=== PATIENT | male | born 1955 | race Caucasian/White ===

== ENCOUNTER 2022-12-05 19:26 | Inpatient (IN) | payer MEDICARE ==
--- NOTE | 2022-12-05 20:15 | ED ---
General Adult HPI - General Source: patient Mode of arrival: ambulatory <Chad Alba - Last Filed: 12/05/22 20:13> <Mariusz Alvarado - Last Filed: 12/05/22 23:59> - General Chief complaint: Urogenital Stated complaint: urination issues - History of Present Illness Initial comments: 67-year-old kidney transplant patient presents to the ED with a chief complaint of decreased urination. States over the past 2 or 3 days has had decreased urination despite normal eating and drinking habits. Associated fever. Denies dysuria. Denies hematuria. Denies abdominal pain. Other complaints. (Chad Alba) Dictation was produced using [employer] dictation software. please excuse any grammatical, word or spelling errors. Chief Complaint: 67-year-old male visiting in town from [place] presents to the ER for urinary retention and dysuria History of Present Illness: 67-year-old male has past medical history of kidney transplant. Kidney transplant was performed at [facility] approximately 15 years ago. Patient takes immunosuppressive medications. Over last 1 week patient has been having mild dysuria suprapubic pain. Patient also complaining of urinary retention. States that his urine appears more yellow than usual. Denies any testicular or penile pain. The ROS documented in this emergency department record has been reviewed and confirmed by me. Those systems with pertinent positive or negative responses have been documented in the HPI. All other systems are other negative and/or noncontributory. (Mariusz Alvarado) - Related Data Allergies Allergy/AdvReac Type Severity Reaction Status Date / Time allopurinol AdvReac Unknown Verified 12/05/22 20:06 Review of Systems ROS Other: All systems not noted in ROS Statement are negative. <Chad Alba - Last Filed: 12/05/22 20:13> ROS Other: All systems not noted in ROS Statement are negative. <Mariusz Alvarado - Last Filed: 12/05/22 23:59> ROS Statement: Those systems with pertinent positive or pertinent negative responses have been documented in the HPI. Past Medical History Past Medical History: Diabetes Mellitus Additional Past Medical History / Comment(s): Type 1, post transplant Additional Past Surgical History / Comment(s): Kidney transplant 2004 Past Psychological History: No Psychological Hx Reported Smoking Status: Never smoker Past Alcohol Use History: Occasional Past Drug Use History: None Reported <AnjaliChad - Last Filed: 12/05/22 20:13> General Exam <Mariusz Alvarado - Last Filed: 12/05/22 23:59> - General Exam Comments Initial Comments: PHYSICAL EXAM: General Impression: Alert and oriented x3, not in acute distress HEENT: Normocephalic atraumatic, extra-ocular movements intact, pupils equal and reactive to light bilaterally, mucous membranes moist. Cardiovascular: Heart regular rate and rhythm Chest: Able to complete full sentences, no retractions, no tachypnea Abdomen: abdomen soft, non-tender, non-distended, no organomegaly Musculoskeletal: Pulses present and equal in all extremities, no peripheral edema Motor: no focal deficits noted Neurological: CN II-XII grossly intact, no focal motor or sensory deficits noted Skin: Intact with no visualized rashes Psych: Normal affect and mood (Mariusz Alvarado) Course Vital Signs 12/05/22 19:59 Temperature 99.7 F H Pulse Rate 110 H Respiratory 16 Rate Blood Pressure 113/69 O2 Sat by Pulse 98 Oximetry Medical Decision Making - Lab Data Result diagrams: 12/05/22 22:00 12/05/22 22:00 <Maruisz Alvarado - Last Filed: 12/05/22 23:59> - Medical Decision Making Was pt. sent in by a medical professional or institution (SHANIQUA Marin, COMBAT INFORMATION CENTER OFFICER, urgent care, hospital, or custodial...) When possible be specific @ -No Did you speak to anyone other than the patient for history (EMS, parent, family, police, friend...)? What history was obtained from this source @ -No Did you review nursing and triage notes (agree or disagree)? Why? @ -I reviewed and agree with nursing and triage notes Were old charts reviewed (outside hosp., previous admission, EMS record, old EKG, old radiological studies, urgent care reports/EKG's, custodial records)? Report findings @ -No old charts were reviewed Differential Diagnosis (chest pain, altered mental status, abdominal pain women, abdominal pain men, vaginal bleeding, musculoskeletal, weakness, fever, dyspnea, syncope, headache, dizziness, GI bleed, back pain, seizure, CVA, palpatations, mental health)? @ -Differential Abdominal Pain Men: Appendicitis, cholecystitis, diverticulosis, ischemic bowel, pancreatitis, hepatitis, UTI, gastroenteritis, AAA, incarcerated hernia, bowel obstruction, constipation, inflammatory bowel, hepatitis, peptic ulcer disease, splenic infarction, perforated viscus, testicular torsion, this is not meant to be an all-inclusive list EKG interpreted by me (3pts min.). @ -None done X-rays interpreted by me (1pt min.). @ -None done CT interpreted by me (1pt min.). @ -None done U/S interpreted by me (1pt. min.). @ -None done What testing was considered but not performed or refused? (CT, X-rays, U/S, labs)? Why? @ -None What meds were considered but not given or refused? Why? @ -None Did you discuss the management of the patient with other professionals (professionals i.e. , PA, COMB[employer] INFORMATION CENTER OFFICER, lab, RT, psych nurse, social services counselor, launch commander [place] police, teacher, school services officer, caseworker protective services)? Give summary @ -Imaging and clinical presentation discussed with [facility] for admission Was smoking cessation discussed for >3mins.? @ -No Was critical care preformed (if so, how long)? @ -No Were there social determinants of health that impacted care today? How? (Homelessness, low income, unemployed, alcoholism, drug addiction, transportation, low edu. Level, literacy, decrease access to med. care, [facility], rehab)? @ -No Was there de-escalation of care discussed even if they declined (Discuss DNR or withdrawal of care, Hospice)? DNR status @ -No What co-morbidities impacted this encounter? (DM, HTN, Smoking, COPD, CAD, Cancer, CVA, ARF, Chemo, Hep., AIDS, mental health diagnosis, sleep apnea, morbid obesity)? @ -History of kidney transplant Was patient admitted / discharged? Hospital course, mention meds given and route, prescriptions, significant lab abnormalities, going to OR and other pertinent info. @ -67-year-old male presents emergency department for oliguria. Patient's history of kidney transplant. He also has associated abdominal pain and urinary symptoms. Vital signs upon arrival shows mild tachycardia 110. Patient's old. Bedside. Physical examination is benign. Elevated renal markers with a c reatinine of 2.4 BUN of 57. Patient states that his last creatinine was 1.5. Urinalysis suspicious for a urinary tract infection. Patient given ceftriaxone. Bladder scan was less than 1 50 mL. Patient be admitted with consultation to nephrology for acute kidney injury Undiagnosed new problem with uncertain prognosis? @ -No Drug Therapy requiring intensive monitoring for toxicity (Heparin, Nitro, Insulin, Cardizem)? @ -No Were any procedures done? @ -No Diagnosis/symptom? Acute, or Chronic, or Acute on Chronic? Uncomplicated (without systemic symptoms) or Complicated (systemic symptoms)? @ -1. Acute kidney injury, complicated by history of kidney transplant Side effects of treatment? @ -No Exacerbation, Progression, or Severe Exacerbation? @ -No Poses a threat to life or bodily function? How? (Chest pain, USA, MS, pneumonia, PE, COPD, DKA, ARF, appy, cholecystitis, CVA, Diverticulitis, Homicidal, Suicidal, threat to staff... and all critical care pts) @ -yes (Mariusz Alvarado) - Lab Data Lab Results 12/05/22 12/05/22 12/05/22 Range/Units 22:00 22:00 22:00 WBC 11.6 H (3.8-10.6) k/uL RBC 4.26 L (4.30-5.90) m/uL Hgb 12.6 L (13.0-17.5) gm/dL Hct 37.2 L (39.0-53.0) % MCV 87.4 (80.0-100.0) fL MCH 29.6 (25.0-35.0) pg MCHC 33.9 (31.0-37.0) g/dL RDW 13.1 (11.5-15.5) % Plt Count 256 (150-450) k/uL MPV 7.2 Neutrophils % 78 % Lymphocytes % 11 % Monocytes % 7 % Eosinophils % 2 % Basophils % 0 % Neutrophils # 9.1 H (1.3-7.7) k/uL Lymphocytes # 1.3 (1.0-4.8) k/uL Monocytes # 0.8 (0-1.0) k/uL Eosinophils # 0.2 (0-0.7) k/uL Basophils # 0.0 (0-0.2) k/uL Sodium 132 L (137-145) mmol/L Potassium 4.2 (3.5-5.1) mmol/L Chloride 94 L (98-107) mmol/L Carbon Dioxide 28 (22-30) mmol/L Anion Gap 10 mmol/L BUN 57 H (9-20) mg/dL Creatinine 2.41 H (0.66-1.25) mg/dL Est GFR (CKD-EPI)AfAm 31 (>60 ml/min/1.73 sqM) Est GFR (CKD-EPI)NonAf 27 (>60 ml/min/1.73 sqM) Glucose 99 (74-99) mg/dL Plasma Lactic Acid Fidel 0.8 (0.7-2.0) mmol/L Calcium 9.6 (8.4-10.2) mg/dL Total Bilirubin 1.4 H (0.2-1.3) mg/dL AST 49 (17-59) U/L ALT 28 (4-49) U/L Alkaline Phosphatase 146 H (38-126) U/L Total Protein 6.8 (6.3-8.2) g/dL Albumin 4.0 (3.5-5.0) g/dL Amylase 33 (30-110) U/L Lipase 26 (23-300) U/L Urine Color Urine Appearance (Clear) Urine pH (5.0-8.0) Ur Specific [place] (1.001-1.035) Urine Protein (Negative) Urine Glucose (UA) (Negative) Urine Ketones (Negative) Urine Blood (Negative) Urine Nitrite (Negative) Urine Bilirubin (Negative) Urine Urobilinogen (<2.0) mg/dL Ur Leukocyte Esterase (Negative) Urine RBC (0-5) /hpf Urine WBC (0-5) /hpf Ur Squamous Epith Cells (0-4) /hpf Hyaline Casts (0-2) /lpf 12/05/22 Range/Units 22:01 WBC (3.8-10.6) k/uL RBC (4.30-5.90) m/uL Hgb (13.0-17.5) gm/dL Hct (39.0-53.0) % MCV (80.0-100.0) fL MCH (25.0-35.0) pg MCHC (31.0-37.0) g/dL RDW (11.5-15.5) % Plt Count (150-450) k/uL MPV Neutrophils % % Lymphocytes % % Monocytes % % Eosinophils % % Basophils % % Neutrophils # (1.3-7.7) k/uL Lymphocytes # (1.0-4.8) k/uL Monocytes # (0-1.0) k/uL Eosinophils # (0-0.7) k/uL Basophils # (0-0.2) k/uL Sodium (137-145) mmol/L Potassium (3.5-5.1) mmol/L Chloride (98-107) mmol/L Carbon Dioxide (22-30) mmol/L Anion Gap mmol/L BUN (9-20) mg/dL Creatinine (0.66-1.25) mg/dL Est GFR (CKD-EPI)AfAm (>60 ml/min/1.73 sqM) Est GFR (CKD-EPI)NonAf (>60 ml/min/1.73 sqM) Glucose (74-99) mg/dL Plasma Lactic Acid Fidel (0.7-2.0) mmol/L Calcium (8.4-10.2) mg/dL Total Bilirubin (0.2-1.3) mg/dL AST (17-59) U/L ALT (4-49) U/L Alkaline Phosphatase (38-126) U/L Total Protein (6.3-8.2) g/dL Albumin (3.5-5.0) g/dL Amylase (30-110) U/L Lipase (23-300) U/L Urine Color Yellow Urine Appearance Cloudy (Clear) Urine pH 5.0 (5.0-8.0) Ur Specific [place] 1.027 (1.001-1.035) Urine Protein 1+ H (Negative) Urine Glucose (UA) Negative (Negative) Urine Ketones Trace H (Negative) Urine Blood Moderate H (Negative) Urine Nitrite Negative (Negative) Urine Bilirubin Negative (Negative) Urine Urobilinogen <2.0 (<2.0) mg/dL Ur Leukocyte Esterase Small H (Negative) Urine RBC 58 H (0-5) /hpf Urine WBC 31 H (0-5) /hpf Ur Squamous Epith Cells 1 (0-4) /hpf Hyaline Casts 23 H (0-2) /lpf Disposition <Cabatu,Chad - Last Filed: 12/05/22 20:13> Decision Time: 23:59 <Mariusz Alvarado - Last Filed: 12/05/22 23:59> Clinical Impression: GUY (acute kidney injury) Disposition: ADMITTED IP TO THIS HOSP Condition: Fair Referrals: None,Stated [Primary Care Provider] - 1-2 days
[2022-12-05 22:10] LABS: Basophils % (A) 0 %; Eosinophils # (A) 0.2 k/uL (0-0.7); Eosinophils % (A) 2 %; HCT 37.2 % (39.0-53.0); HGB 12.6 gm/dL (13.0-17.5); Lymphocytes # (A) 1.3 k/uL (1.0-4.8); Lymphocytes % (A) 11 %; MCH 29.6 pg (25.0-35.0); MCHC 33.9 g/dL (31.0-37.0); MCV 87.4 fL (80.0-100.0); Mean Platelet Volume 7.2; Monocytes # (A) 0.8 k/uL (0-1.0); Monocytes % (A) 7 %; Neutrophils # (A) 9.1 k/uL (1.3-7.7); Neutrophils % (A) 78 %; Platelet Count 256 k/uL (150-450); RBC 4.26 m/uL (4.30-5.90); RDW 13.1 % (11.5-15.5); WBC 11.6 k/uL (3.8-10.6)
[2022-12-05 22:22] LABS: ALT 28 U/L (4-49); AST 49 U/L (17-59); African American GFR (CKD) 31 (>60 ml/min/1.73 sqM); Alkaline Phosphatase 146 U/L (38-126); Amylase 33 U/L (30-110); Anion Gap 10 mmol/L; Blood Urea Nitrogen 57 mg/dL (9-20); Calcium 9.6 mg/dL (8.4-10.2); Carbon Dioxide 28 mmol/L (22-30); Chloride 94 mmol/L (98-107); Glucose 99 mg/dL (74-99); Lipase 26 U/L (23-300); Non-African American GFR(CKD) 27 (>60 ml/min/1.73 sqM); Potassium 4.2 mmol/L (3.5-5.1); Sodium 132 mmol/L (137-145); Total Bilirubin 1.4 mg/dL (0.2-1.3); Total Protein 6.8 g/dL (6.3-8.2)
[2022-12-05 22:48] LABS: Appearance,Urine Cloudy (Clear); Bilirubin,Urine Negative (Negative); Blood,Urine Moderate (Negative); Color,Urine Yellow; Glucose,Urine (UA) Negative (Negative); Hyaline Casts,Urine 23 /lpf (0-2); Ketones,Urine Trace (Negative); Leukocyte Esterase,Urine Small (Negative); Nitrite,Urine Negative (Negative); Protein,Urine 1+ (Negative); RBC,Urine 58 /hpf (0-5); Specific Gravity,Urine 1.027 (1.001-1.035); Squamous Epithelial Cell,Urine 1 /hpf (0-4); Urobilinogen,Urine <2.0 mg/dL (<2.0); WBC,Urine 31 /hpf (0-5)
[2022-12-05] MEDS ORDERED: NALOXONE 0.4 MG/ML 1 ML VIAL IV PRN (23:54)
[2022-12-05] MEDS ORDERED: cefTRIAXone IN SWFI 1,000 MG/10 ML SYRINGE IVP STA (23:54)
[2022-12-06] MEDS: SODIUM CHLORIDE 0.9% 1,000 ML IV SCH ×2 (00:29→12:14)
[2022-12-06] MEDS ORDERED: INSULIN ASPART (NovoLOG) 100 UNIT/ML VIAL SQ ONE (01:21)
[2022-12-06] MEDS ORDERED: DEXTROSE 50% SYRINGE 50 ML IVP PRN ×4 (01:58→09:18)
[2022-12-06 07:40] LABS: Glucose,Whole Blood 139 mg/dL (70-110)
[2022-12-06] MEDS: INSULIN ASPART (NovoLOG) 100 UNIT/ML VIAL SQ SCH ×4 (07:51→19:54)
[2022-12-06] MEDS ORDERED: SIMETHICONE 80 MG CHEWABLE PO PRN (09:17)
[2022-12-06 11:05] LABS: Glucose,Whole Blood 260 mg/dL (70-110)
--- NOTE | 2022-12-06 11:27 | US ---
EXAMINATION TYPE: US renal transplant w dop DATE OF EXAM: 12/06/2022 COMPARISON: NONE CLINICAL INDICATION: Male, 67 years old with history of Jacklyn; JACKLYN per order. Hx of transplant kidney i n RLQ in 2004. EXAM PERFORMED: Grayscale on [place] kidneys and Doppler duplex and Grayscale imaging of the transplan [place] kidney. EXAM MEASUREMENTS: [place] Right Kidney: Not visualized [place] Left Kidney: Not visualized Transplant Kidney: 12.4 x 7.0 x 6.3 cm. Location of transplanted kidney: Right lower quadrant ANATOMY: [place] Right Kidney: Not visualized [place] Left Kidney: Not visualized Transplant Kidney: Anechoic appearance medially-renal pelvis appears dilated. Transplant kidney measures upper limits of normal versus minimally enlarged. There is arterial and ve nous spectral waveforms present. Low resistance arterial waveforms noted. Bladder: Appears wnl Bilateral Jets seen: No IMPRESSION: 1. Transplant kidney demonstrates mild dilation of the collecting system. Resistive indices are not calculated by the mri technologist. There is arterial and venous flow noted to the kidney. 2. [place] kidneys not visualized.
[2022-12-06 11:36] LABS: Basophils % (A) 0 %; Eosinophils # (A) 0.1 k/uL (0-0.7); Eosinophils % (A) 2 %; HCT 34.3 % (39.0-53.0); HGB 11.3 gm/dL (13.0-17.5); Lymphocytes # (A) 0.6 k/uL (1.0-4.8); Lymphocytes % (A) 9 %; MCH 29.9 pg (25.0-35.0); MCHC 32.9 g/dL (31.0-37.0); Mean Platelet Volume 7.3; Monocytes # (A) 0.5 k/uL (0-1.0); Monocytes % (A) 7 %; Neutrophils # (A) 5.4 k/uL (1.3-7.7); Neutrophils % (A) 81 %; Platelet Count 197 k/uL (150-450); RBC 3.77 m/uL (4.30-5.90); RDW 13.3 % (11.5-15.5); WBC 6.7 k/uL (3.8-10.6)
[2022-12-06 11:42] LABS: African American GFR (CKD) 43 (>60 ml/min/1.73 sqM); Anion Gap 11 mmol/L; Blood Urea Nitrogen 52 mg/dL (9-20); Calcium 8.8 mg/dL (8.4-10.2); Carbon Dioxide 23 mmol/L (22-30); Chloride 96 mmol/L (98-107); Glucose 236 mg/dL (74-99); Non-African American GFR(CKD) 37 (>60 ml/min/1.73 sqM); Potassium 4.9 mmol/L (3.5-5.1); Sodium 130 mmol/L (137-145)
[2022-12-06] MEDS: TACROLIMUS 1 MG CAP PO SCH ×2 (11:59→19:55)
[2022-12-06] MEDS: SODIUM BICARBONATE TAB 650 MG TAB PO SCH ×2 (11:59→19:54)
[2022-12-06] MEDS: FAMOTIDINE 20 MG TAB PO PRN (12:00)
[2022-12-06] MEDS ORDERED: TAMSULOSIN 0.4 MG CAP.ER.24H PO SCH (12:00)
[2022-12-06] MEDS: LEVOTHYROXINE 88 MCG TAB PO SCH (12:00)
--- NOTE | 2022-12-06 13:13 | P.HPIM ---
History of Present Illness H&P Date: 12/06/22 History of present illness; patient is 67-year-old gentleman with past medical history significant for renal transplant, insulin-dependent diabetes mellitus presented to the ER because of decreased urination. Patient received renal transplant about 15 years ago. For the last couple of days patient has been experiencing decreased urination. Patient also noticing painful urination and pain in the suprapubic area. Patient also noticed that his urine was darker in color, denied any blood in urine. There was no complain of increased frequency of micturition. No complaint of fever or chills. Patient denied any nausea, vomiting or abdominal pain. Patient also has been noticing episodes of chest pain. Chest pain is Central in location, brought on by exertion, no relieving factors associated, pain is nonradiating. Patient complaining of shortness of breath on exertion as well. Denies any swelling of feet. Because of these complaints patient came to the ER of [facility]. Initial lab work done in the ER showed white count 11.6, hemoglobin 12.6, platelet count 256, sodium 132 Potassium 4.2, BUN57, creatinine 2.41 Patient was admitted to the medicine service for further evaluation and treatment REVIEW OF SYSTEMS: CONSTITUTIONAL: No fever, no malaise, no fatigue. HEENT: No recent visual problems or hearing problems. Denied any sore throat. CARDIOVASCULAR: No orthopnea, PND, no palpitations, no syncope. PULMONARY: no cough, no hemoptysis. GASTROINTESTINAL: No diarrhea, no nausea, no vomiting, no abdominal pain. NEUROLOGICAL: No headaches, no weakness, no numbness. HEMATOLOGICAL: Denies any bleeding or petechiae. GENITOURINARY: As mentioned in HPI MUSCULOSKELETAL/RHEUMATOLOGICAL: Denies any joint pain, swelling, or any muscle pain. ENDOCRINE: Denies any polyuria or polydipsia. The rest of the 14-point review of systems is negative. PHYSICAL EXAMINATION: GENERAL: The patient is alert and oriented x3, not in any acute distress. Well developed, well nourished. HEENT: Pupils are round and equally reacting to light. EOMI. No scleral icterus. No conjunctival pallor. Normocephalic, atraumatic. No pharyngeal erythema. No thyromegaly. CARDIOVASCULAR: S1 and S2 present. No murmurs, rubs, or gallops. PULMONARY: Chest is clear to auscultation, no wheezing or crackles. ABDOMEN: Soft, nontender, nondistended, normoactive bowel sounds. No palpable organomegaly. MUSCULOSKELETAL: No joint swelling or deformity. EXTREMITIES: No cyanosis, clubbing, or pedal edema. NEUROLOGICAL: Gross neurological examination did not reveal any focal deficits. SKIN: No rashes. Assessment and plan Acute kidney injury UTI History of renal transplant Insulin-dependent diabetes mellitus Chest pain Exertional dyspnea Plan; monitor vital signs Monitor CBC Monitor CMP Strict I's and O's Daily weights Continue IV fluids Avoid nephrotoxic agents Check tacrolimus levels Ordered ultrasound of kidneys Consult nephrology Consult cardiology Resume home meds DVT prophylaxis: Past Medical History Past Medical History: Diabetes Mellitus Additional Past Medical History / Comment(s): DM Type 1 post transplant, IgA nephropathy History of Any Multi-Drug Resistant Organisms: None Reported Additional Past Surgical History / Comment(s): Kidney transplant 2004, PD cath/removal, eye surgery as child Past Psychological History: No Psychological Hx Reported Smoking Status: Never smoker Past Alcohol Use History: Occasional Past Drug Use History: None Reported Medications and Allergies Home Medications Medication Instructions Recorded Confirmed Type Colchicine 0.6 mg PO DAILY 12/06/22 12/06/22 History Famotidine [Pepcid] 20 mg PO BID PRN 12/06/22 12/06/22 History Fluocinonide 0.05% [Lidex 0.05% 12/06/22 History cream] Insulin Glargine [Lantus Vial] 22 unit SQ HS 12/06/22 12/06/22 History Levothyroxine Sodium 88 mcg PO 0900 12/06/22 12/06/22 History Loperamide [Imodium] 2 mg PO Q6HR PRN 12/06/22 12/06/22 History Magnesium 400 mg PO BID 12/06/22 12/06/22 History Simethicone 180 mg PO 5XD PRN 12/06/22 12/06/22 History Simvastatin 40 mg PO HS 12/06/22 12/06/22 History Sodium Bicarbonate Tab 650 mg PO BID 12/06/22 12/06/22 History Tacrolimus [Prograf] 2 mg PO 2100 12/06/22 12/06/22 History Tacrolimus [Prograf] 3 mg PO 0900 12/06/22 12/06/22 History Tamsulosin HCl [Flomax] 0.4 mg PO DAILY 12/06/22 12/06/22 History hydroCHLOROthiazide 12.5 mg PO DAILY 12/06/22 12/06/22 History mycophenolate mofetiL [Cellcept] 1,000 mg PO BID 12/06/22 12/06/22 History Allergies Allergy/AdvReac Type Severity Reaction Status Date / Time allopurinol AdvReac Unknown Verified 12/05/22 20:06 Physical Exam Vitals: Vital Signs Temp Pulse Pulse Resp BP BP Pulse Ox 12/06/22 07:39 98.5 F 100 16 115/70 96 12/06/22 00:45 98 18 117/72 96 12/05/22 23:51 98.6 F 100 18 131/71 99 12/05/22 19:59 99.7 F H 110 H 16 113/69 98 Intake and Output 12/05/22 12/06/22 12/06/22 22:59 06:59 14:59 Other: # Voids 1 Weight 74.389 kg 74.389 kg Results CBC & Chem 7: 12/06/22 09:55 12/06/22 09:55 Labs: Abnormal Lab Results - Last 24 Hours (Table) 12/05/22 12/05/22 12/05/22 Range/Units 22:00 22:00 22:01 WBC 11.6 H (3.8-10.6) k/uL RBC 4.26 L (4.30-5.90) m/uL Hgb 12.6 L (13.0-17.5) gm/dL Hct 37.2 L (39.0-53.0) % Neutrophils # 9.1 H (1.3-7.7) k/uL Sodium 132 L (137-145) mmol/L Chloride 94 L (98-107) mmol/L BUN 57 H (9-20) mg/dL Creatinine 2.41 H (0.66-1.25) mg/dL POC Glucose (mg/dL) (70-110) mg/dL Total Bilirubin 1.4 H (0.2-1.3) mg/dL Alkaline Phosphatase 146 H (38-126) U/L Urine Protein 1+ H (Negative) Urine Ketones Trace H (Negative) Urine Blood Moderate H (Negative) Ur Leukocyte Esterase Small H (Negative) Urine RBC 58 H (0-5) /hpf Urine WBC 31 H (0-5) /hpf Hyaline Casts 23 H (0-2) /lpf 12/06/22 Range/Units 07:39 WBC (3.8-10.6) k/uL RBC (4.30-5.90) m/uL Hgb (13.0-17.5) gm/dL Hct (39.0-53.0) % Neutrophils # (1.3-7.7) k/uL Sodium (137-145) mmol/L Chloride (98-107) mmol/L BUN (9-20) mg/dL Creatinine (0.66-1.25) mg/dL POC Glucose (mg/dL) 139 H (70-110) mg/dL Total Bilirubin (0.2-1.3) mg/dL Alkaline Phosphatase (38-126) U/L Urine Protein (Negative) Urine Ketones (Negative) Urine Blood (Negative) Ur Leukocyte Esterase (Negative) Urine RBC (0-5) /hpf Urine WBC (0-5) /hpf Hyaline Casts (0-2) /lpf Thrombosis Risk Factor Assmnt - Choose All That Apply Any of the Below Risk Factors Present?: No Other Risk Factors: Yes Each Risk Factor Represents 2 Points: Age 61-74 years Other congenital or acquired thrombophilia - If yes, enter type in comment: No Thrombosis Risk Factor Assessment Total Risk Factor Score: 2 Thrombosis Risk Factor Assessment Level: Low Risk
--- NOTE | 2022-12-06 13:27 | P.NPCON ---
History of Present Illness - Reason for Consult acute renal failure - History of Present Illness Patient is a 67-year-old male with history of donor renal transplant for IgA nephropathy about 15 years ago. Patient desires in [place] and is here on vacation. He is admitted to the hospital with history of decreased urine output, abdominal discomfort. Patient initially denied any fever or chills however today he was noted to have fever of 100.5F oral. No history of cough however patient admits to some shortness of breath on exertion which is chronic No complaints of chest pain No history of nausea vomiting. Patient states his baseline creatinine had been about 1.6 mg/dL It was 2.4 and admission and down to 1.8 today. Patient is maintained on IV fluids UA is suggestive of UTI. Patient has history of BPH and is maintained on Flomax at home. No history of repeated urinary tract infections. Maintained on CellCept and tacrolimus for immunosuppression. Review of Systems As per HPI. Past Medical History Past Medical History: Diabetes Mellitus Additional Past Medical History / Comment(s): DM Type 1 post transplant, IgA nephropathy History of Any Multi-Drug Resistant Organisms: None Reported Additional Past Surgical History / Comment(s): Kidney transplant 2004, PD cath/removal, eye surgery as child Past Psychological History: No Psychological Hx Reported Smoking Status: Never smoker Past Alcohol Use History: Occasional Past Drug Use History: None Reported Medications and Allergies Home Medications Medication Instructions Recorded Confirmed Type Colchicine 0.6 mg PO DAILY 12/06/22 12/06/22 History Famotidine [Pepcid] 20 mg PO BID PRN 12/06/22 12/06/22 History Fluocinonide 0.05% [Lidex 0.05% 12/06/22 History cream] Insulin Glargine [Lantus Vial] 22 unit SQ 12/06/22 12/06/22 History Levothyroxine Sodium 88 mcg PO 0900 12/06/22 12/06/22 History Loperamide [Imodium] 2 mg PO Q6HR PRN 12/06/22 12/06/22 History Magnesium 400 mg PO BID 12/06/22 12/06/22 History Simethicone 180 mg PO 5XD PRN 12/06/22 12/06/22 History Simvastatin 40 mg PO HS 12/06/22 12/06/22 History Sodium Bicarbonate Tab 650 mg PO BID 12/06/22 12/06/22 History Tacrolimus [Prograf] 2 mg PO 2100 12/06/22 12/06/22 History Tacrolimus [Prograf] 3 mg PO 0900 12/06/22 12/06/22 History Tamsulosin HCl [Flomax] 0.4 mg PO DAILY 12/06/22 12/06/22 History hydroCHLOROthiazide 12.5 mg PO DAILY 12/06/22 12/06/22 History mycophenolate mofetiL [Cellcept] 1,000 mg PO BID 12/06/22 12/06/22 History Allergies Allergy/AdvReac Type Severity Reaction Status Date / Time allopurinol AdvReac Unknown Verified 12/06/22 13:15 Physical Exam Vitals: Vital Signs Temp Pulse Pulse Resp BP BP Pulse Ox 12/06/22 13:05 100.5 F H 12/06/22 07:39 98.5 F 100 16 115/70 96 12/06/22 00:45 98 18 117/72 96 12/05/22 23:51 98.6 F 100 18 131/71 99 12/05/22 19:59 99.7 F H 110 H 16 113/69 98 Intake and Output 12/05/22 12/06/22 12/06/22 22:59 06:59 14:59 Other: # Voids 1 Weight 74.389 kg 74.389 kg Awake, comfortable, not in acute distress Alert oriented 3 Examination of the heart S1 and S2 Examination the lungs bilateral breath sounds are heard Abdomen is soft nontender. Renal allograft nontender Examination of lower extremity shows no edema [employer] exam grossly intact Results - Lab Results Most recent lab results Calcium 8.8 mg/dL (8.4-10.2) 12/06/22 09:55 Magnesium 1.9 mg/dL (1.6-2.3) 12/06/22 00:29 12/06/22 09:55 12/06/22 09:55 Assessment and Plan Assessment: 1. Acute kidney injury associated with underlying infection, currently nonoliguric. Rule out urine retention. Blood pressure is also on the lower side. UA shows 1+ protein and moderate blood WBCs 31 and RBCs 58. Ultrasound of the transplant kidney shows mild allocation of the collecting system. Bladder is not distended. 2. 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 3. Status post donor renal transplant about 15 years ago for IgA nep hropathy maintained on tacrolimus and CellCept. 4. Pyuria rule out UTI 5. Dyspnea on exertion with no previously diagnosed coronary artery disease or pulmonary disease Plan: Continue with IV fluids Continue with IV antibiotics Check post void bladder scan Follow-up and urine cultures Check chest x-ray Follow-up on tacrolimus level Continue with current immunosuppression. Repeat labs in a.m. Thank you for the consultation. We will continue to follow the patient with you during his hospitalization
[2022-12-06] MEDS: ACETAMINOPHEN TAB 325 MG TAB PO PRN ×2 (13:36→20:07)
--- NOTE | 2022-12-06 13:53 | XR ---
EXAMINATION TYPE: XR chest 2V DATE OF EXAM: 12/06/2022 1:49 PM COMPARISON: None TECHNIQUE: XR chest 2V Frontal and lateral views of the chest. CLINICAL INDICATION:Male, 67 years old with history of Dyspnea; FINDINGS: Lungs/Pleura: There is no evidence of pleural effusion, focal consolidation, or pneumothorax. Pulmonary vascularity: Unremarkable. Heart/mediastinum: Cardiomediastinal silhouette is unremarkable. Musculoskeletal: No acute osseous pathology. IMPRESSION: No acute cardiopulmonary disease/process.
--- NOTE | 2022-12-06 15:17 | P.CRDCN ---
History of Present Illness Consult date: 12/06/22 Chief complaint: Chest discomfort History of present illness: The patient is a 67-year-old gentleman with diabetes and hypertension and dyslipidemia and history of renal transplant in 2014 presented to the hospital complaining of chest discomfort. He described intermittent episodes of chest discomfort in the middle of the chest as a dull/pressure on the chest was no radiation and no associated symptoms. Beside that lately he has been exper iencing increasing in the shortness of breath with exertion. No dizziness or lightheadedness and no feeling of heart racing or fluttering and no presyncope or syncope. He does have multiple risk factors for CAD including diabetes and hypertension and dyslipidemia. I'm not quite sure if he is physically very active. He was found to be in mild renal failure and he is known to have kidney transplant. Currently the nephrology service is on the case. The chest x-ray did not show any acute abnormalities. No cardiac workup including EKG or cardiac enzymes performed at this point and no echocardiogram was performed as well. The examination is remarkable for regular rhythm with a systolic murmur at the right upper sternal border and clear breathing sounds bilaterally and no lower extremity edema Assessment Chest discomfort Shortness of breath Multiple risk factors including diabetes and hypertension and dyslipidemia History of renal transplant Plan Obtain baseline EKG Serial cardiac enzymes to rule out acute coronary syndrome Obtain an echocardiogram was Doppler Consider obtaining a stress test to rule out severe CAD if the cardiac enzymes are unremarkable Past Medical History Past Medical History: Diabetes Mellitus Additional Past Medical History / Comment(s): DM Type 1 post transplant, IgA nephropathy History of Any Multi-Drug Resistant Organisms: None Reported Additional Past Surgical History / Comment(s): Kidney transplant 2004, PD cath/removal, eye surgery as child Past Psychological History: No Psychological Hx Reported Smoking Status: Never smoker Past Alcohol Use History: Occasional Past Drug Use History: None Reported Medications and Allergies Home Medications Medication Instructions Recorded Confirmed Type Colchicine 0.6 mg PO DAILY 12/06/22 12/06/22 History Famotidine [Pepcid] 20 mg PO BID 12/06/22 12/06/22 History Fluocinonide 0.05% [Lidex 0.05% 1 applic TOPICAL DAILY PRN 12/06/22 12/06/22 History cream] INSULIN LISPRO (HumaLOG) [humaLOG] See Protocol SQ ACHS 12/06/22 12/06/22 History Insulin Glargine [Lantus Vial] 22 unit SQ HS 12/06/22 12/06/22 History L.acidoph,Paracasei, B.lactis 1 cap PO DAILY 12/06/22 12/06/22 History [Probiotic] Levothyroxine Sodium 88 mcg PO DAILY 12/06/22 12/06/22 History Loperamide [Imodium] 2 mg PO Q6HR PRN 12/06/22 12/06/22 History Magnesium Oxide [Mag-Ox] 800 mg PO BID 12/06/22 12/06/22 History Multivitamins, Thera [Multivitamin 1 tab PO DAILY 12/06/22 12/06/22 History (formulary)] Simethicone 180 mg PO 5XD PRN 12/06/22 12/06/22 History Simvastatin 40 mg PO HS 12/06/22 12/06/22 History Sodium Bicarbonate Tab 1,300 mg PO BID 12/06/22 12/06/22 History Tacrolimus [Prograf] 2 mg PO HS 12/06/22 12/06/22 History Tacrolimus [Prograf] 3 mg PO DAILY 12/06/22 12/06/22 History Tamsulosin HCl [Flomax] 0.4 mg PO HS 12/06/22 12/06/22 History Turmeric Root Extract [Turmeric] 500 mg PO DAILY 12/06/22 12/06/22 History Ubidecarenone [Coenzyme Q10] 200 mg PO DAILY 12/06/22 12/06/22 History hydroCHLOROthiazide 12.5 mg PO DAILY 12/06/22 12/06/22 History mycophenolate mofetiL [Cellcept] 1,000 mg PO BID 12/06/22 12/06/22 History Allergies Allergy/AdvReac Type Severity Reaction Status Date / Time allopurinol AdvReac Unknown Verified 12/06/22 13:15 Physical Exam Vitals: Vital Signs Temp Pulse Pulse Resp BP BP Pulse Ox 12/06/22 14:43 101.5 F H 12/06/22 13:05 100.5 F H 12/06/22 07:39 98.5 F 100 16 115/70 96 12/06/22 00:45 98 18 117/72 96 12/05/22 23:51 98.6 F 100 18 131/71 99 12/05/22 19:59 99.7 F H 110 H 16 113/69 98 Intake and Output 12/06/22 12/06/22 12/06/22 06:59 14:59 22:59 Other: Voiding Method Toilet Urinal # Voids 1 Weight 74.389 kg Results 12/06/22 09:55 12/06/22 09:55 Cardiac Enzymes 12/05/22 Range/Units 22:00 AST 49 (17-59) U/L CBC 12/05/22 12/06/22 Range/Units 22:00 09:55 WBC 11.6 H 6.7 (3.8-10.6) k/uL RBC 4.26 L 3.77 L (4.30-5.90) m/uL Hgb 12.6 L 11.3 L (13.0-17.5) gm/dL Hct 37.2 L 34.3 L (39.0-53.0) % Plt Count 256 197 (150-450) k/uL Comprehensive Metabolic Panel 12/05/22 12/06/22 Range/Units 22:00 09:55 Sodium 132 L 130 L (137-145) mmol/L Potassium 4.2 4.9 (3.5-5.1) mmol/L Chloride 94 L 96 L (98-107) mmol/L Carbon Dioxide 28 23 (22-30) mmol/L BUN 57 H 52 H (9-20) mg/dL Creatinine 2.41 H 1.83 H (0.66-1.25) mg/dL Glucose 99 236 H (74-99) mg/dL Calcium 9.6 8.8 (8.4-10.2) mg/dL AST 49 (17-59) U/L ALT 28 (4-49) U/L Alkaline Phosphatase 146 H (38-126) U/L Total Protein 6.8 (6.3-8.2) g/dL Albumin 4.0 (3.5-5.0) g/dL Current Medications Generic Name Dose Route Start Last Admin Trade Name Freq PRN Reason Stop Dose Admin Acetaminophen 650 mg 12/06/22 13:06 12/06/22 13:36 Acetaminophen Tab 325 Mg Tab PO 650 mg Q6HR PRN Administration Fever and/ or Pain Atorvastatin Calcium 20 mg 12/06/22 21:00 Atorvastatin 20 Mg Tab PO HS EMILIANO Dextrose/Water 25 ml 12/06/22 01:58 Dextrose 50% Syringe 50 Ml IVP PER PROTOCOL PRN Hypoglycemia Protocol Dextrose/Water 50 ml 12/06/22 01:58 Dextrose 50% Syringe 50 Ml IVP PER PROTOCOL PRN Hypoglycemia Protocol Dextrose/Water 25 ml 12/06/22 09:18 Dextrose 50% Syringe 50 Ml IVP PER PROTOCOL PRN Hypoglycemia Protocol Dextrose/Water 50 ml 12/06/22 09:18 Dextrose 50% Syringe 50 Ml IVP PER PROTOCOL PRN Hypoglycemia Protocol Famotidine 20 mg 12/06/22 09:17 12/06/22 12:00 Famotidine 20 Mg Tab PO 20 mg BID PRN Administration Dyspepsia Sodium Chloride 1,000 mls @ 75 mls/hr 12/05/22 23:45 12/06/22 12:14 Saline 0.9% IV 75 mls/hr .[id number] EMILIANO Administration Insulin Aspart 0 unit 12/06/22 07:30 12/06/22 12:10 Insulin Aspart (Novolog) 100 Unit/Ml Vial SQ 13 unit ACHS EMILIANO Administration Protocol Insulin Detemir 22 unit 12/06/22 21:00 Insulin Detemir (Levemir) 100 Unit/Ml Syr SQ HS EMILIANO Levothyroxine Sodium 88 mcg 12/06/22 12:00 12/06/22 12:00 Levothyroxine 88 Mcg Tab PO 88 mcg 0900 EMILIANO Administration Mycophenolate Mofetil 1,000 mg 12/06/22 12:00 12/06/22 11:58 Mycophenolate Mofetil 500 Mg Tab PO 1,000 mg BID EMILIANO Administration Naloxone HCl 0.2 mg 12/05/22 23:54 Naloxone 0.4 Mg/Ml 1 Ml Vial IV Q2M PRN Opioid Reversal Simethicone 160 mg 12/06/22 09:17 Simethicone 80 Mg Chewable PO 5XD PRN Bloating Sodium Bicarbonate 650 mg 12/06/22 12:00 12/06/22 11:59 Sodium Bicarbonate Tab 650 Mg Tab PO 650 mg BID EMILIANO Administration Tacrolimus 2 mg 12/06/22 21:00 Tacrolimus 1 Mg Cap PO 2100 EMILIANO Tacrolimus 3 mg 12/06/22 12:00 12/06/22 11:59 Tacrolimus 1 Mg Cap PO 3 mg 0900 EMILIANO Administration Tamsulosin HCl 0.4 mg 12/06/22 21:00 Tamsulosin 0.4 Mg Cap.Er.24h PO HS EMILIANO Intake and Output 12/06/22 12/06/22 12/06/22 06:59 14:59 22:59 Other: Voiding Method Toilet Urinal # Voids 1 Weight 74.389 kg 12/06/22 09:55 12/06/22 09:55
[2022-12-06 16:47] LABS: Glucose,Whole Blood 201 mg/dL (70-110)
[2022-12-06 19:48] LABS: Glucose,Whole Blood 185 mg/dL (70-110)
[2022-12-06] MEDS: TAMSULOSIN 0.4 MG CAP.ER.24H PO SCH (19:55)
[2022-12-06] MEDS: ATORVASTATIN 20 MG TAB PO SCH (19:55)
--- NOTE | 2022-12-06 20:24 | P.CONS ---
History of Present Illness - Reason for Consult Consult date: 12/06/22 - History of Present Illness Patient is a 67-year-old male with a past medical history significant for renal failure secondary to IgA nephropathy in this patient who is status post donor renal transplant 15 years ago patient resides in [place] and is here on vacation presenting to the hospital for not feeling well did have a decreased urine output and burning of urine and not feeling well patient mention no change in his immunosuppressive medication recently patient denies having any headache did have mild URI symptoms no chest pain or shortness of breath occasional cough some nausea but no vomiting no abdominal pain or diarrhea on presentation to the hospital he did have a low-grade fever of 99.7 and he did spike a fever of 101.5 F this afternoon that has prompted this infectious disease consultation patient was mildly tachycardic not hypoxic or need for supplemental oxygen and hemodynamically stable patient did have active lab 0.6 with a left shift BUN and creatinine mildly elevated bilirubin mild elevated the liver enzymes amylase lipase has been negative urine was positive Past Medical History Past Medical History: Diabetes Mellitus Additional Past Medical History / Comment(s): DM Type 1 post transplant, IgA nephropathy History of Any Multi-Drug Resistant Organisms: None Reported Additional Past Surgical History / Comment(s): Kidney transplant 2004, PD cath/removal, eye surgery as child Past Psychological History: No Psychological Hx Reported Smoking Status: Never smoker Past Alcohol Use History: Occasional Past Drug Use History: None Reported Medications and Allergies Home Medications Medication Instructions Recorded Confirmed Type Colchicine 0.6 mg PO DAILY 12/06/22 12/06/22 History Famotidine [Pepcid] 20 mg PO BID 12/06/22 12/06/22 History Fluocinonide 0.05% [Lidex 0.05% 1 applic TOPICAL DAILY PRN 12/06/22 12/06/22 History cream] INSULIN LISPRO (HumaLOG) [humaLOG] See Protocol SQ ACHS 12/06/22 12/06/22 History Insulin Glargine [Lantus Vial] 22 unit SQ HS 12/06/22 12/06/22 History L.acidoph,Paracasei, B.lactis 1 cap PO DAILY 12/06/22 12/06/22 History [Probiotic] Levothyroxine Sodium 88 mcg PO DAILY 12/06/22 12/06/22 History Loperamide [Imodium] 2 mg PO Q6HR PRN 12/06/22 12/06/22 History Magnesium Oxide [Mag-Ox] 800 mg PO BID 12/06/22 12/06/22 History Multivitamins, Thera [Multivitamin 1 tab PO DAILY 12/06/22 12/06/22 History (formulary)] Simethicone 180 mg PO 5XD PRN 12/06/22 12/06/22 History Simvastatin 40 mg PO HS 12/06/22 12/06/22 History Sodium Bicarbonate Tab 1,300 mg PO BID 12/06/22 12/06/22 History Tacrolimus [Prograf] 2 mg PO HS 12/06/22 12/06/22 History Tacrolimus [Prograf] 3 mg PO DAILY 12/06/22 12/06/22 History Tamsulosin HCl [Flomax] 0.4 mg PO HS 12/06/22 12/06/22 History Turmeric Root Extract [Turmeric] 500 mg PO DAILY 12/06/22 12/06/22 History Ubidecarenone [Coenzyme Q10] 200 mg PO DAILY 12/06/22 12/06/22 History hydroCHLOROthiazide 12.5 mg PO DAILY 12/06/22 12/06/22 History mycophenolate mofetiL [Cellcept] 1,000 mg PO BID 12/06/22 12/06/22 History Allergies Allergy/AdvReac Type Severity Reaction Status Date / Time allopurinol AdvReac Unknown Verified 12/06/22 13:15 Physical Exam Vitals: Vital Signs Temp Pulse Pulse Resp BP BP Pulse Ox 12/06/22 14:43 101.5 F H 12/06/22 13:28 93 18 131/78 97 12/06/22 13:05 100.5 F H 12/06/22 07:39 98.5 F 100 16 115/70 96 12/06/22 00:45 98 18 117/72 96 12/05/22 23:51 98.6 F 100 18 131/71 99 12/05/22 19:59 99.7 F H 110 H 16 113/69 98 Intake and Output 12/06/22 12/06/22 12/06/22 06:59 14:59 22:59 Other: Voiding Method Toilet Urinal # Voids 1 Weight 74.389 kg Results CBC & Chem 7: 12/06/22 09:55 12/06/22 09:55 Labs: Abnormal Lab Results - Last 24 Hours (Table) 12/05/22 12/05/22 12/05/22 Range/Units 22:00 22:00 22:01 WBC 11.6 H (3.8-10.6) k/uL RBC 4.26 L (4.30-5.90) m/uL Hgb 12.6 L (13.0-17.5) gm/dL Hct 37.2 L (39.0-53.0) % Neutrophils # 9.1 H (1.3-7.7) k/uL Lymphocytes # (1.0-4.8) k/uL Sodium 132 L (137-145) mmol/L Chloride 94 L (98-107) mmol/L BUN 57 H (9-20) mg/dL Creatinine 2.41 H (0.66-1.25) mg/dL Glucose (74-99) mg/dL POC Glucose (mg/dL) (70-110) mg/dL Total Bilirubin 1.4 H (0.2-1.3) mg/dL Alkaline Phosphatase 146 H (38-126) U/L Urine Protein 1+ H (Negative) Urine Ketones Trace H (Negative) Urine Blood Moderate H (Negative) Ur Leukocyte Esterase Small H (Negative) Urine RBC 58 H (0-5) /hpf Urine WBC 31 H (0-5) /hpf Hyaline Casts 23 H (0-2) /lpf 12/06/22 12/06/22 12/06/22 Range/Units 07:39 09:55 09:55 WBC (3.8-10.6) k/uL RBC 3.77 L (4.30-5.90) m/uL Hgb 11.3 L (13.0-17.5) gm/dL Hct 34.3 L (39.0-53.0) % Neutrophils # (1.3-7.7) k/uL Lymphocytes # 0.6 L (1.0-4.8) k/uL Sodium 130 L (137-145) mmol/L Chloride 96 L (98-107) mmol/L BUN 52 H (9-20) mg/dL Creatinine 1.83 H (0.66-1.25) mg/dL Glucose 236 H (74-99) mg/dL POC Glucose (mg/dL) 139 H (70-110) mg/dL Total Bilirubin (0.2-1.3) mg/dL Alkaline Phosphatase (38-126) U/L Urine Protein (Negative) Urine Ketones (Negative) Urine Blood (Negative) Ur Leukocyte Esterase (Negative) Urine RBC (0-5) /hpf Urine WBC (0-5) /hpf Hyaline Casts (0-2) /lpf 12/06/22 Range/Units 11:02 WBC (3.8-10.6) k/uL RBC (4.30-5.90) m/uL Hgb (13.0-17.5) gm/dL Hct (39.0-53.0) % Neutrophils # (1.3-7.7) k/uL Lymphocytes # (1.0-4.8) k/uL Sodium (137-145) mmol/L Chloride (98-107) mmol/L BUN (9-20) mg/dL Creatinine (0.66-1.25) mg/dL Glucose (74-99) mg/dL POC Glucose (mg/dL) 260 H (70-110) mg/dL Total Bilirubin (0.2-1.3) mg/dL Alkaline Phosphatase (38-126) U/L Urine Protein (Negative) Urine Ketones (Negative) Urine Blood (Negative) Ur Leukocyte Esterase (Negative) Urine RBC (0-5) /hpf Urine WBC (0-5) /hpf Hyaline Casts (0-2) /lpf Assessment and Plan Plan: 1-Patient was in the hospital with sepsis in this patient did have fever tachycardia elevated white count source 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
[2022-12-06] MEDS ORDERED: SODIUM BICARBONATE TAB 650 MG TAB PO SCH (21:00)
[2022-12-06] MEDS: INSULIN DETEMIR (LEVEMIR) 100 UNIT/ML SYR SQ SCH (22:07)
[2022-12-07] MEDS: SODIUM CHLORIDE 0.9% 1,000 ML IV SCH ×2 (03:58→17:07)
[2022-12-07 07:32] LABS: Glucose,Whole Blood 133 mg/dL (70-110)
[2022-12-07] MEDS: INSULIN ASPART (NovoLOG) 100 UNIT/ML VIAL SQ SCH ×5 (07:53→21:17)
[2022-12-07] MEDS: SODIUM BICARBONATE TAB 650 MG TAB PO SCH ×2 (08:59→21:16)
[2022-12-07] MEDS: LEVOTHYROXINE 88 MCG TAB PO SCH (08:59)
[2022-12-07] MEDS: TACROLIMUS 1 MG CAP PO SCH ×2 (08:59→21:16)
[2022-12-07] MEDS ORDERED: TACROLIMUS 1 MG CAP PO SCH (09:00)
[2022-12-07] MEDS ORDERED: TAMSULOSIN 0.4 MG CAP.ER.24H PO SCH (09:00)
[2022-12-07] MEDS ORDERED: LEVOTHYROXINE 88 MCG TAB PO SCH (09:00)
[2022-12-07] MEDS: ISOSORBIDE MONONITRATE ER 30 MG TAB.ER.24H PO SCH (09:57)
[2022-12-07] MEDS: ASPIRIN 81 MG PO SCH (09:57)
[2022-12-07] MEDS: METOPROLOL SUCCINATE (ER) 25 MG TAB.ER.24H PO SCH ×2 (09:57→17:05)
--- NOTE | 2022-12-07 10:52 | P.PN ---
Subjective Progress Note Date: 12/07/22 HISTORY OF PRESENT ILLNESS: This is a 67-year-old male who lives in [place] and does not follow with a pattern duplicator regularly. He is currently in [place] until the middle of December vis [place] [place]. The patient has a history of hypertension, hyperlipidemia, diabetes, and kidney transplant in 2015. the patient is admitted to the hospital secondary to sepsis. 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 Patient has been febrile overnight with a temperature of 101.5F. He is on IV antibiotics. Cardiology was consulted as the patient has been complaining of shortness of breath and chest pain for the past 2-3 months. He states he has been unable to get this evaluated down in [place] due to weight times to see a physician. patient currently denies any chest pain or pressure this morning. He currently denies any shortness of br eath. Vital signs are stable. EKG obtained revealing biphasic T-wave in V2 and T-wave inversions in Lead 1 and V3-V6. PHYSICAL EXAM: VITAL SIGNS: Reviewed. GENERAL: Well-developed in no acute distress. NECK: Supple. No JVD or thyromegaly LUNGS: Respirations even and unlabored. Lungs essentially clear to auscultation bilaterally. HEART: Regular rate and rhythm. S1 and S2 heard. EXTREMITIES: Normal range of motion. No clubbing or cyanosis. Peripheral pulses intact. 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 ACS ruled out Abnormal EKG Hypertension Hyperlipidemia Diabetes History of kidney transplant 2014 PLAN: Add aspirin, metoprolol, and imdur 2D echo ordered. Await results. Patient will require further testing to rule out CAD after his acute infection resolves Patient to follow up with Dr. De Leon next week Further recommendations pending patient course Nurse practitioner note has been reviewed by physician. Signing provider agrees with the documented findings, assessment, and plan of care. Objective - Vital Signs Vital signs: Vital Signs Temp 99.2 F 12/07/22 08:00 Pulse 80 12/07/22 08:00 Resp 16 12/07/22 08:00 BP 101/64 12/07/22 08:00 Pulse Ox 96 12/07/22 08:00 FiO2 Intake & Output 12/06/22 12/07/22 12/07/22 18:59 06:59 18:59 Intake Total 950 900 240 Balance 950 900 240 Intake: Intake, IV Titration 950 900 Amount Sodium Chloride 0.9% 1, 900 900 000 ml @ 75 mls/hr IV . [id number] EMILIANO Rx#:[id number] cefTRIAXone 2 gm In 50 Sodium Chloride 0.9% 50 ml @ 100 mls/hr IVPB Q24HR EMILIANO Rx#:[id number] Oral 240 Other: Voiding Method Toilet Toilet Urinal Urinal # Voids 4 - Labs CBC & Chem 7: 12/06/22 09:55 12/06/22 09:55 Labs: Abnormal Lab Results - Last 24 Hours (Table) 12/06/22 12/06/22 12/06/22 Range/Units 09:55 09:55 11:02 RBC 3.77 L (4.30-5.90) m/uL Hgb 11.3 L (13.0-17.5) gm/dL Hct 34.3 L (39.0-53.0) % Lymphocytes # 0.6 L (1.0-4.8) k/uL Sodium 130 L (137-145) mmol/L Chloride 96 L (98-107) mmol/L BUN 52 H (9-20) mg/dL Creatinine 1.83 H (0.66-1.25) mg/dL Glucose 236 H (74-99) mg/dL POC Glucose (mg/dL) 260 H (70-110) mg/dL 12/06/22 12/06/22 12/07/22 Range/Units 16:46 19:47 07:30 RBC (4.30-5.90) m/uL Hgb (13.0-17.5) gm/dL Hct (39.0-53.0) % Lymphocytes # (1.0-4.8) k/uL Sodium (137-145) mmol/L Chloride (98-107) mmol/L BUN (9-20) mg/dL Creatinine (0.66-1.25) mg/dL Glucose (74-99) mg/dL POC Glucose (mg/dL) 201 H 185 H 133 H (70-110) mg/dL
[2022-12-07 11:02] LABS: African American GFR (CKD) 71 (>60 ml/min/1.73 sqM); Anion Gap 9 mmol/L; Blood Urea Nitrogen 36 mg/dL (9-20); Calcium 8.8 mg/dL (8.4-10.2); Carbon Dioxide 22 mmol/L (22-30); Chloride 100 mmol/L (98-107); Glucose 210 mg/dL (74-99); Non-African American GFR(CKD) 62 (>60 ml/min/1.73 sqM); Sodium 131 mmol/L (137-145)
[2022-12-07 11:06] LABS: Potassium 4.1 mmol/L (3.5-5.1)
[2022-12-07 11:21] LABS: Glucose,Whole Blood 225 mg/dL (70-110)
--- NOTE | 2022-12-07 13:10 | CA ---
Transthoracic Echo Report Name: Mauricio Byrne Age: 67 Gender: M : 1955 Exam Date: 12/07/2022 08:02 Exam Location: [facility] Ht (in): 70 Wt (lb): 164 Ordering Physician: Olivier De Leon MD ([id number]) Attending/Referring Phys: Electric Appliance Installer Krystle Sanders RDCS Procedure CPT: Indications: Chest Pain Cardiac Hx: Technical Quality: Fair Contrast 1: Total Dose (mL): Contrast 2: Total Dose (mL): MEASUREMENTS (Male / Female) Normal Values 2D ECHO LV Diastolic Diameter PLAX 4.1 cm 4.2 - 5.9 / 3.9 - 5.3 cm LV Systolic Diameter PLAX 2.9 cm IVS Diastolic Thickness 1.1 cm 0.6 - 1.0 / 0.6 - 0.9 cm LVPW Diastolic Thickness 1.2 cm 0.6 - 1.0 / 0.6 - 0.9 cm LV Relative Wall Thickness 0.6 RV Internal Dim ED PLAX 3.4 cm LA Volume 52.5 cm??? 18 - 58 / 22 - 52 cm??? M-MODE Aortic Root Diameter MM 3.1 cm LA Systolic Diameter MM 3.9 cm LA Ao Ratio MM 1.3 AV Cusp Separation MM 1.9 cm DOPPLER AV Peak Velocity 181.2 cm/s AV Peak Gradient 13.1 mmHg AV Mean Velocity 119.9 cm/s AV Mean Gradient 6.7 mmHg AV Velocity Time Integral 32.8 cm LVOT Peak Velocity 107.0 cm/s LVOT Peak Gradient 4.6 mmHg MV Area PHT 3.9 cm??? Mitral E Point Velocity 93.6 cm/s Mitral A Point Velocity 102.1 cm/s Mitral E to A Ratio 0.9 MV Deceleration Time 195.5 ms MV E' Velocity 10.0 cm/s Mitral E to MV E' Ratio 9.4 TR Peak Velocity 255.0 cm/s TR Peak Gradient 26.0 mmHg Right Ventricular Systolic Press 29.8 mmHg FINDINGS Left Ventricle Mildly increased left ventricular wall thickness. Left ventricular cavity size normal. Normal left ventricular systolic function with no obvious regional wall motion abnormalities. Left ventricular ejection fraction is estimated at 55-60 %. Right Ventricle Normal right ventricular size and function. Right ventricular systolic pressure within normal limits. Right Atrium Normal right atrial size. Left Atrium Mildly increased left atrial area. Mitral Valve Structurally normal mitral valve. No mitral stenosis. Mild mitral regurgitation. Aortic Valve Trileaflet aortic valve. No aortic valve stenosis or regurgitation. Tricuspid Valve Structurally normal tricuspid valve. Mild tricuspid regurgitation. Pulmonic Valve Trace pulmonic regurgitation. Pericardium No pericardial effusion. Aorta Normal size aortic root and proximal ascending aorta. CONCLUSIONS Mildly increased left ventricular wall thickness Left ventricular ejection fraction 55-60% Mild mitral regurgitation RVSP 30 Previewed by: Dr. Jorge Luis Umanzor DO (Electronically Signed) Final Date: 07 December 2022 13:09
--- NOTE | 2022-12-07 13:10 | P.PN ---
Subjective Patient is seen for follow-up for acute kidney injury associated with underlying UTI and sepsis with volume depletion. Patient has a history of donor transplant about 15 years ago and follows in [place]. Patient is here in [place] for vacation and was admitted to the hospital with complaints of abdominal discomfort, fatigue. He also had fever and is currently maintained on IV fluids and IV antibiotics. Serum creatinine decreased to 1.2 from 2.4 on initial admission. No urinary symptoms Ultrasound showed some fullness of the transplant kidney. Objective - Vital Signs Vital signs: Vital Signs Temp 99.2 F 12/07/22 08:00 Pulse 80 12/07/22 08:00 Resp 16 12/07/22 08:00 BP 101/64 12/07/22 08:00 Pulse Ox 96 12/07/22 08:00 FiO2 Intake & Output 12/06/22 12/07/22 12/07/22 18:59 06:59 18:59 Intake Total 950 900 240 Balance 950 900 240 Intake: Intake, IV Titration 950 900 Amount Sodium Chloride 0.9% 1, 900 900 000 ml @ 75 mls/hr IV . [id number] EMILIANO Rx#:[id number] cefTRIAXone 2 gm In 50 Sodium Chloride 0.9% 50 ml @ 100 mls/hr IVPB Q24HR EMILIANO Rx#:[id number] Oral 240 Other: Voiding Method Toilet Toilet Toilet Urinal Urinal Urinal # Voids 4 - Exam Patient is awake, comfortable, no acute distress Examination of the heart S1 and S2 Examination of the lungs bilateral breath sounds are heard Abdomen is soft nontender Examination of lower extremities shows no edema HEMODIALYSIS LAB TECHNICIAN exam grossly intact - Labs CBC & Chem 7: 12/06/22 09:55 12/07/22 10:28 Labs: Abnormal Lab Results - Last 24 Hours (Table) 12/06/22 12/06/22 12/07/22 Range/Units 16:46 19:47 07:30 Sodium (137-145) mmol/L BUN (9-20) mg/dL Glucose (74-99) mg/dL POC Glucose (mg/dL) 201 H 185 H 133 H (70-110) mg/dL 12/07/22 12/07/22 Range/Units 10:28 11:18 Sodium 131 L (137-145) mmol/L BUN 36 H (9-20) mg/dL Glucose 210 H (74-99) mg/dL POC Glucose (mg/dL) 225 H (70-110) mg/dL Assessment and Plan Assessment: 1. Acute kidney injury associated with underlying infection, currently nonoliguric. Rule out urine retention. Blood pressure is also on the lower side. UA shows 1+ protein and moderate blood WBCs 31 and RBCs 58. Ultrasound of the transplant kidney shows mild dilatation of the collecting system. Bladder is not distended. 2. 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 3. Status post donor renal transplant about 15 years ago for IgA nephropathy maintained on tacrolimus and CellCept. 4. Pyuria rule out UTI 5. Dyspnea on exertion with no previously diagnosed coronary artery disease or pulmonary disease Plan: Continue with IV fluids Continue with IV antibiotics Check post void bladder scan Follow-up and urine cultures Continue with current immunosuppression
--- NOTE | 2022-12-07 13:31 | P.PN ---
Subjective Progress Note Date: 12/07/22 patient is 67-year-old gentleman with past medical history significant for renal transplant, insulin-dependent diabetes mellitus presented to the ER because of decreased urination. Patient received renal transplant about 15 years ago. For the last couple of days patient has been experiencing decreased urination. Patient also noticing painful urination and pain in the suprapubic area. Patient also noticed that his urine was darker in color, denied any blood in urine. There was no complain of increased frequency of micturition. No complaint of fever or chills. Patient denied any nausea, vomiting or abdominal pain. Patient also has been noticing episodes of chest pain. Chest pain is Central in location, brought on by exertion, no relieving factors associated, pain is nonradiating. Patient complaining of shortness of breath on exertion as well. Denies any swelling of feet. Because of these complaints patient came to the ER of [facility]. Initial lab work done in the ER showed white count 11.6, hemoglobin 12.6, platelet count 256, sodium 132 Potassium 4.2, BUN57, creatinine 2.41 Patient was admitted to the medicine service for further evaluation and treatment 12/07. Patient seen and examined. States fevers have improved, denies any chills. Denies any shortness of breath at rest or exertion REVIEW OF SYSTEMS: CONSTITUTIONAL: No fever, no malaise,. CARDIOVASCULAR: No chest pain, no palpitations, no syncope. PULMONARY: No shortness of breath GASTROINTESTINAL: No diarrhea, no nausea, no vomiting, no abdominal pain. NEUROLOGICAL: No headaches, no weakness, PHYSICAL EXAMINATION: GENERAL: The patient is alert and oriented x3, not in any acute distress. Well developed, well nourished. HEENT: Pupils are round and equally reacting to light. EOMI. No scleral icterus. No conjunctival pallor. Normocephalic, atraumatic. No pharyngeal erythema. No thyromegaly. CARDIOVASCULAR: S1 and S2 present. No murmurs, rubs, or gallops. PULMONARY: Chest is clear to auscultation, no wheezing or crackles. ABDOMEN: Soft, nontender, nondistended, normoactive bowel sounds. No palpable organomegaly. MUSCULOSKELETAL: No joint swelling or deformity. EXTREMITIES: No cyanosis, clubbing, or pedal edema. NEUROLOGICAL: Gross neurological examination did not reveal any focal deficits. SKIN: No rashes. Assessment and plan Monitor vital signs Monitor CBC Monitor CMP Follow-up on urine cultures Continue IV Rocephin Continue aspirin, metoprolol, Imdur Follow-up on 2-D echo Follow-up on nephrology recommendations Follow-up on ID recommendations Cardiology following Objective - Vital Signs Vital signs: Vital Signs Temp 99.2 F 12/07/22 08:00 Pulse 80 12/07/22 08:00 Resp 16 12/07/22 08:00 BP 101/64 12/07/22 08:00 Pulse Ox 96 12/07/22 08:00 FiO2 Intake & Output 12/06/22 12/07/22 12/07/22 18:59 06:59 18:59 Intake Total 950 900 240 Balance 950 900 240 Intake: Intake, IV Titration 950 900 Amount Sodium Chloride 0.9% 1, 900 900 000 ml @ 75 mls/hr IV . [id number] [facility] Rx#:[id number] cefTRIAXone 2 gm In 50 Sodium Chloride 0.9% 50 ml @ 100 mls/hr IVPB Q24HR [facility] Rx#:[id number] Oral 240 Other: Voiding Method Toilet Toilet Toilet Urinal Urinal Urinal # Voids 4 - Labs CBC & Chem 7: 12/06/22 09:55 12/07/22 10:28 Labs: Abnormal Lab Results - Last 24 Hours (Table) 12/06/22 12/06/22 12/07/22 Range/Units 16:46 19:47 07:30 Sodium (137-145) mmol/L BUN (9-20) mg/dL Glucose (74-99) mg/dL POC Glucose (mg/dL) 201 H 185 H 133 H (70-110) mg/dL 12/07/22 12/07/22 Range/Units 10:28 11:18 Sodium 131 L (137-145) mmol/L BUN 36 H (9-20) mg/dL Glucose 210 H (74-99) mg/dL POC Glucose (mg/dL) 225 H (70-110) mg/dL
[2022-12-07 15:31] LABS: Glucose,Whole Blood 206 mg/dL (70-110)
[2022-12-07] MEDS ORDERED: INSULIN ASPART (NovoLOG) 100 UNIT/ML VIAL SQ ONE (16:03)
[2022-12-07 17:39] LABS: Glucose,Whole Blood 129 mg/dL (70-110)
[2022-12-07] MEDS: ATORVASTATIN 20 MG TAB PO SCH (21:16)
[2022-12-07] MEDS: TAMSULOSIN 0.4 MG CAP.ER.24H PO SCH (21:16)
[2022-12-07] MEDS: INSULIN DETEMIR (LEVEMIR) 100 UNIT/ML SYR SQ SCH (21:16)
--- NOTE | 2022-12-07 22:43 | P.PN ---
Subjective Progress Note Date: 12/07/22 Principal diagnosis: Transplant Nephritis Patient is a 67-year-old male with a past medical history significant for renal transplant diabetes mellitus presented to hospital with urinary symptoms also noticed to be febrile. On today's evaluation that is 12/07/2022 the patient overall feels better and has improved no chest pain no shortness of breath or cough no abdominal pain no diarrhea Objective - Vital Signs Vital signs: Vital Signs Temp 99.2 F 12/07/22 08:00 Pulse 80 12/07/22 08:00 Resp 16 12/07/22 08:00 BP 101/64 12/07/22 08:00 Pulse Ox 96 12/07/22 08:00 FiO2 Intake & Output 12/06/22 12/07/22 12/07/22 18:59 06:59 18:59 Intake Total 950 900 240 Balance 950 900 240 Intake: Intake, IV Titration 950 900 Amount Sodium Chloride 0.9% 1, 900 900 000 ml @ 75 mls/hr IV . [id number] [facility] Rx#:[id number] cefTRIAXone 2 gm In 50 Sodium Chloride 0.9% 50 ml @ 100 mls/hr IVPB Q24HR [facility] Rx#:[id number] Oral 240 Other: Voiding Method Toilet Toilet Toilet Urinal Urinal Urinal # Voids 4 - Labs CBC & Chem 7: 12/06/22 09:55 12/07/22 10:28 Labs: Abnormal Lab Results - Last 24 Hours (Table) 12/06/22 12/06/22 12/06/22 Range/Units 09:55 09:55 16:46 RBC 3.77 L (4.30-5.90) m/uL Hgb 11.3 L (13.0-17.5) gm/dL Hct 34.3 L (39.0-53.0) % Lymphocytes # 0.6 L (1.0-4.8) k/uL Sodium 130 L (137-145) mmol/L Chloride 96 L (98-107) mmol/L BUN 52 H (9-20) mg/dL Creatinine 1.83 H (0.66-1.25) mg/dL Glucose 236 H (74-99) mg/dL POC Glucose (mg/dL) 201 H (70-110) mg/dL 12/06/22 12/07/22 12/07/22 Range/Units 19:47 07:30 10:28 RBC (4.30-5.90) m/uL Hgb (13.0-17.5) gm/dL Hct (39.0-53.0) % Lymphocytes # (1.0-4.8) k/uL Sodium 131 L (137-145) mmol/L Chloride (98-107) mmol/L BUN 36 H (9-20) mg/dL Creatinine (0.66-1.25) mg/dL Glucose 210 H (74-99) mg/dL POC Glucose (mg/dL) 185 H 133 H (70-110) mg/dL Assessment and Plan (1) UTI (urinary tract infection) Current Visit: Yes Status: Acute Code(s): N39.0 - URINARY TRACT INFECTION, SITE NOT SPECIFIED SNOMED Code(s): 20028394 Plan: 1-Patient was in the hospital with sepsis in this patient did have fever tachycardia elevated white count source 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
[2022-12-08] MEDS: SODIUM CHLORIDE 0.9% 1,000 ML IV SCH ×2 (04:16→19:00)
[2022-12-08 07:02] LABS: Glucose,Whole Blood 78 mg/dL (70-110)
[2022-12-08 08:04] VITALS: RESP 18
[2022-12-08 08:46] LABS: Basophils # (A) 0.01 X 10*3/uL (0.00-0.10); Basophils % (A) 0.2 %; Eosinophils # (A) 0.09 X 10*3/uL (0.04-0.35); Eosinophils % (A) 1.8 %; HGB 9.6 d/dL (12.0-15.0); Lymphocytes # (A) 0.75 X 10*3/uL (0.90-5.00); Lymphocytes % (A) 14.9 %; MCH 29.1 pg (27.0-32.0); MCHC 33.1 d/dL (32.0-37.0); MCV 87.9 FL (80.0-97.0); Mean Platelet Volume 8.8 FL (9.5-12.2); Monocytes % (A) 9.9 %; NRBC Per 100 WBC 0 X 10*3/uL (0.00-0.01); Neutrophils # (A) 3.64 X 10*3/uL (1.80-7.70); Neutrophils % (A) 72.4 %; Platelet Count 217 X 10*3/uL (140-440); RDW 12.9 % (11.5-14.5); WBC 5.03 X 10*3/uL (4.50-10.00)
[2022-12-08] MEDS: INSULIN ASPART (NovoLOG) 100 UNIT/ML VIAL SQ SCH ×4 (08:47→20:30)
[2022-12-08] MEDS: ISOSORBIDE MONONITRATE ER 30 MG TAB.ER.24H PO SCH (08:50)
[2022-12-08] MEDS: SODIUM BICARBONATE TAB 650 MG TAB PO SCH ×2 (08:50→20:31)
[2022-12-08] MEDS: LEVOTHYROXINE 88 MCG TAB PO SCH (08:50)
[2022-12-08] MEDS: TACROLIMUS 1 MG CAP PO SCH ×2 (08:51→20:31)
[2022-12-08] MEDS: ASPIRIN 81 MG PO SCH (08:55)
--- NOTE | 2022-12-08 08:56 | P.PN ---
Subjective Progress Note Date: 12/08/22 HISTORY OF PRESENT ILLNESS: This is a 67-year-old male who lives in [place] and does not follow with a ict business analyst regularly. He is currently in [place] until the middle of December vis [place]. The patient has a history of hypertension, hyperlipidemia, diabetes, and kidney transplant in 2014. the patient is admitted to the hospital secondary to sepsis. 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 Patient has been febrile overnight with a temperature of 101.5F. He is on IV antibiotics. Cardiology was consulted as the patient has been complaining of shortness of breath and chest pain for the past 2-3 months. He states he has been unable to get this evaluated down in [place] due to weight times to see a physician. patient currently denies any chest pain or pressure this morning. He currently denies any shortness of br eath. Vital signs are stable. EKG obtained revealing biphasic T-wave in V2 and T-wave inversions in Lead 1 and V3-V6. 12/08/2022 Patient examined this morning at the bedside. He is eating breakfast. Patient denies any shortness of breath. He reports having an episode of chest discomfort this morning that only lasted for a short period of time and went away on its own. He denies any chest pain at the time of examination. Patient has been afebrile. Echocardiogram completed revealing ejection fraction 55-60% with no wall motion abnormalities noted and mild mitral regurgitation. PHYSICAL EXAM: VITAL SIGNS: Reviewed. GENERAL: Well-developed in no acute distress. NECK: Supple. No JVD or thyromegaly LUNGS: Respirations even and unlabored. Lungs essentially clear to auscultation bilaterally. HEART: Regular rate and rhythm. S1 and S2 heard. EXTREMITIES: Normal range of motion. No clubbing or cyanosis. Peripheral pulses intact. 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 ACS ruled out Abnormal EKG Hypertension Hyperlipidemia Diabetes History of kidney transplant 2014 PLAN: Continue aspirin, metoprolol, and imdur Patient will require further testing to rule out CAD after his acute infection resolves Patient to follow up with Dr. De Leon next week Further recommendations pending patient course Nurse practitioner note has been reviewed by physician. Signing provider agrees with the documented findings, assessment, and plan of care. Objective - Vital Signs Vital signs: Vital Signs Temp 98.8 F 12/08/22 07:37 Pulse 69 12/08/22 07:37 Resp 18 12/08/22 07:37 BP 118/71 12/08/22 07:37 Pulse Ox 96 12/08/22 07:37 FiO2 Intake & Output 12/07/22 12/08/22 12/08/22 18:59 06:59 18:59 Intake Total 831 1140 Output Total 150 Balance 831 1140 -150 Intake: Intake, IV Titration 900 Amount Sodium Chloride 0.9% 1, 900 000 ml @ 75 mls/hr IV . [id number] [facility] Rx#:[id number] Oral 831 240 Output: Urine 150 Other: Voiding Method Toilet Toilet Urinal Urinal # Voids 4 1 # Bowel Movements 1 - Labs CBC & Chem 7: 12/08/22 06:09 12/07/22 10:28 Labs: Abnormal Lab Results - Last 24 Hours (Table) 12/07/22 12/07/22 12/07/22 Range/Units 10:28 11:18 15:29 RBC (4.40-5.60) X 10*6/uL Hgb (12.0-15.0) d/dL Hct (39.6-50.0) % MPV (9.5-12.2) FL Lymphocytes # (0.90-5.00) X 10*3/uL Sodium 131 L (137-145) mmol/L BUN 36 H (9-20) mg/dL Glucose 210 H (74-99) mg/dL POC Glucose (mg/dL) 225 H 206 H (70-110) mg/dL 12/07/22 12/08/22 Range/Units 17:37 06:09 RBC 3.30 L (4.40-5.60) X 10*6/uL Hgb 9.6 L (12.0-15.0) d/dL Hct 29.0 L (39.6-50.0) % MPV 8.8 L (9.5-12.2) FL Lymphocytes # 0.75 L (0.90-5.00) X 10*3/uL Sodium (137-145) mmol/L BUN (9-20) mg/dL Glucose (74-99) mg/dL POC Glucose (mg/dL) 129 H (70-110) mg/dL
[2022-12-08 11:57] LABS: Glucose,Whole Blood 159 mg/dL (70-110)
--- NOTE | 2022-12-08 12:28 | P.PN ---
Subjective Progress Note Date: 12/08/22 patient is 67-year-old gentleman with past medical history significant for renal transplant, insulin-dependent diabetes mellitus presented to the ER because of decreased urination. Patient received renal transplant about 15 years ago. For the last couple of days patient has been experiencing decreased urination. Patient also noticing painful urination and pain in the suprapubic area. Patient also noticed that his urine was darker in color, denied any blood in urine. There was no complain of increased frequency of micturition. No complaint of fever or chills. Patient denied any nausea, vomiting or abdominal pain. Patient also has been noticing episodes of chest pain. Chest pain is Central in location, brought on by exertion, no relieving factors associated, pain is nonradiating. Patient complaining of shortness of breath on exertion as well. Denies any swelling of feet. Because of these complaints patient came to the ER of [facility]. Initial lab work done in the ER showed white count 11.6, hemoglobin 12.6, platelet count 256, sodium 132 Potassium 4.2, BUN57, creatinine 2.41 Patient was admitted to the medicine service for further evaluation and treatment 12/07. Patient seen and examined. States fevers have improved, denies any chills. Denies any shortness of breath at rest or exertion 12/08. Patient seen and examined. Ambulating in the room without any diffic ulty. REVIEW OF SYSTEMS: CONSTITUTIONAL: No fever, no malaise,. CARDIOVASCULAR: No chest pain, no palpitations, no syncope. PULMONARY: No shortness of breath GASTROINTESTINAL: No diarrhea, no nausea, no vomiting, no abdominal pain. NEUROLOGICAL: No headaches, no weakness, PHYSICAL EXAMINATION: GENERAL: The patient is alert and oriented x3, not in any acute distress. Well developed, well nourished. HEENT: Pupils are round and equally reacting to light. EOMI. No scleral icterus. No conjunctival pallor. Normocephalic, atraumatic. No pharyngeal erythema. No thyromegaly. CARDIOVASCULAR: S1 and S2 present. No murmurs, rubs, or gallops. PULMONARY: Chest is clear to auscultation, no wheezing or crackles. ABDOMEN: Soft, nontender, nondistended, normoactive bowel sounds. No palpable organomegaly. MUSCULOSKELETAL: No joint swelling or deformity. EXTREMITIES: No cyanosis, clubbing, or pedal edema. NEUROLOGICAL: Gross neurological examination did not reveal any focal deficits. SKIN: No rashes. Assessment and plan Monitor vital signs Monitor CBC Monitor CMP Follow-up on urine cultures Continue IV Rocephin Continue aspirin, metoprolol, Imdur Results of 2-D echo noted, ejection fraction 55-60% with no wall motion abnormalities noted and mild mitral regurgitation. Follow-up on nephrology recommendations Follow-up on ID recommendations Cardiology following Objective - Vital Signs Vital signs: Vital Signs Temp 98.8 F 12/08/22 07:37 Pulse 69 12/08/22 07:37 Resp 18 12/08/22 07:37 BP 118/71 12/08/22 07:37 Pulse Ox 96 12/08/22 07:37 FiO2 Intake & Output 12/07/22 12/08/22 12/08/22 18:59 06:59 18:59 Intake Total 831 1140 Output Total 150 Balance 831 1140 -150 Intake: Intake, IV Titration 900 Amount Sodium Chloride 0.9% 1, 900 000 ml @ 75 mls/hr IV . [id number] [facility] Rx#:[id number] Oral 831 240 Output: Urine 150 Other: Voiding Method Toilet Toilet Toilet Urinal Urinal Urinal # Voids 4 1 # Bowel Movements 1 - Labs CBC & Chem 7: 12/08/22 06:09 12/07/22 10:28 Labs: Abnormal Lab Results - Last 24 Hours (Table) 12/07/22 12/07/22 12/08/22 Range/Units 15:29 17:37 06:09 RBC 3.30 L (4.40-5.60) X 10*6/uL Hgb 9.6 L (12.0-15.0) d/dL Hct 29.0 L (39.6-50.0) % MPV 8.8 L (9.5-12.2) FL Lymphocytes # 0.75 L (0.90-5.00) X 10*3/uL POC Glucose (mg/dL) 206 H 129 H (70-110) mg/dL 12/08/22 Range/Units 11:55 RBC (4.40-5.60) X 10*6/uL Hgb (12.0-15.0) d/dL Hct (39.6-50.0) % MPV (9.5-12.2) FL Lymphocytes # (0.90-5.00) X 10*3/uL POC Glucose (mg/dL) 159 H (70-110) mg/dL Microbiology - Last 24 Hours (Table) 12/06/22 14:33 Urine Culture - Final Urine,Voided
[2022-12-08 13:52] LABS: Glucose,Whole Blood 223 mg/dL (70-110)
--- NOTE | 2022-12-08 14:00 | P.PN ---
Subjective Patient is seen for follow-up for acute kidney injury associated with underlying UTI and sepsis with volume depletion. Patient has a history of donor transplant about 15 years ago and follows in [place]. Patient is here in [place] for vacation and was admitted to the hospital with complaints of abdominal discomfort, fatigue. He also had fever and is currently maintained on IV fluids and IV antibiotics. Serum creatinine decreased to 1.2 from 2.4 on initial admission. No urinary symptoms Ultrasound showed some fullness of the transplant kidney. Objective - Vital Signs Vital signs: Vital Signs Temp 98.8 F 12/08/22 07:37 Pulse 69 12/08/22 07:37 Resp 18 12/08/22 07:37 BP 118/71 12/08/22 07:37 Pulse Ox 96 12/08/22 07:37 FiO2 Intake & Output 12/07/22 12/08/22 12/08/22 18:59 06:59 18:59 Intake Total 831 1140 Output Total 150 Balance 831 1140 -150 Intake: Intake, IV Titration 900 Amount Sodium Chloride 0.9% 1, 900 000 ml @ 75 mls/hr IV . [id number] [facility] Rx#:[id number] Oral 831 240 Output: Urine 150 Other: Voiding Method Toilet Toilet Toilet Urinal Urinal Urinal # Voids 4 1 # Bowel Movements 1 - Exam Patient is awake, comfortable, no acute distress Examination of the heart S1 and S2 Examination of the lungs bilateral breath sounds are heard Abdomen is soft nontender Examination of lower extremities shows no edema PERMANENT WAVER exam grossly intact - Labs CBC & Chem 7: 12/08/22 06:09 12/07/22 10:28 Labs: Abnormal Lab Results - Last 24 Hours (Table) 12/07/22 12/07/22 12/08/22 Range/Units 15:29 17:37 06:09 RBC 3.30 L (4.40-5.60) X 10*6/uL Hgb 9.6 L (12.0-15.0) d/dL Hct 29.0 L (39.6-50.0) % MPV 8.8 L (9.5-12.2) FL Lymphocytes # 0.75 L (0.90-5.00) X 10*3/uL POC Glucose (mg/dL) 206 H 129 H (70-110) mg/dL 12/08/22 12/08/22 Range/Units 11:55 13:51 RBC (4.40-5.60) X 10*6/uL Hgb (12.0-15.0) d/dL Hct (39.6-50.0) % MPV (9.5-12.2) FL Lymphocytes # (0.90-5.00) X 10*3/uL POC Glucose (mg/dL) 159 H 223 H (70-110) mg/dL Microbiology - Last 24 Hours (Table) 12/06/22 14:33 Urine Culture - Final Urine,Voided Assessment and Plan Assessment: 1. Acute kidney injury associated with underlying infection, currently nonoliguric. Rule out urine retention. Blood pressure is also on the lower side. UA shows 1+ protein and moderate blood WBCs 31 and RBCs 58. Ultrasound of the transplant kidney shows mild dilatation of the collecting system. Bladder is not distended. 2. 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 3. 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 4. Pyuria rule out UTI. Urine culture may have been sent after initiation of antibiotics. Urine culture shows no growth. 5. Dyspnea on exertion with no previously diagnosed coronary artery disease or pulmonary disease Plan: Continue with IV fluids. Decrease the rate Continue with IV antibiotics Check post void bladder scan Follow-up on labs from today Continue with current immunosuppression
[2022-12-08] MEDS: METOPROLOL SUCCINATE (ER) 25 MG TAB.ER.24H PO SCH (16:30)
[2022-12-08 17:22] LABS: Glucose,Whole Blood 168 mg/dL (70-110)
[2022-12-08 18:23] LABS: ALT 28 U/L (10-49); AST 42 U/L (14-35); Albumin 3.1 d/dL (3.8-4.9); Albumin/Globulin Ratio 1.29 Ratio (1.60-3.17); Alkaline Phosphatase 216 U/L (41-126); BUN/Creat Ratio 21.36 Ratio (12.00-20.00); Blood Urea Nitrogen 23.5 mg/dL (9.0-27.0); Calcium 9.1 mg/dL (8.7-10.3); Carbon Dioxide 21.4 mmol/L (21.6-31.8); Chloride 102 mmol/L (96-109); Globulin 2.4 d/dL (1.6-3.3); Glucose 71 mg/dL (70-110); Potassium 4.5 mmol/L (3.5-5.5); Sodium 134 mmol/L (135-145); Total Bilirubin 0.5 mg/dL (0.3-1.2); Total Protein 5.5 d/dL (6.2-8.2)
[2022-12-08 20:07] LABS: Glucose,Whole Blood 225 mg/dL (70-110)
[2022-12-08] MEDS: INSULIN DETEMIR (LEVEMIR) 100 UNIT/ML SYR SQ SCH ×2 (20:30→20:35)
[2022-12-08] MEDS: FAMOTIDINE 20 MG TAB PO PRN (20:31)
[2022-12-08] MEDS: TAMSULOSIN 0.4 MG CAP.ER.24H PO SCH (20:31)
[2022-12-08] MEDS: ATORVASTATIN 20 MG TAB PO SCH (20:32)
[2022-12-09] MEDS ORDERED: AMINOPHYLLINE 500 MG/20 ML VIAL IV PRN (06:00)
[2022-12-09] MEDS ORDERED: CAFFEINE CITRATE 60 MG/3 ML VIAL IV PRN (06:00)
[2022-12-09] MEDS ORDERED: REGADENOSON 0.4 MG/5 ML SYRINGE IV PRN (06:00)
[2022-12-09 06:50] LABS: Basophils % (A) 0 %; Eosinophils # (A) 0.1 k/uL (0-0.7); Eosinophils % (A) 3 %; HGB 10.3 gm/dL (13.0-17.5); Lymphocytes # (A) 0.9 k/uL (1.0-4.8); Lymphocytes % (A) 25 %; MCH 29.6 pg (25.0-35.0); MCHC 33.1 g/dL (31.0-37.0); MCV 89.7 fL (80.0-100.0); Mean Platelet Volume 7.2; Monocytes # (A) 0.3 k/uL (0-1.0); Monocytes % (A) 9 %; Neutrophils # (A) 2.1 k/uL (1.3-7.7); Neutrophils % (A) 61 %; Platelet Count 236 k/uL (150-450); RBC 3.46 m/uL (4.30-5.90); WBC 3.5 k/uL (3.8-10.6)
[2022-12-09 07:20] LABS: ALT 34 U/L (4-49); AST 44 U/L (17-59); African American GFR (CKD) 87 (>60 ml/min/1.73 sqM); Albumin 2.9 g/dL (3.5-5.0); Albumin/Globulin Ratio 1.1; Alkaline Phosphatase 204 U/L (38-126); Anion Gap 8 mmol/L; Blood Urea Nitrogen 18 mg/dL (9-20); Calcium 8.6 mg/dL (8.4-10.2); Carbon Dioxide 21 mmol/L (22-30); Chloride 103 mmol/L (98-107); Globulin 2.7 g/dL; Glucose 152 mg/dL (74-99); Non-African American GFR(CKD) 75 (>60 ml/min/1.73 sqM); Potassium 5.1 mmol/L (3.5-5.1); Sodium 132 mmol/L (137-145); Total Bilirubin 0.6 mg/dL (0.2-1.3); Total Protein 5.6 g/dL (6.3-8.2)
[2022-12-09] MEDS: TACROLIMUS 1 MG CAP PO SCH (07:45)
--- NOTE | 2022-12-09 08:03 | P.PN ---
Subjective Patient is seen in follow-up for acute allograft dysfunction. Receiving IV fluids. Denies any dysuria or hematuria. Oral intake is good. Vital signs are stable. General: No acute distress. HEENT: Head exam is unremarkable. LUNGS: No audible rhonchi or wheezes. HEART: Rate and Rhythm are regular. ABDOMEN: Nontender. EXTREMITITES: No edema. Objective - Vital Signs Vital signs: Vital Signs Temp 99.2 F 12/09/22 02:27 Pulse 63 12/09/22 02:27 Resp 18 12/09/22 02:27 BP 101/57 12/09/22 02:27 Pulse Ox 96 12/09/22 02:27 FiO2 Intake & Output 12/08/22 12/09/22 12/09/22 18:59 06:59 18:59 Intake Total 900 Output Total 150 700 200 Balance 750 -700 -200 Intake: Intake, IV Titration 900 Amount Sodium Chloride 0.9% 1, 900 000 ml @ 50 mls/hr IV . Q20H [facility] Rx#:[id number] Output: Urine 150 700 200 Other: Voiding Method Toilet Toilet Urinal Urinal # Voids 1 - Labs CBC & Chem 7: 12/09/22 05:57 12/09/22 05:57 Labs: Abnormal Lab Results - Last 24 Hours (Table) 12/08/22 12/08/22 12/08/22 Range/Units 06:09 06:09 11:55 WBC (3.8-10.6) k/uL RBC 3.30 L (4.40-5.60) X 10*6/uL Hgb 9.6 L (12.0-15.0) d/dL Hct 29.0 L (39.6-50.0) % MPV 8.8 L (9.5-12.2) FL Lymphocytes # 0.75 L (0.90-5.00) X 10*3/uL Sodium 134 L (135-145) mmol/L Carbon Dioxide 21.4 L (21.6-31.8) mmol/L BUN/Creatinine Ratio 21.36 H (12.00-20.00) Ratio Glucose (74-99) mg/dL POC Glucose (mg/dL) 159 H (70-110) mg/dL AST 42 H (14-35) U/L Alkaline Phosphatase 216 H (41-126) U/L Total Protein 5.5 L (6.2-8.2) d/dL Albumin 3.1 L (3.8-4.9) d/dL Albumin/Globulin Ratio 1.29 L (1.60-3.17) Ratio 12/08/22 12/08/22 12/08/22 Range/Units 13:51 17:20 20:03 WBC (3.8-10.6) k/uL RBC (4.40-5.60) X 10*6/uL Hgb (12.0-15.0) d/dL Hct (39.6-50.0) % MPV (9.5-12.2) FL Lymphocytes # (0.90-5.00) X 10*3/uL Sodium (135-145) mmol/L Carbon Dioxide (21.6-31.8) mmol/L BUN/Creatinine Ratio (12.00-20.00) Ratio Glucose (74-99) mg/dL POC Glucose (mg/dL) 223 H 168 H 225 H (70-110) mg/dL AST (14-35) U/L Alkaline Phosphatase (41-126) U/L Total Protein (6.2-8.2) d/dL Albumin (3.8-4.9) d/dL Albumin/Globulin Ratio (1.60-3.17) Ratio 12/09/22 12/09/22 Range/Units 05:57 05:57 WBC 3.5 L (3.8-10.6) k/uL RBC 3.46 L (4.40-5.60) X 10*6/uL Hgb 10.3 L (12.0-15.0) d/dL Hct 31.0 L (39.6-50.0) % MPV (9.5-12.2) FL Lymphocytes # 0.9 L (0.90-5.00) X 10*3/uL Sodium 132 L (135-145) mmol/L Carbon Dioxide 21 L (21.6-31.8) mmol/L BUN/Creatinine Ratio (12.00-20.00) Ratio Glucose 152 H (74-99) mg/dL POC Glucose (mg/dL) (70-110) mg/dL AST (14-35) U/L Alkaline Phosphatase 204 H (41-126) U/L Total Protein 5.6 L (6.2-8.2) d/dL Albumin 2.9 L (3.8-4.9) d/dL Albumin/Globulin Ratio (1.60-3.17) Ratio Microbiology - Last 24 Hours (Table) 12/06/22 14:33 Urine Culture - Final Urine,Voided Assessment and Plan Plan: Assessment: 1. Acute allograft dysfunction mostly prerenal secondary to hypotension and infection. Improved. Creatinine 1.03 today. 2. Mild metabolic acidosis secondary to IV fluids. On oral bicarbonate. 3. UTI on antibiotics. ID following. 4. Diabetes mellitus. 5. Status post donor renal allograft in 2004 at [facility]. Plan: Decrease rate of normal saline to 50 mL an hour. Tacrolimus level high at 13.8 dated 12/06/2022. Hold tacrolimus today and resume tomorrow at a lower dose of 2 mg twice daily. Repeat tacrolimus level 2-3 days postdischarge. Follow up outpatient 1 week post discharge.
[2022-12-09] MEDS: INSULIN ASPART (NovoLOG) 100 UNIT/ML VIAL SQ SCH ×2 (08:50→13:07)
[2022-12-09] MEDS: SODIUM CHLORIDE 0.9% 1,000 ML IV SCH (08:50)
--- NOTE | 2022-12-09 10:21 | P.PN ---
Subjective HISTORY OF PRESENT ILLNESS: This is a 67-year-old male who lives in [place] and does not follow with a geoscience laboratory technician regularly. He is currently in [place] until the middle of December visiting family. The patient has a history of hypertension, hyperlipidemia, diabetes, and kidney transplant in 2015. the patient is admitted to the hospital secondary to sepsis. 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 Patient has been febrile overnight with a temperature of 101.5F. He is on IV antibiotics. Cardiology was consulted as the patient has been complaining of shortness of breath and chest pain for the past 2-3 months. He states he has been unable to get this evaluated down in [place] due to weight times to see a physician. patient currently denies any chest pain or pressure this morning. He currently denies any shortness of breath. Vital signs are stable. EKG obtained revealing biphasic T-wave in V2 and T-wave inversions in Lead 1 and V3-V6. 12/08/2022 Patient examined this morning at the bedside. He is eating breakfast. Patient denies any shortness of breath. He reports having an episode of chest discomfort this morning that only lasted for a short period of time and went away on its own. He denies any chest pain at the time of examination. Patient has been afebrile. Echocardiogram completed revealing ejection fraction 55-60% with no wall motion abnormalities noted and mild mitral regurgitation. 12/09/2022 Patient examined this might bedside. Patient denies any chest pain or pressure. He denies any shortness of breath. Vital signs are stable. Recent blood pressure 129/85. Heart rate is in the 60s. He is afebrile. PHYSICAL EXAM: VITAL SIGNS: Reviewed. GENERAL: Well-developed in no acute distress. NECK: Supple. No JVD or thyromegaly LUNGS: Respirations even and unlabored. Lungs essentially clear to auscultation bilaterally. HEART: Regular rate and rhythm. S1 and S2 heard. EXTREMITIES: Normal range of motion. No clubbing or cyanosis. Peripheral pulses intact. 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 ACS ruled out Abnormal EKG Hypertension Hyperlipidemia Diabetes History of kidney transplant 2014 PLAN: Continue current cardiac medications Patient scheduled for Lexiscan stress test today. Await results Further recommendations pending patient course Patient follow-up post discharge with Dr. De Leon Nurse practitioner note has been reviewed by physician. Signing provider agrees with the documented findings, assessment, and plan of care. Objective - Vital Signs Vital signs: Vital Signs Temp 98.8 F 12/09/22 07:44 Pulse 66 12/09/22 08:00 Resp 18 12/09/22 07:44 BP 129/85 12/09/22 07:44 Pulse Ox 96 12/09/22 07:44 FiO2 Intake & Output 12/08/22 12/09/22 12/09/22 18:59 06:59 18:59 Intake Total 900 Output Total 150 700 200 Balance 750 -700 -200 Intake: Intake, IV Titration 900 Amount Sodium Chloride 0.9% 1, 900 000 ml @ 50 mls/hr IV . Q20H [facility] Rx#:[id number] Output: Urine 150 700 200 Other: Voiding Method Toilet Toilet Toilet Urinal Urinal Urinal # Voids 1 - Labs CBC & Chem 7: 12/09/22 05:57 12/09/22 05:57 Labs: Abnormal Lab Results - Last 24 Hours (Table) 12/08/22 12/08/22 12/08/22 Range/Units 06:09 11:55 13:51 WBC (3.8-10.6) k/uL RBC (4.30-5.90) m/uL Hgb (13.0-17.5) gm/dL Hct (39.0-53.0) % Lymphocytes # (1.0-4.8) k/uL Sodium 134 L (135-145) mmol/L Carbon Dioxide 21.4 L (21.6-31.8) mmol/L BUN/Creatinine Ratio 21.36 H (12.00-20.00) Ratio Glucose (74-99) mg/dL POC Glucose (mg/dL) 159 H 223 H (70-110) mg/dL AST 42 H (14-35) U/L Alkaline Phosphatase 216 H (41-126) U/L Total Protein 5.5 L (6.2-8.2) d/dL Albumin 3.1 L (3.8-4.9) d/dL Albumin/Globulin Ratio 1.29 L (1.60-3.17) Ratio 12/08/22 12/08/22 12/09/22 Range/Units 17:20 20:03 05:57 WBC 3.5 L (3.8-10.6) k/uL RBC 3.46 L (4.30-5.90) m/uL Hgb 10.3 L (13.0-17.5) gm/dL Hct 31.0 L (39.0-53.0) % Lymphocytes # 0.9 L (1.0-4.8) k/uL Sodium (135-145) mmol/L Carbon Dioxide (21.6-31.8) mmol/L BUN/Creatinine Ratio (12.00-20.00) Ratio Glucose (74-99) mg/dL POC Glucose (mg/dL) 168 H 225 H (70-110) mg/dL AST (14-35) U/L Alkaline Phosphatase (41-126) U/L Total Protein (6.2-8.2) d/dL Albumin (3.8-4.9) d/dL Albumin/Globulin Ratio (1.60-3.17) Ratio 12/09/22 Range/Units 05:57 WBC (3.8-10.6) k/uL RBC (4.30-5.90) m/uL Hgb (13.0-17.5) gm/dL Hct (39.0-53.0) % Lymphocytes # (1.0-4.8) k/uL Sodium 132 L (135-145) mmol/L Carbon Dioxide 21 L (21.6-31.8) mmol/L BUN/Creatinine Ratio (12.00-20.00) Ratio Glucose 152 H (74-99) mg/dL POC Glucose (mg/dL) (70-110) mg/dL AST (14-35) U/L Alkaline Phosphatase 204 H (41-126) U/L Total Protein 5.6 L (6.2-8.2) d/dL Albumin 2.9 L (3.8-4.9) d/dL Albumin/Globulin Ratio (1.60-3.17) Ratio Microbiology - Last 24 Hours (Table) 12/06/22 14:33 Urine Culture - Final Urine,Voided
--- NOTE | 2022-12-09 10:24 | NM ---
EXAMINATION TYPE: NM stress lexiscan cardiolite DATE OF EXAM: 12/09/2022 COMPARISON: NONE CLINICAL INDICATION: Male, 67 years old with history of CP, SOB; TECHNIQUE: After the intravenous administration of 9.8 mCi Tc 99m Sestamibi - Cardiolite resting SPE CT images acquired 45 minutes post injection. The patient received 0.4mg Lexiscan, 24.9 mCi Tc 99m Sestamibi - Stress images obtained [address] injection FINDINGS: Review of stress and rest SPECT images demonstrates no distinct perfusion abnormality. Gated analysi s shows normal wall motion with an estimated left ventricular ejection fraction of 78 %. IMPRESSION: No scintigraphic evidence for reversible ischemia.
[2022-12-09] MEDS: ASPIRIN 81 MG PO SCH (10:47)
[2022-12-09] MEDS: ISOSORBIDE MONONITRATE ER 30 MG TAB.ER.24H PO SCH (10:47)
[2022-12-09] MEDS: LEVOTHYROXINE 88 MCG TAB PO SCH (10:48)
[2022-12-09] MEDS: METOPROLOL SUCCINATE (ER) 25 MG TAB.ER.24H PO SCH (10:48)
[2022-12-09] MEDS: SODIUM BICARBONATE TAB 650 MG TAB PO SCH (10:48)
[2022-12-09 11:11] LABS: Glucose,Whole Blood 191 mg/dL (70-110)
[2022-12-09 11:54] LABS: Glucose,Whole Blood 241 mg/dL (70-110)
--- NOTE | 2022-12-09 12:55 | CA ---
Lexiscan Nuclear Stress Test Report Name: Mauricio Byrne Exam Date: 12/09/2022 08:52 Exam Location: [facility] Stress Ht (in): 70 Wt (lb): 164 BSA: 1.92 Ordering Phys: Isamar Zimmerman Referring Phys: ELVIS, Technologist: Sacha Burks Age: 67 Gender: M : 1955 Procedure CPT: Indications: Reflex order-Stress test ICD-10 Codes: Patient History: Medications: SEE CHART Meds past 24 hrs: Pretest Chest Pain: STRESS TEST Lexiscan Protocol Exercise Duration (min:sec): 02:[address] Depressions (mm): Angina Score: Enriquez Score: Resting HR (bpm): 65 Peak HR (bpm): 99 Resting BP (mmHg): 127 / 75 Peak BP (mmHg): 149 / 77 MPHR: 153 Target HR: 130 % MPHR: 65 METS: 1.0 Total Dose: Peak Dose: Atropine: Double Product: 12838 BP Response: Stress Termination: PROTOCOL COMPLETE Stress Symptoms: NO SYMPTOMS Stress Summary: ECG ANALYSIS Resting ECG: Stress ECG: CONCLUSIONS At baseline EKG showed normal sinus rhythm, normal axis, T-wave inversion V3 through V5. Patient recieved IV infusion of Lexiscan 0.4mg and at peak infusion EKG showed no significant change from baseline. Conclusions: 1. Nonspecific stress EKG portion secondary baseline EKG abnormalities. 2. Nuclear imaging to be reported separately. Dr. Jorge Luis Umanzor DO (Electronically Signed) Final Date: 09 December 2022 12:54
[2022-12-09 13:39] VITALS: BP 118/72; PULSE 69; TEMP 97.9
--- NOTE | 2022-12-09 14:49 | P.PN ---
Subjective Progress Note Date: 12/09/22 patient is 67-year-old gentleman with past medical history significant for renal transplant, insulin-dependent diabetes mellitus presented to the ER because of decreased urination. Patient received renal transplant about 15 years ago. For the last couple of days patient has been experiencing decreased urination. Patient also noticing painful urination and pain in the suprapubic area. Patient also noticed that his urine was darker in color, denied any blood in urine. There was no complain of increased frequency of micturition. No complaint of fever or chills. Patient denied any nausea, vomiting or abdominal pain. Patient also has been noticing episodes of chest pain. Chest pain is Central in location, brought on by exertion, no relieving factors associated, pain is nonradiating. Patient complaining of shortness of breath on exertion as well. Denies any swelling of feet. Because of these complaints patient came to the ER of [facility]. Initial lab work done in the ER showed white count 11.6, hemoglobin 12.6, platelet count 256, sodium 132 Potassium 4.2, BUN57, creatinine 2.41 Patient was admitted to the medicine service for further evaluation and treatment 12/07. Patient seen and examined. States fevers have improved, denies any chills. Denies any shortness of breath at rest or exertion 12/08. Patient seen and examined. Ambulating in the room without any diffic ulty. 12/09. Patient seen and examined. Currently nothing by mouth, going for stress test today REVIEW OF SYSTEMS: CONSTITUTIONAL: No fever, no malaise,. CARDIOVASCULAR: No chest pain, no palpitations, no syncope. PULMONARY: No shortness of breath GASTROINTESTINAL: No diarrhea, no nausea, no vomiting, no abdominal pain. NEUROLOGICAL: No headaches, no weakness, PHYSICAL EXAMINATION: GENERAL: The patient is alert and oriented x3, not in any acute distress. Well developed, well nourished. HEENT: Pupils are round and equally reacting to light. EOMI. No scleral icterus. No conjunctival pallor. Normocephalic, atraumatic. No pharyngeal erythema. No thyromegaly. CARDIOVASCULAR: S1 and S2 present. No murmurs, rubs, or gallops. PULMONARY: Chest is clear to auscultation, no wheezing or crackles. ABDOMEN: Soft, nontender, nondistended, normoactive bowel sounds. No palpable organomegaly. MUSCULOSKELETAL: No joint swelling or deformity. EXTREMITIES: No cyanosis, clubbing, or pedal edema. NEUROLOGICAL: Gross neurological examination did not reveal any focal deficits. SKIN: No rashes. Assessment and plan Monitor vital signs Monitor CBC Monitor CMP Follow-up on urine cultures Continue IV Rocephin Continue aspirin, metoprolol, Imdur Results of 2-D echo noted, ejection fraction 55-60% with no wall motion abnormalities noted and mild mitral regurgitation. Currently nothing by mouth, going for Lexiscan Tacrolimus levels were elevated, nephrology recommended to hold tacrolimus and and to restart from tomorrow at a low dose of 2 mg twice daily Follow-up on nephrology recommendations Follow-up on ID recommendations Cardiology following Objective - Vital Signs Vital signs: Vital Signs Temp 98.8 F 12/09/22 07:44 Pulse 66 12/09/22 08:00 Resp 18 12/09/22 07:44 BP 129/85 12/09/22 07:44 Pulse Ox 96 12/09/22 07:44 FiO2 Intake & Output 12/08/22 12/09/22 12/09/22 18:59 06:59 18:59 Intake Total 900 Output Total 150 700 200 Balance 750 -700 -200 Intake: Intake, IV Titration 900 Amount Sodium Chloride 0.9% 1, 900 000 ml @ 50 mls/hr IV . Q20H [facility] Rx#:[id number] Output: Urine 150 700 200 Other: Voiding Method Toilet Toilet Toilet Urinal Urinal Urinal # Voids 1 - Labs CBC & Chem 7: 12/09/22 05:57 12/09/22 05:57 Labs: Abnormal Lab Results - Last 24 Hours (Table) 12/08/22 12/08/22 12/08/22 Range/Units 06:09 11:55 13:51 WBC (3.8-10.6) k/uL RBC (4.30-5.90) m/uL Hgb (13.0-17.5) gm/dL Hct (39.0-53.0) % Lymphocytes # (1.0-4.8) k/uL Sodium 134 L (135-145) mmol/L Carbon Dioxide 21.4 L (21.6-31.8) mmol/L BUN/Creatinine Ratio 21.36 H (12.00-20.00) Ratio Glucose (74-99) mg/dL POC Glucose (mg/dL) 159 H 223 H (70-110) mg/dL AST 42 H (14-35) U/L Alkaline Phosphatase 216 H (41-126) U/L Total Protein 5.5 L (6.2-8.2) d/dL Albumin 3.1 L (3.8-4.9) d/dL Albumin/Globulin Ratio 1.29 L (1.60-3.17) Ratio 12/08/22 12/08/22 12/09/22 Range/Units 17:20 20:03 05:57 WBC 3.5 L (3.8-10.6) k/uL RBC 3.46 L (4.30-5.90) m/uL Hgb 10.3 L (13.0-17.5) gm/dL Hct 31.0 L (39.0-53.0) % Lymphocytes # 0.9 L (1.0-4.8) k/uL Sodium (135-145) mmol/L Carbon Dioxide (21.6-31.8) mmol/L BUN/Creatinine Ratio (12.00-20.00) Ratio Glucose (74-99) mg/dL POC Glucose (mg/dL) 168 H 225 H (70-110) mg/dL AST (14-35) U/L Alkaline Phosphatase (41-126) U/L Total Protein (6.2-8.2) d/dL Albumin (3.8-4.9) d/dL Albumin/Globulin Ratio (1.60-3.17) Ratio 12/09/22 Range/Units 05:57 WBC (3.8-10.6) k/uL RBC (4.30-5.90) m/uL Hgb (13.0-17.5) gm/dL Hct (39.0-53.0) % Lymphocytes # (1.0-4.8) k/uL Sodium 132 L (135-145) mmol/L Carbon Dioxide 21 L (21.6-31.8) mmol/L BUN/Creatinine Ratio (12.00-20.00) Ratio Glucose 152 H (74-99) mg/dL POC Glucose (mg/dL) (70-110) mg/dL AST (14-35) U/L Alkaline Phosphatase 204 H (41-126) U/L Total Protein 5.6 L (6.2-8.2) d/dL Albumin 2.9 L (3.8-4.9) d/dL Albumin/Globulin Ratio (1.60-3.17) Ratio Microbiology - Last 24 Hours (Table) 12/06/22 14:33 Urine Culture - Final Urine,Voided
--- NOTE | 2022-12-09 16:21 | P.PN ---
Subjective Progress Note Date: 12/08/22 Principal diagnosis: Transplant Nephritis Patient is a 67-year-old male with a past medical history significant for renal transplant diabetes mellitus presented to hospital with urinary symptoms also noticed to be febrile. On today's evaluation that is 12/08/2022 the patient remains to be afebrile, patient is breathing comfortably no chest pain shortness of cough. Urinary symptom has improved and no diarrhea Objective - Vital Signs Vital signs: Vital Signs Temp 98.8 F 12/08/22 07:37 Pulse 69 12/08/22 07:37 Resp 18 12/08/22 07:37 BP 118/71 12/08/22 07:37 Pulse Ox 96 12/08/22 07:37 FiO2 Intake & Output 12/07/22 12/08/22 12/08/22 18:59 06:59 18:59 Intake Total 831 1140 Output Total 150 Balance 831 1140 -150 Intake: Intake, IV Titration 900 Amount Sodium Chloride 0.9% 1, 900 000 ml @ 75 mls/hr IV . [id number] [facility] Rx#:[id number] Oral 831 240 Output: Urine 150 Other: Voiding Method Toilet Toilet Toilet Urinal Urinal Urinal # Voids 4 1 # Bowel Movements 1 - Exam GENERAL DESCRIPTION: An elderly male lying in bed in no distress RESPIRATORY SYSTEM: Unlabored breathing , decreased breath sounds at bases HEART: S1 S2 regular rate and rhythm , ABDOMEN: Soft , no tenderness EXTREMITIES: No edema feet - Labs CBC & Chem 7: 12/09/22 05:57 12/09/22 05:57 Labs: Abnormal Lab Results - Last 24 Hours (Table) 12/07/22 12/07/22 12/08/22 Range/Units 15:29 17:37 06:09 RBC 3.30 L (4.40-5.60) X 10*6/uL Hgb 9.6 L (12.0-15.0) d/dL Hct 29.0 L (39.6-50.0) % MPV 8.8 L (9.5-12.2) FL Lymphocytes # 0.75 L (0.90-5.00) X 10*3/uL POC Glucose (mg/dL) 206 H 129 H (70-110) mg/dL Assessment and Plan (1) UTI (urinary tract infection) Current Visit: Yes Status: Acute Code(s): N39.0 - URINARY TRACT INFECTION, SITE NOT SPECIFIED SNOMED Code(s): 22004728 Plan: 1-Patient was in the hospital with sepsis in this patient did have fever tachycardia elevated white count source 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
--- NOTE | 2022-12-09 16:22 | P.PN ---
Subjective Progress Note Date: 12/09/22 Principal diagnosis: Transplant Nephritis Patient is a 67-year-old male with a past medical history significant for renal transplant diabetes mellitus presented to hospital with urinary symptoms also noticed to be febrile. On today's evaluation that is 12/09/2022 the patient continues to be afebrile, patient is breathing comfortably on room air, the patient denies chest pain shortness of cough. The patient Urinary symptom has improved and no diarrhea Objective - Vital Signs Vital signs: Vital Signs Temp 97.9 F 12/09/22 13:25 Pulse 69 12/09/22 13:25 Resp 18 12/09/22 13:25 BP 118/72 12/09/22 13:25 Pulse Ox 96 12/09/22 13:25 FiO2 Intake & Output 12/08/22 12/09/22 12/09/22 18:59 06:59 18:59 Intake Total 900 Output Total 150 700 200 Balance 750 -700 -200 Intake: Intake, IV Titration 900 Amount Sodium Chloride 0.9% 1, 900 000 ml @ 50 mls/hr IV . Q20H [facility] Rx#:[id number] Output: Urine 150 700 200 Other: Voiding Method Toilet Toilet Toilet Urinal Urinal Urinal # Voids 1 - Exam GENERAL DESCRIPTION: An elderly male lying in bed in no distress RESPIRATORY SYSTEM: Unlabored breathing , decreased breath sounds at bases HEART: S1 S2 regular rate and rhythm , ABDOMEN: Soft , no tenderness EXTREMITIES: No edema feet - Labs CBC & Chem 7: 12/09/22 05:57 12/09/22 05:57 Labs: Abnormal Lab Results - Last 24 Hours (Table) 12/08/22 12/08/22 12/08/22 Range/Units 06:09 17:20 20:03 WBC (3.8-10.6) k/uL RBC (4.30-5.90) m/uL Hgb (13.0-17.5) gm/dL Hct (39.0-53.0) % Lymphocytes # (1.0-4.8) k/uL Sodium 134 L (135-145) mmol/L Carbon Dioxide 21.4 L (21.6-31.8) mmol/L BUN/Creatinine Ratio 21.36 H (12.00-20.00) Ratio Glucose (74-99) mg/dL POC Glucose (mg/dL) 168 H 225 H (70-110) mg/dL AST 42 H (14-35) U/L Alkaline Phosphatase 216 H (41-126) U/L Total Protein 5.5 L (6.2-8.2) d/dL Albumin 3.1 L (3.8-4.9) d/dL Albumin/Globulin Ratio 1.29 L (1.60-3.17) Ratio 12/09/22 12/09/22 12/09/22 Range/Units 05:57 05:57 11:09 WBC 3.5 L (3.8-10.6) k/uL RBC 3.46 L (4.30-5.90) m/uL Hgb 10.3 L (13.0-17.5) gm/dL Hct 31.0 L (39.0-53.0) % Lymphocytes # 0.9 L (1.0-4.8) k/uL Sodium 132 L (135-145) mmol/L Carbon Dioxide 21 L (21.6-31.8) mmol/L BUN/Creatinine Ratio (12.00-20.00) Ratio Glucose 152 H (74-99) mg/dL POC Glucose (mg/dL) 191 H (70-110) mg/dL AST (14-35) U/L Alkaline Phosphatase 204 H (41-126) U/L Total Protein 5.6 L (6.2-8.2) d/dL Albumin 2.9 L (3.8-4.9) d/dL Albumin/Globulin Ratio (1.60-3.17) Ratio 12/09/22 Range/Units 11:53 WBC (3.8-10.6) k/uL RBC (4.30-5.90) m/uL Hgb (13.0-17.5) gm/dL Hct (39.0-53.0) % Lymphocytes # (1.0-4.8) k/uL Sodium (135-145) mmol/L Carbon Dioxide (21.6-31.8) mmol/L BUN/Creatinine Ratio (12.00-20.00) Ratio Glucose (74-99) mg/dL POC Glucose (mg/dL) 241 H (70-110) mg/dL AST (14-35) U/L Alkaline Phosphatase (41-126) U/L Total Protein (6.2-8.2) d/dL Albumin (3.8-4.9) d/dL Albumin/Globulin Ratio (1.60-3.17) Ratio Microbiology - Last 24 Hours (Table) 12/06/22 14:33 Urine Culture - Final Urine,Voided Assessment and Plan (1) UTI (urinary tract infection) Current Visit: Yes Status: Acute Code(s): N39.0 - URINARY TRACT INFECTION, SITE NOT SPECIFIED SNOMED Code(s): 26543319 Plan: 1-Patient was in the hospital with sepsis in this patient did have fever tachycardia elevated white count source 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
[2022-12-09 17:06] LABS: Glucose,Whole Blood 248 mg/dL (70-110)
[2022-12-10] MEDS ORDERED: TACROLIMUS 1 MG CAP PO SCH (09:00)
--- NOTE | 2022-12-10 09:07 | P.DS ---
Providers Date of admission: 12/05/22 23:56 Expected date of discharge: 12/10/22 Attending physician: Hector Rooney Consults: 12/05/22 23:54 Consult Physician Routine Consulting Provider: Tequila Pastor Consult Reason/Comments: luisa, hx of kidney transplant Do you want consulting provider notified?: Yes 12/06/22 10:38 Consult Physician Routine Consulting Provider: Olivier De Leon Consult Reason/Comments: exertional dyspnea and chest pain Do you want consulting provider notified?: Yes 12/06/22 14:49 Consult Physician Routine Consulting Provider: Moises Doran Consult Reason/Comments: fever Do you want consulting provider notified?: Yes Primary care physician: Stated None Hospital Course: Discharge diagnoses; Acute kidney injury UTI History of renal transplant Insulin-dependent diabetes mellitus Chest pain Exertional dyspnea Hospital course; patient is 67-year-old gentleman with past medical history significant for renal transplant, insulin-dependent diabetes mellitus presented to the ER because of decreased urination. Patient received renal transplant about 15 years ago. For the last couple of days patient has been experiencing decreased urination. Patient also noticing painful urination and pain in the suprapubic area. Patient also noticed that his urine was darker in color, denied any blood in urine. There was no complain of increased frequency of micturition. No complaint of fever or chills. Patient denied any nausea, vomiting or abdominal pain. Patient also has been noticing episodes of chest pain. Chest pain is Central in location, brought on by exertion, no relieving factors associated, pain is nonradiating. Patient complaining of shortness of breath on exertion as well. Denies any swelling of feet. Because of these complaints patient came to the ER of [facility]. Initial lab work done in the ER showed white count 11.6, hemoglobin 12.6, platelet count 256, sodium 132 Potassium 4.2, BUN57, creatinine 2.41 Patient was admitted to the medicine service for further evaluation and treatment 12/07. Patient seen and examined. States fevers have improved, denies any chills. Denies any shortness of breath at rest or exertion 12/08. Patient seen and examined. Ambulating in the room without any difficulty. 12/09. Patient seen and examined. Stress test was done, negative for ischemia. Cardiology cleared the patient for discharge. ID recommended discharging patient on Ceftin for one week. PHYSICAL EXAMINATION: GENERAL: The patient is alert and oriented x3, not in any acute distress. Well developed, well nourished. HEENT: Pupils are round and equally reacting to light. EOMI. No scleral icterus. No conjunctival pallor. Normocephalic, atraumatic. No pharyngeal erythema. No thyromegaly. CARDIOVASCULAR: S1 and S2 present. No murmurs, rubs, or gallops. PULMONARY: Chest is clear to auscultation, no wheezing or crackles. ABDOMEN: Soft, nontender, nondistended, normoactive bowel sounds. No palpable organomegaly. MUSCULOSKELETAL: No joint swelling or deformity. EXTREMITIES: No cyanosis, clubbing, or pedal edema. NEUROLOGICAL: Gross neurological examination did not reveal any focal deficits. SKIN: No rashes. Patient Condition at Discharge: Fair Plan - Discharge Summary Discharge Rx Participant: No New Discharge Prescriptions: New Tacrolimus [Prograf] 2 mg PO BID cap cefUROXime axetiL [Cefuroxime] 500 mg PO 14 #7 tab Aspirin 81 mg PO DAILY #30 tab Isosorbide Mononitrate ER [Imdur] 30 mg PO DAILY #30 tab Metoprolol Succinate (ER) [Toprol XL] 25 mg PO DAILY #30 tab Continue Tamsulosin HCl [Flomax] 0.4 mg PO HS Insulin Glargine [Lantus Vial] 22 unit SQ HS Simvastatin 40 mg PO HS Levothyroxine Sodium 88 mcg PO DAILY Fluocinonide 0.05% [Lidex 0.05% cream] 1 applic TOPICAL DAILY PRN PRN Reason: Rash Ubidecarenone [Coenzyme Q10] 200 mg PO DAILY INSULIN LISPRO (HumaLOG) [humaLOG] See Protocol SQ ACHS L.acidoph,Paracasei, B.lactis [Probiotic] 1 cap PO DAILY mycophenolate mofetiL [Cellcept] 1,000 mg PO BID Sodium Bicarbonate Tab 1,300 mg PO BID Famotidine [Pepcid] 20 mg PO BID Simethicone 180 mg PO 5XD PRN PRN Reason: Bloating Loperamide [Imodium] 2 mg PO Q6HR PRN PRN Reason: Diarrhea Colchicine 0.6 mg PO DAILY Turmeric Root Extract [Turmeric] 500 mg PO DAILY Multivitamins, Thera [Multivitamin (formulary)] 1 tab PO DAILY Magnesium Oxide [Mag-Ox] 800 mg PO BID Discontinued Tacrolimus [Prograf] 3 mg PO DAILY hydroCHLOROthiazide 12.5 mg PO DAILY Tacrolimus [Prograf] 2 mg PO HS Discharge Medication List Colchicine 0.6 mg PO DAILY 12/06/22 [History] Famotidine [Pepcid] 20 mg PO BID 12/06/22 [History] Fluocinonide 0.05% [Lidex 0.05% cream] 1 applic TOPICAL DAILY PRN 12/06/22 [History] INSULIN LISPRO (HumaLOG) [humaLOG] See Protocol SQ ACHS 12/06/22 [History] Insulin Glargine [Lantus Vial] 22 unit SQ HS 12/06/22 [History] L.acidoph,Paracasei, B.lactis [Probiotic] 1 cap PO DAILY 12/06/22 [History] Levothyroxine Sodium 88 mcg PO DAILY 12/06/22 [History] Loperamide [Imodium] 2 mg PO Q6HR PRN 12/06/22 [History] Magnesium Oxide [Mag-Ox] 800 mg PO BID 12/06/22 [History] Multivitamins, Thera [Multivitamin (formulary)] 1 tab PO DAILY 12/06/22 [History] Simethicone 180 mg PO 5XD PRN 12/06/22 [History] Simvastatin 40 mg PO HS 12/06/22 [History] Sodium Bicarbonate Tab 1,300 mg PO BID 12/06/22 [History] Tamsulosin HCl [Flomax] 0.4 mg PO HS 12/06/22 [History] Turmeric Root Extract [Turmeric] 500 mg PO DAILY 12/06/22 [History] Ubidecarenone [Coenzyme Q10] 200 mg PO DAILY 12/06/22 [History] mycophenolate mofetiL [Cellcept] 1,000 mg PO BID 12/06/22 [History] Aspirin 81 mg PO DAILY #30 tab 12/09/22 [Rx] Isosorbide Mononitrate ER [Imdur] 30 mg PO DAILY #30 tab 12/09/22 [Rx] Metoprolol Succinate (ER) [Toprol XL] 25 mg PO DAILY #30 tab 12/09/22 [Rx] Tacrolimus [Prograf] 2 mg PO BID cap 12/09/22 [Rx] cefUROXime axetiL [Cefuroxime] 500 mg PO 14 #7 tab 12/09/22 [Rx] Follow up Appointment(s)/Referral(s): Olivier De Leon MD [STAFF PHYSICIAN] - 1 Week (The office will call with a follow up appointment.) None,Stated [Primary Care Provider] - 1-2 days Burton Anton DO [STAFF PHYSICIAN] - 1 Week (please call to schedule a follow up appointment [phone].) Activity/Diet/Wound Care/Special Instructions: patient need to check tacrolimus levels in 2 days and follow up with nephrology in 1 week follow with cardiology in 1 -2 week Discharge Disposition: HOME SELF-CARE
== END 2022-12-09 18:05 | disposition home or self-care (01) | DRG 698 ==
LOC: EC 19:26 → 5NMEDONC 23:56
PROVIDERS: ADMIT Hospitalist; ATTEND Hospitalist
DX: T86.19 Other complication of kidney transplant (principal); A41.9 Sepsis, unspecified organism; N17.9 Acute kidney failure, unspecified; N39.0 Urinary tract infection, site not specified; R33.9 Retention of urine, unspecified; E10.22 Type 1 diabetes mellitus with diabetic chronic kidney disease; E78.5 Hyperlipidemia, unspecified; E86.9 Volume depletion, unspecified; N18.9 Chronic kidney disease, unspecified; I12.9 Hypertensive chronic kidney disease with stage 1 through stage 4 chronic kidney disease, or unspecified chronic kidney disease; N40.0 Benign prostatic hyperplasia without lower urinary tract symptoms; Y83.0 Surgical operation with transplant of whole organ as the cause of abnormal reaction of the patient, or of later complication, without mention of misadventure at the time of the procedure; Z79.4 Long term (current) use of insulin; Z79.624 Long term (current) use of inhibitors of nucleotide synthesis; Z79.899 Other long term (current) drug therapy
CPT/HCPCS: 36415; 51798; 71046; 76776; 78452; 80048; 80053; 80197; 81001; 82150; 83036; 83605; 83690; 83735; 84484; 85025; 87086; 93005; 93017; 93306; 99284

== ENCOUNTER 2022-12-22 09:30 | Inpatient (IN) | payer MEDICARE ==
[2022-12-22] MEDS ORDERED: ACETAMINOPHEN TAB 500 MG TAB PO STA (10:00)
--- NOTE | 2022-12-22 10:06 | ED ---
General Adult HPI - General Chief complaint: Urogenital Stated complaint: Recheck,Urine Issue,Fever Time Seen by Provider: 12/22/22 09:40 Source: patient, RN notes reviewed, old records reviewed Mode of arrival: ambulatory Limitations: no limitations - History of Present Illness Initial comments: This is a 67-year-old male who presents emergency Department complaining of dysuria low-grade fever and hematuria. Patient states he has a kidney transplant and recently in November had a urinary tract infection and now is having sex and symptoms. Patient denies any upper abdominal pain. Patient denies any nausea vomiting diarrhea. Patient states chest pain difficulty breathing. Patient denies any back pain - Related Data Home Medications Medication Instructions Recorded Confirmed Colchicine 0.6 mg PO DAILY 12/06/22 12/06/22 Famotidine [Pepcid] 20 mg PO BID 12/06/22 12/06/22 Fluocinonide 0.05% [Lidex 0.05% 1 applic TOPICAL DAILY PRN 12/06/22 12/06/22 cream] INSULIN LISPRO (HumaLOG) [humaLOG] See Protocol SQ ACHS 12/06/22 12/06/22 Insulin Glargine [Lantus Vial] 22 unit SQ HS 12/06/22 12/06/22 L.acidoph,Paracasei, B.lactis 1 cap PO DAILY 12/06/22 12/06/22 [Probiotic] Levothyroxine Sodium 88 mcg PO DAILY 12/06/22 12/06/22 Loperamide [Imodium] 2 mg PO Q6HR PRN 12/06/22 12/06/22 Magnesium Oxide [Mag-Ox] 800 mg PO BID 12/06/22 12/06/22 Multivitamins, Thera [Multivitamin 1 tab PO DAILY 12/06/22 12/06/22 (formulary)] Simethicone 180 mg PO 5XD PRN 12/06/22 12/06/22 Simvastatin 40 mg PO HS 12/06/22 12/06/22 Sodium Bicarbonate Tab 1,300 mg PO BID 12/06/22 12/06/22 Tamsulosin HCl [Flomax] 0.4 mg PO HS 12/06/22 12/06/22 Turmeric Root Extract [Turmeric] 500 mg PO DAILY 12/06/22 12/06/22 Ubidecarenone [Coenzyme Q10] 200 mg PO DAILY 12/06/22 12/06/22 mycophenolate mofetiL [Cellcept] 1,000 mg PO BID 12/06/22 12/06/22 Previous Rx's Medication Instructions Recorded Aspirin 81 mg PO DAILY #30 tab 12/09/22 Isosorbide Mononitrate ER [Imdur] 30 mg PO DAILY #30 tab 12/09/22 Metoprolol Succinate (ER) [Toprol 25 mg PO DAILY #30 tab 12/09/22 XL] Tacrolimus [Prograf] 2 mg PO BID cap 12/09/22 cefUROXime axetiL [Cefuroxime] 500 mg PO 14 #7 tab 12/09/22 Allergies Allergy/AdvReac Type Severity Reaction Status Date / Time allopurinol AdvReac Unknown Verified 12/22/22 09:34 Review of Systems ROS Statement: Those systems with pertinent positive or pertinent negative responses have been documented in the HPI. ROS Other: All systems not noted in ROS Statement are negative. Past Medical History Past Medical History: Diabetes Mellitus Additional Past Medical History / Comment(s): DM Type 1 post transplant, IgA nephropathy History of Any Multi-Drug Resistant Organisms: None Reported Additional Past Surgical History / Comment(s): Kidney transplant 2004, PD cath/removal, eye surgery as child Past Psychological History: No Psychological Hx Reported Smoking Status: Never smoker Past Alcohol Use History: Occasional Past Drug Use History: None Reported General Exam - General Exam Comments Initial Comments: GENERAL: Patient is well-developed and well-nourished. Patient is nontoxic and well- hydrated and is in mild distress. Patient's oral temperature is 100.4 ENT: Neck is soft and supple. No significant lymphadenopathy is noted. Oropharynx is clear. Moist mucous membranes. Neck has full range of motion without eliciting any pain. EYES: The sclera were anicteric and conjunctiva were pink and moist. Extraocular movements were intact and pupils were equal round and reactive to light. Eyelids were unremarkable. PULMONARY: Unlabored respirations. Good breath sounds bilaterally. No audible rales rhonchi or wheezing was noted. CARDIOVASCULAR: There is a regular rate and rhythm without any murmurs gallops or rubs. ABDOMEN: Soft and nontender with normal bowel sounds. SKIN: Skin is clear with no lesions or rashes and otherwise unremarkable. NEUROLOGIC: Patient is alert and oriented x3. Cranial nerves II through XII are grossly intact. Motor and sensory are also intact. Normal speech, volume and content. Symmetrical smile. MUSCULOSKELETAL: Normal extremities with adequate strength and full range of motion. LYMPHATICS: No significant lymphadenopathy is noted PSYCHIATRIC: Normal psychiatric evaluation. Limitations: no limitations Course Vital Signs 12/22/22 12/22/22 12/22/22 09:34 10:35 10:53 Temperature 98.6 F 100.4 F H 101.4 F H Pulse Rate 102 H Respiratory 18 Rate Blood Pressure 114/69 O2 Sat by Pulse 98 Oximetry 12/22/22 12/22/22 11:08 12:20 Temperature 99.5 F Pulse Rate 94 80 Respiratory 18 18 Rate Blood Pressure 111/63 119/72 O2 Sat by Pulse 100 98 Oximetry Medical Decision Making - Medical Decision Making EKG was interpreted by myself shows a sinus rhythm at 86 bpm PA interval 136 dresses 84 QT interval 328 QTC is 372. Patient's EKG shows no ST segment or depression. Patient does have T-wave abnormalities in V4 through V6 which were seen on the old EKG. Was pt. sent in by a medical professional or institution (, PA, SCHEDULING CLERK, urgent care, hospital, or fdc...) When possible be specific @ -No Did you speak to anyone other than the patient for history (EMS, parent, family, police, friend...)? What history was obtained from this source @ -No Did you review nursing and triage notes (agree or disagree)? Why? @ -I reviewed and agree with nursing and triage notes Were old charts reviewed (outside hosp., previous admission, EMS record, old EKG, old radiological studies, urgent care reports/EKG's, fdc records)? Report findings @ -2 reviewed prior lab work prior charting on this patient from his prior admission Differential Diagnosis (chest pain, altered mental status, abdominal pain women, abdominal pain men, vaginal bleeding, weakness, fever, dyspnea, syncope, headache, dizziness, GI bleed, back pain, seizure, CVA, palpatations, mental health, musculoskeletal)? @ -Differential Fever: Pneumonia, viral URI, endocarditis, myocarditis, pericarditis, otitis, sinusitis, peritonsillar Abscess, retropharyngeal Abscess, epiglottitis, peritonitis, appendicitis, [place] cystitis, diverticulitis, hepatitis, colitis, UTI, PID, TOA, pyelonephritis, prostatitis, epididymitis, meningitis, encephalitis, pulmonary embolism, CVA, thyroid storm, pancreatitis, adrenal crisis, cavernous sinus thrombosis, this is not meant to be an all-inclusive list. EKG interpreted by me (3pts min.). @ -As above X-rays interpreted by me (1pt min.). @ -Chest x-ray showed no acute abnormality CT interpreted by me (1pt min.). @ -None done U/S interpreted by me (1pt. min.). @ -None done What testing was considered but not performed or refused? (CT, X-rays, U/S, labs)? Why? @ -None What meds were considered but not given or refused? Why? @ -None Did you discuss the management of the patient with other professionals (professionals i.e. , PA, SCHEDULING CLERK, lab, RT, psych nurse, social sciences lecturer, contact lens molder, teacher, licensing officer, case liner)? Give summary @ -[facility] the patient I consulted Dr. Pastor the tipple tender and I consult infectious disease Was smoking cessation discussed for >3mins.? @ -No Was critical care preformed (if so, how long)? @ -No Were there social determinants of health that impacted care today? How? (Homelessness, low income, unemployed, alcoholism, drug addiction, transportation, low edu. Level, literacy, decrease access to med. care, skilled nursing, rehab)? @ -No Was there de-escalation of care discussed even if they declined (Discuss DNR or withdrawal of care, Hospice)? DNR status @ -No What co-morbidities impacted this encounter? (DM, HTN, Smoking, COPD, CAD, Cancer, CVA, ARF, Chemo, Hep., AIDS, mental health diagnosis, sleep apnea, morbid obesity)? @ -None Was patient admitted / discharged? Hospital course, mention meds given and route, prescriptions, significant lab abnormalities, going to OR and other pertinent info. @ - patient quite a few red cells in the urine this in association with the fever and decreased renal function and the fact that he did have some white cells in the urine I'm assuming it versus as urinary tract infection which is causing his problems and I will treat him accordingly. I spoke with [facility] hospitalist agreed to admit the patient I consulted ID and nephrology Undiagnosed new problem with uncertain prognosis? @ -No Drug Therapy requiring intensive monitoring for toxicity (Heparin, Nitro, Insulin, Cardizem)? @ -No Were any procedures done? @ -No Diagnosis/symptom? @ -Urinary tract infection Acute, or Chronic, or Acute on Chronic? @ -Acute Uncomplicated (without systemic symptoms) or Complicated (systemic symptoms)? @ -Complicated Side effects of treatment? @ -No Exacerbation, Progression, or Severe Exacerbation? @ -No Poses a threat to life or bodily function? How? (Chest pain, USA, MD, pneumonia, PE, COPD, DKA, ARF, appy, cholecystitis, CVA, Diverticulitis, Homicidal, Suicidal, threat to staff... and all critical care pts) @ -Yes because the patient has a transplanted kidney and he is more immunocompromised in this can lead to sepsis end organ dysfunction Diagnosis/symptom? @ -Renal insufficiency Acute, or Chronic, or Acute on Chronic? @ -Acute Uncomplicated (without systemic symptoms) or Complicated (systemic symptoms)? @ -Complicated Side effects of treatment? @ -none Exacerbation, Progression, or Severe Exacerbation] @ -no Poses a threat to life or bodily function? @ -no - Lab Data Result diagrams: 12/22/22 10:26 12/22/22 10:26 Lab Results 12/22/22 12/22/22 12/22/22 Range/Units 10:26 10:26 10:26 WBC 7.9 (3.8-10.6) k/uL RBC 3.91 L (4.30-5.90) m/uL Hgb 11.8 L (13.0-17.5) gm/dL Hct 34.7 L (39.0-53.0) % MCV 88.5 (80.0-100.0) fL MCH 30.1 (25.0-35.0) pg MCHC 34.0 (31.0-37.0) g/dL RDW 13.8 (11.5-15.5) % Plt Count 237 (150-450) k/uL MPV 7.3 Neutrophils % 79 % Lymphocytes % 10 % Monocytes % 9 % Eosinophils % 1 % Basophils % 0 % Neutrophils # 6.2 (1.3-7.7) k/uL Lymphocytes # 0.8 L (1.0-4.8) k/uL Monocytes # 0.7 (0-1.0) k/uL Eosinophils # 0.1 (0-0.7) k/uL Basophils # 0.0 (0-0.2) k/uL Sodium 135 L (137-145) mmol/L Potassium 4.9 (3.5-5.1) mmol/L Chloride 98 (98-107) mmol/L Carbon Dioxide 26 (22-30) mmol/L Anion Gap 11 mmol/L BUN 47 H (9-20) mg/dL Creatinine 1.73 H (0.66-1.25) mg/dL Est GFR (CKD-EPI)AfAm 46 (>60 ml/min/1.73 sqM) Est GFR (CKD-EPI)NonAf 40 (>60 ml/min/1.73 sqM) Glucose 95 (74-99) mg/dL Plasma Lactic Acid Fidel (0.7-2.0) mmol/L Calcium 9.6 (8.4-10.2) mg/dL Total Bilirubin 2.4 H (0.2-1.3) mg/dL AST 39 (17-59) U/L ALT 22 (4-49) U/L Alkaline Phosphatase 157 H (38-126) U/L Total Protein 7.0 (6.3-8.2) g/dL Albumin 4.0 (3.5-5.0) g/dL Urine Color Yellow Urine Appearance Clear (Clear) Urine pH 5.5 (5.0-8.0) Ur Specific [place] 1.026 (1.001-1.035) Urine Protein Trace H (Negative) Urine Glucose (UA) Negative (Negative) Urine Ketones Trace H (Negative) Urine Blood Moderate H (Negative) Urine Nitrite Negative (Negative) Urine Bilirubin Negative (Negative) Urine Urobilinogen <2.0 (<2.0) mg/dL Ur Leukocyte Esterase Small H (Negative) Urine RBC 136 H (0-5) /hpf Urine WBC 15 H (0-5) /hpf Urine Mucus Rare H (None) /hpf 12/22/22 Range/Units 10:26 WBC (3.8-10.6) k/uL RBC (4.30-5.90) m/uL Hgb (13.0-17.5) gm/dL Hct (39.0-53.0) % MCV (80.0-100.0) fL MCH (25.0-35.0) pg MCHC (31.0-37.0) g/dL RDW (11.5-15.5) % Plt Count (150-450) k/uL MPV Neutrophils % % Lymphocytes % % Monocytes % % Eosinophils % % Basophils % % Neutrophils # (1.3-7.7) k/uL Lymphocytes # (1.0-4.8) k/uL Monocytes # (0-1.0) k/uL Eosinophils # (0-0.7) k/uL Basophils # (0-0.2) k/uL Sodium (137-145) mmol/L Potassium (3.5-5.1) mmol/L Chloride (98-107) mmol/L Carbon Dioxide (22-30) mmol/L Anion Gap mmol/L BUN (9-20) mg/dL Creatinine (0.66-1.25) mg/dL Est GFR (CKD-EPI)AfAm (>60 ml/min/1.73 sqM) Est GFR (CKD-EPI)NonAf (>60 ml/min/1.73 sqM) Glucose (74-99) mg/dL Plasma Lactic Acid Fidel 0.8 (0.7-2.0) mmol/L Calcium (8.4-10.2) mg/dL Total Bilirubin (0.2-1.3) mg/dL AST (17-59) U/L ALT (4-49) U/L Alkaline Phosphatase (38-126) U/L Total Protein (6.3-8.2) g/dL Albumin (3.5-5.0) g/dL Urine Color Urine Appearance (Clear) Urine pH (5.0-8.0) Ur Specific [place] (1.001-1.035) Urine Protein (Negative) Urine Glucose (UA) (Negative) Urine Ketones (Negative) Urine Blood (Negative) Urine Nitrite (Negative) Urine Bilirubin (Negative) Urine Urobilinogen (<2.0) mg/dL Ur Leukocyte Esterase (Negative) Urine RBC (0-5) /hpf Urine WBC (0-5) /hpf Urine Mucus (None) /hpf Disposition Clinical Impression: History of kidney transplant, Urinary tract infection, Renal insufficiency Disposition: ADMITTED IP TO THIS HOSP Referrals: Nonstaff,Physician [Primary Care Provider] - 1-2 days Time of Disposition: 12:52
[2022-12-22 10:59] LABS: Basophils % (A) 0 %; Eosinophils # (A) 0.1 k/uL (0-0.7); Eosinophils % (A) 1 %; HCT 34.7 % (39.0-53.0); HGB 11.8 gm/dL (13.0-17.5); Lymphocytes # (A) 0.8 k/uL (1.0-4.8); Lymphocytes % (A) 10 %; MCH 30.1 pg (25.0-35.0); MCV 88.5 fL (80.0-100.0); Mean Platelet Volume 7.3; Monocytes # (A) 0.7 k/uL (0-1.0); Monocytes % (A) 9 %; Neutrophils # (A) 6.2 k/uL (1.3-7.7); Neutrophils % (A) 79 %; Platelet Count 237 k/uL (150-450); RBC 3.91 m/uL (4.30-5.90); RDW 13.8 % (11.5-15.5); WBC 7.9 k/uL (3.8-10.6)
[2022-12-22 11:00] LABS: Appearance,Urine Clear (Clear); Bilirubin,Urine Negative (Negative); Blood,Urine Moderate (Negative); Color,Urine Yellow; Glucose,Urine (UA) Negative (Negative); Ketones,Urine Trace (Negative); Leukocyte Esterase,Urine Small (Negative); Mucus,Urine Rare /hpf; Nitrite,Urine Negative (Negative); PH, Urine 5.5 (5.0-8.0); Protein,Urine Trace (Negative); RBC,Urine 136 /hpf (0-5); Specific Gravity,Urine 1.026 (1.001-1.035); Urobilinogen,Urine <2.0 mg/dL (<2.0); WBC,Urine 15 /hpf (0-5)
[2022-12-22 11:21] LABS: ALT 22 U/L (4-49); AST 39 U/L (17-59); African American GFR (CKD) 46 (>60 ml/min/1.73 sqM); Alkaline Phosphatase 157 U/L (38-126); Anion Gap 11 mmol/L; Blood Urea Nitrogen 47 mg/dL (9-20); Calcium 9.6 mg/dL (8.4-10.2); Carbon Dioxide 26 mmol/L (22-30); Chloride 98 mmol/L (98-107); Glucose 95 mg/dL (74-99); Non-African American GFR(CKD) 40 (>60 ml/min/1.73 sqM); Potassium 4.9 mmol/L (3.5-5.1); Sodium 135 mmol/L (137-145); Total Bilirubin 2.4 mg/dL (0.2-1.3)
--- NOTE | 2022-12-22 11:53 | XR ---
EXAMINATION TYPE: XR chest 2V DATE OF EXAM: 12/22/2022 COMPARISON: 12/06/2022 INDICATION: Fever TECHNIQUE: Frontal and lateral views of the chest are obtained. FINDINGS: The heart size is normal. The pulmonary vasculature is normal. The lungs are clear. IMPRESSION: 1. No acute pulmonary process.
[2022-12-22] MEDS ORDERED: cefTRIAXone IN SWFI 1,000 MG/10 ML SYRINGE IVP STA (11:58)
[2022-12-22] MEDS ORDERED: SODIUM CHLORIDE 0.9% 1,000 ML IV ONE (12:53)
[2022-12-22] MEDS ORDERED: BETAMETHASONE DIPROPIONATE 0.05% CREAM 15 GM TUBE TOPICAL PRN (15:14)
[2022-12-22] MEDS ORDERED: LOPERAMIDE 2 MG CAP PO PRN (15:14)
[2022-12-22] MEDS ORDERED: SIMETHICONE 80 MG CHEWABLE PO PRN (15:14)
[2022-12-22] MEDS ORDERED: DEXTROSE 50% SYRINGE 50 ML IVP PRN ×2 (15:16)
[2022-12-22] MEDS ORDERED: IOPAMIDOL CONTRAST (ORAL USE) VIAL PO PRN (15:17)
[2022-12-22 18:21] LABS: Glucose,Whole Blood 201 mg/dL (70-110)
[2022-12-22] MEDS: INSULIN ASPART (NovoLOG) 100 UNIT/ML VIAL SQ SCH ×2 (18:41→21:50)
[2022-12-22] MEDS ORDERED: FAMOTIDINE 20 MG TAB PO SCH (21:00)
[2022-12-22] MEDS: MAGNESIUM OXIDE 400 MG TAB PO SCH (21:04)
[2022-12-22] MEDS: SODIUM BICARBONATE TAB 650 MG TAB PO SCH (21:05)
[2022-12-22] MEDS: ATORVASTATIN 20 MG TAB PO SCH (21:06)
[2022-12-22] MEDS: TAMSULOSIN 0.4 MG CAP.ER.24H PO SCH (21:06)
[2022-12-22] MEDS: TACROLIMUS 1 MG CAP PO SCH ×2 (21:51→21:59)
[2022-12-22] MEDS: INSULIN DETEMIR (LEVEMIR) 100 UNIT/ML SYR SQ SCH (21:51)
--- NOTE | 2022-12-22 22:12 | HP ---
HISTORY AND PHYSICAL CHIEF COMPLAINT: Dysuria, hematuria, and low-grade fever. HISTORY OF PRESENT ILLNESS: This is a 67-year-old gentleman with a past medical history of renal transplantation, had a UTI earlier this year. The patient improved significantly. Cultures were negative. The patient went home, and the renal ultrasound showed transplanted kidney and some calyceal system dilatation. Otherwise, currently, the patient is complaining of dysuria and recurrence of symptoms with fever and some chills. The patient came to [facility]. UTI was suspected. The patient was admitted for further evaluation and treatment. The transplanted kidney on the right side is slightly tender and firm. There is no history of any headache, loss of consciousness, or seizures. PAST MEDICAL HISTORY: Reviewed includes chronic kidney disease and renal transplantation. Rest of the history and rest of the chart are also reviewed. HOME MEDICATIONS: Reviewed include CellCept. Doses and rest of the medications are noted. ALLERGIES: Allopurinol. FAMILY HISTORY: No history of heart disease or strokes in the family. SOCIAL HISTORY: Occasional alcohol intake. REVIEW OF SYSTEMS: Fourteen-point review is negative except as mentioned earlier. PHYSICAL EXAMINATION: VITAL SIGNS: Pulse is 80, blood pressure is 119/72, respirations 18, temperature 101.4. HEENT: Conjunctivae are normal. NECK: No jugular venous distention. CARDIOVASCULAR: S1 and S2 muffled. RESPIRATORY: Breath sounds diminished at the bases. ABDOMEN: Soft. Mild diffuse discomfort. Otherwise, right transplanted kidney felt, firm. No guarding. No rigidity. No tenderness. No ascites. LEGS: No edema. No cyanosis. NERVOUS SYSTEM: Nonfocal. SKIN: No ulcers or rashes. LABORATORY DATA: Reviewed. ASSESSMENT: 1. Acute urinary tract infection with recurrence of symptoms with possible sepsis present on admission. 2. History of renal transplantation. 3. Chronic kidney disease, stage 3. 4. Diabetes mellitus, type 1. 5. History of IgA nephropathy. RECOMMENDATIONS AND DISCUSSION: In this 67-year-old gentleman presented with multiple complex medical issues, we will monitor the patient closely. I would recommend to initiate broad-spectrum IV antibiotics, Infectious Disease evaluation, obtain cultures, symptomatic treatment. I would also recommend a CAT scan of the abdomen and pelvis and continue to monitor. The home medications will be continued once they are confirmed. Prognosis is guarded. Discussed with the patient, who understands and agrees. Further recommendations to follow. See orders for the details. MMODL / IJN: [id number] /
--- NOTE | 2022-12-22 22:45 | P.CONS ---
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 ago patient was recently admitted at [facility] middle of November 2022 complaining of weakness and burning of urine and was diagnosed with a transplant nephritis patient was treated with IV Rocephin urine culture were negative blood culture negative patient was sent home on a 7-day course of Ceftin with the patient has completed patient now presenting back to the hospital this morning concerning for dysuria and low-grade fever and hematuria symptoms going on for the last few days patient denies any history of any trauma has been complaining of mostly burning of urine some difficulty urination minimal blood in the urine denies any suprapubic or flank pain some nausea but no vomiting and no diarrhea patient on presentation to the hospital did have a fever of 100.4 subsequent spiked a fever of 101.4 F patient was mildly tachycardic not hypotensive or hypoxic did have a normal white count BUN/creatinine has been mildly elevated liver exams are normal urine was positive with small leukocyte Estrace 15 WBC patient was given a dose of Rocephin has been admitted to hospital infectious disease was consulted for further management of antibiotic therapy Past Medical History Past Medical History: Diabetes Mellitus Additional Past Medical History / Comment(s): DM Type 1 post transplant, IgA nephropathy History of Any Multi-Drug Resistant Organisms: None Reported Additional Past Surgical History / Comment(s): Kidney transplant 2004, PD cath/removal, eye surgery as child Past Psychological History: No Psychological Hx Reported Smoking Status: Never smoker Past Alcohol Use History: Occasional Past Drug Use History: None Reported Medications and Allergies Home Medications Medication Instructions Recorded Confirmed Type Colchicine 0.6 mg PO DAILY 12/06/22 12/22/22 History Famotidine [Pepcid] 20 mg PO BID 12/06/22 12/22/22 History Fluocinonide 0.05% [Lidex 0.05% 1 applic TOPICAL DAILY PRN 12/06/22 12/22/22 History cream] INSULIN LISPRO (HumaLOG) [humaLOG] See Protocol SQ ACHS 12/06/22 12/22/22 History Insulin Glargine [Lantus Vial] 22 unit SQ HS 12/06/22 12/22/22 History L.acidoph,Paracasei, B.lactis 1 cap PO DAILY 12/06/22 12/22/22 History [Probiotic] Levothyroxine Sodium 88 mcg PO DAILY 12/06/22 12/22/22 History Loperamide [Imodium] 2 mg PO Q6HR PRN 12/06/22 12/22/22 History Magnesium Oxide [Mag-Ox] 800 mg PO BID 12/06/22 12/22/22 History Multivitamins, Thera [Multivitamin 1 tab PO DAILY 12/06/22 12/22/22 History (formulary)] Simethicone 180 mg PO 5XD PRN 12/06/22 12/22/22 History Simvastatin 40 mg PO HS 12/06/22 12/22/22 History Sodium Bicarbonate Tab 1,300 mg PO BID 12/06/22 12/22/22 History Tamsulosin HCl [Flomax] 0.4 mg PO HS 12/06/22 12/22/22 History Turmeric Root Extract [Turmeric] 500 mg PO DAILY 12/06/22 12/22/22 History Ubidecarenone [Coenzyme Q10] 200 mg PO DAILY 12/06/22 12/22/22 History mycophenolate mofetiL [Cellcept] 1,000 mg PO BID 12/06/22 12/22/22 History Aspirin 81 mg PO DAILY #30 tab 12/09/22 12/22/22 Rx Isosorbide Mononitrate ER [Imdur] 30 mg PO DAILY #30 tab 12/09/22 12/22/22 Rx Metoprolol Succinate (ER) [Toprol 25 mg PO DAILY #30 tab 12/09/22 12/22/22 Rx XL] Tacrolimus [Prograf] 2 mg PO BID cap 12/09/22 12/22/22 Rx Allergies Allergy/AdvReac Type Severity Reaction Status Date / Time allopurinol AdvReac Unknown Verified 12/22/22 13:36 Physical Exam Vitals: Vital Signs Temp Pulse Resp BP Pulse Ox 12/22/22 12:20 99.5 F 80 18 119/72 98 12/22/22 11:08 94 18 111/63 100 12/22/22 10:53 101.4 F H 12/22/22 10:35 100.4 F H 12/22/22 09:34 98.6 F 102 H 18 114/69 98 Intake and Output 12/21/22 12/22/22 12/22/22 22:59 06:59 14:59 Other: Weight 73.482 kg Results CBC & Chem 7: 12/23/22 07:44 12/23/22 07:44 Labs: Abnormal Lab Results - Last 24 Hours (Table) 12/22/22 12/22/22 12/22/22 Range/Units 10:26 10:26 10:26 RBC 3.91 L (4.30-5.90) m/uL Hgb 11.8 L (13.0-17.5) gm/dL Hct 34.7 L (39.0-53.0) % Lymphocytes # 0.8 L (1.0-4.8) k/uL Sodium 135 L (137-145) mmol/L BUN 47 H (9-20) mg/dL Creatinine 1.73 H (0.66-1.25) mg/dL Total Bilirubin 2.4 H (0.2-1.3) mg/dL Alkaline Phosphatase 157 H (38-126) U/L Urine Protein Trace H (Negative) Urine Ketones Trace H (Negative) Urine Blood Moderate H (Negative) Ur Leukocyte Esterase Small H (Negative) Urine RBC 136 H (0-5) /hpf Urine WBC 15 H (0-5) /hpf Urine Mucus Rare H (None) /hpf Assessment and Plan Plan: 1patient was in the hospital with sepsis in this patient did have fever tachycardia source is likely UTI in this patient with a history of renal transplant on immunosuppressive medication recently did have a similar episode and the patient responded to the Rocephin and cultures were negative with recent admission to the hospital and antibiotic exposure will need to cover for the resistant gram-negative 2-await CT abdominal pelvis ordered by admitting team 3-we will start the patient on cefepime 2 g every 12 while waiting for the culture to finalize 4-check inflammatory markers We will follow on clinical condition and cultures to further adjust medication if needed Thank you for this consultation we will follow the patient along with you Time with Patient: Greater than 30
[2022-12-22] MEDS: CEFEPIME 2 GM in SODIUM CHLORIDE 0.9% 100 ML IVPB SCH (23:00)
--- NOTE | 2022-12-22 23:57 | CT ---
EXAMINATION TYPE: CT abdomen pelvis wo con DATE OF EXAM: 12/22/2022 COMPARISON: None INDICATION: reccurrent UTI DLP: 570.2 mGycm, Automated exposure control for dose reduction was used. CONTRAST: 0 mL of Isovue 300. Study performed with Oral Contrast TECHNIQUE: Axial images were obtained from above the diaphragm to the pubic rami in the axial plane a t 5 mm thick sections. Reconstructed images are reviewed on the computer in the coronal plane. FINDINGS: Limited CT sections are obtained the lung bases. Mild streak atelectasis in the posterior medial chey g base. Lung bases are otherwise clear. Small pericardial effusion is present. CT ABDOMEN: Liver: There is an ill-defined large hypodensity within the right lobe liver measuring 8.7 cm suspici ous for a large neoplasm. No suspicious abnormality identified within the left lobe liver. Spleen: Enlarged at 14.7 cm. Normal less than 12.5 cm. Pancreas: Normal Adrenal glands: The adrenal glands are normal. Gallbladder: Normal Kidneys: The [place] kidneys are atrophic. No hydronephrosis is evident. The noncontrast imaging throu gh the right renal transplant appears unremarkable. No hydronephrosis is evident. No surrounding flui d is evident. Aorta: Vascular calcification is within the aorta. Inferior vena cava: Normal. CT PELVIS: Loops of bowel distended with oral contrast within the abdomen and pelvis are normal. There are l oops of bowel which are incompletely distended or lack oral contrast limiting their evaluation. Appendix: Not identified. No dilated tubular structure or inflammatory changes are evident. Urinary bladder: Normal. Genitourinary structures: Prostate is prominent. Osseous structures: No suspicious lytic or sclerotic lesions. IMPRESSIONS: 1. Large 8.7 cm ill-defined mass within the liver suspicious for neoplasm. Additional workup is noris mmended. 2. Transplant kidney appears unremarkable. [place] kidneys are atrophic. 3. Small pericardial effusion A [place] level critical message alert has been initiated for Hector Rooney MD via the [employer] Critical Results System on 12/22/2022 11:54 PM. This message alert has been sent to Hector Rooney MD via the preferences provided by the clinician for the receipt of Radiology Critical Findings. Message ID [id number].
[2022-12-23 08:04] LABS: Glucose,Whole Blood 172 mg/dL (70-110)
[2022-12-23] MEDS: INSULIN ASPART (NovoLOG) 100 UNIT/ML VIAL SQ SCH ×5 (08:27→21:19)
[2022-12-23] MEDS: ASPIRIN 81 MG PO SCH ×2 (09:06→09:09)
[2022-12-23] MEDS: ATORVASTATIN 20 MG TAB PO SCH ×2 (09:06→21:19)
[2022-12-23] MEDS: FAMOTIDINE 20 MG TAB PO SCH (09:06)
[2022-12-23] MEDS: METOPROLOL SUCCINATE (ER) 25 MG TAB.ER.24H PO SCH (09:08)
[2022-12-23] MEDS: MAGNESIUM OXIDE 400 MG TAB PO SCH ×2 (09:08→21:19)
[2022-12-23] MEDS: MULTIVITAMINS, THERA 1 EACH TAB PO SCH (09:09)
[2022-12-23] MEDS: LEVOTHYROXINE 88 MCG TAB PO SCH (09:10)
[2022-12-23] MEDS: TACROLIMUS 1 MG CAP PO SCH ×2 (09:11→21:19)
[2022-12-23] MEDS: ISOSORBIDE MONONITRATE ER 30 MG TAB.ER.24H PO SCH (09:12)
[2022-12-23] MEDS: SODIUM BICARBONATE TAB 650 MG TAB PO SCH ×2 (09:12→21:19)
[2022-12-23] MEDS: NON FORMULARY DRUG (L.Acidoph,Paracasei, B.Lactis [Probiotic] 1 EACH Capsule) PO SCH (09:13)
[2022-12-23] MEDS: NON FORMULARY DRUG (Ubidecarenone [Coenzyme Q10] 200 MG Capsule) PO SCH (09:14)
[2022-12-23] MEDS: COLCHICINE 0.6 MG EACH PO SCH (10:36)
[2022-12-23 11:07] LABS: Basophils # (A) 0.01 X 10*3/uL (0.00-0.10); Basophils % (A) 0.1 %; Eosinophils # (A) 0.11 X 10*3/uL (0.04-0.35); Eosinophils % (A) 1.3 %; HCT 34.5 % (39.6-50.0); Lymphocytes # (A) 1.08 X 10*3/uL (0.90-5.00); Lymphocytes % (A) 12.9 %; MCH 28.6 pg (27.0-32.0); MCHC 31.9 d/dL (32.0-37.0); MCV 89.8 FL (80.0-97.0); Mean Platelet Volume 9.4 FL (9.5-12.2); Monocytes # (A) 0.96 X 10*3/uL (0.20-1.00); Monocytes % (A) 11.5 %; NRBC Per 100 WBC 0 X 10*3/uL (0.00-0.01); Neutrophils # (A) 6.16 X 10*3/uL (1.80-7.70); Neutrophils % (A) 73.7 %; Platelet Count 190 X 10*3/uL (140-440); RBC 3.84 X 10*6/uL (4.40-5.60); RDW 13.5 % (11.5-14.5); WBC 8.36 X 10*3/uL (4.50-10.00)
[2022-12-23 11:15] LABS: BUN/Creat Ratio 22.87 Ratio (12.00-20.00); Blood Urea Nitrogen 34.3 mg/dL (9.0-27.0); Calcium 9.9 mg/dL (8.7-10.3); Carbon Dioxide 21.8 mmol/L (21.6-31.8); Chloride 100 mmol/L (96-109); Glucose 173 mg/dL (70-110); Sodium 133 mmol/L (135-145)
[2022-12-23 11:55] LABS: Glucose,Whole Blood 226 mg/dL (70-110)
[2022-12-23] MEDS: CEFEPIME 2 GM in SODIUM CHLORIDE 0.9% 100 ML IVPB SCH ×2 (12:12→23:29)
--- NOTE | 2022-12-23 12:16 | P.NPCON ---
History of Present Illness - Reason for Consult acute renal failure - History of Present Illness Patient is a 67-year-old male with history of donor renal transplant for IgA nephropathy about 15 years ago. Patient resides in [place] and was here on vacation. He was admitted about 2 weeks ago with complaints of abdominal discomfort decreased urine output and fever. Urine culture at that time did not grow any organism. UA was suggestive of underlying UTI. Patient was treated with antibiotics and IV fluids. Serum creatinine Had improved during his last admission from 2.4 to 1.03 on discharge. Patient returns with similar symptoms. He has a fever again of 100.3F and abdominal discomfort. UA shows WBCs 15 with trace protein and moderate blood. Serum creatinine is elevated at 1.7 and decreased to 1.5 today with IV hydration. CT of the abdomen shows no major abnormalities in the transplant kidney. There was some fullness noted during his last hospitalization and patient's post void residual was not elevated. Prograf level was also high at 13.8 on 12/06/2022. His Prograf was decreased to 2 mg twice a day. Repeat level is not available. Past Medical History Past Medical History: Diabetes Mellitus Additional Past Medical History / Comment(s): DM Type 1 post transplant, IgA nephropathy History of Any Multi-Drug Resistant Organisms: None Reported Additional Past Surgical History / Comment(s): Kidney transplant 2004, PD cath/removal, eye surgery as child Past Psychological History: No Psychological Hx Reported Smoking Status: Never smoker Past Alcohol Use History: Occasional Past Drug Use History: None Reported Medications and Allergies Home Medications Medication Instructions Recorded Confirmed Type Colchicine 0.6 mg PO DAILY 12/06/22 12/22/22 History Famotidine [Pepcid] 20 mg PO BID 12/06/22 12/22/22 History Fluocinonide 0.05% [Lidex 0.05% 1 applic TOPICAL DAILY PRN 12/06/22 12/22/22 History cream] INSULIN LISPRO (HumaLOG) [humaLOG] See Protocol SQ ACHS 12/06/22 12/22/22 History Insulin Glargine [Lantus Vial] 22 unit SQ HS 12/06/22 12/22/22 History L.acidoph,Paracasei, B.lactis 1 cap PO DAILY 12/06/22 12/22/22 History [Probiotic] Levothyroxine Sodium 88 mcg PO DAILY 12/06/22 12/22/22 History Loperamide [Imodium] 2 mg PO Q6HR PRN 12/06/22 12/22/22 History Magnesium Oxide [Mag-Ox] 800 mg PO BID 12/06/22 12/22/22 History Multivitamins, Thera [Multivitamin 1 tab PO DAILY 12/06/22 12/22/22 History (formulary)] Simethicone 180 mg PO 5XD PRN 12/06/22 12/22/22 History Simvastatin 40 mg PO HS 12/06/22 12/22/22 History Sodium Bicarbonate Tab 1,300 mg PO BID 12/06/22 12/22/22 History Tamsulosin HCl [Flomax] 0.4 mg PO HS 12/06/22 12/22/22 History Turmeric Root Extract [Turmeric] 500 mg PO DAILY 12/06/22 12/22/22 History Ubidecarenone [Coenzyme Q10] 200 mg PO DAILY 12/06/22 12/22/22 History mycophenolate mofetiL [Cellcept] 1,000 mg PO BID 12/06/22 12/22/22 History Aspirin 81 mg PO DAILY #30 tab 12/09/22 12/22/22 Rx Isosorbide Mononitrate ER [Imdur] 30 mg PO DAILY #30 tab 12/09/22 12/22/22 Rx Metoprolol Succinate (ER) [Toprol 25 mg PO DAILY #30 tab 12/09/22 12/22/22 Rx XL] Tacrolimus [Prograf] 2 mg PO BID cap 12/09/22 12/22/22 Rx Allergies Allergy/AdvReac Type Severity Reaction Status Date / Time allopurinol AdvReac Unknown Verified 12/22/22 13:36 Physical Exam Vitals: Vital Signs Temp Pulse Resp BP Pulse Ox 12/23/22 11:15 86 18 122/74 100 12/23/22 10:41 99.1 F 85 20 124/78 99 12/23/22 08:01 99.7 F H 89 16 114/78 99 12/23/22 04:55 82 18 100/55 100 12/22/22 23:21 100.3 F H 12/22/22 22:01 92 18 109/64 98 12/22/22 19:58 101 H 18 116/65 97 12/22/22 18:35 101.2 F H 90 18 118/64 97 12/22/22 14:14 98.6 F 94 18 115/54 99 12/22/22 12:20 99.5 F 80 18 119/72 98 Patient is awake, comfortable, in no acute distress Examination of the heart S1 and S2 Examination of the lungs bilateral breath sounds are heard. Allograft is nontender Abdomen is soft nontender Examination of lower extremities shows no edema CULINARY MANAGER exam grossly intact Results - Lab Results Most recent lab results Calcium 9.9 mg/dL (8.7-10.3) 12/23/22 07:44 12/23/22 07:44 12/23/22 07:44 Assessment and Plan Assessment: 1. Acute kidney injury associated with underlying infection. Component of hypovolemia as well, currently improved with IV hydration. CT of the abdomen was unremarkable for the transplant kidney. UA shows WBCs 15 with trace blood and 1+ protein. Prograf level was also elevated on 12/06/2022 and dose was decreased at that time. We will repeat an 2. UTI with urine culture not growing any specific organism during his last admission but significantly improved with IV antibiotics. Patient is Being followed by ID 3. 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 4. Volume depletion 5. Elevated tacrolimus level last admission status post decreased dose. Repeat Trough level will be obtained for tomorrow morning. Plan: continue IV fluids Repeat tacrolimus level in a.m. Continue antibiotics Consultation with ID.
[2022-12-23] MEDS ORDERED: DEXTROSE 50% SYRINGE 50 ML IVP PRN ×2 (13:14)
[2022-12-23] MEDS ORDERED: ACETAMINOPHEN TAB 325 MG TAB PO PRN (16:02)
[2022-12-23] MEDS ORDERED: ACETAMINOPHEN TAB 500 MG TAB PO STA (16:29)
[2022-12-23 17:16] LABS: Glucose,Whole Blood 136 mg/dL (70-110)
--- NOTE | 2022-12-23 17:38 | CT ---
EXAMINATION TYPE: CT chest wo con and CT abdomen pelvis multiphase with IV contrast CT DLP: 535.8 mGycm, Automated exposure control for dose reduction was used. DATE OF EXAM: 12/23/2022 4:27 PM COMPARISON: CT abdomen pelvis 12/22/2022. CLINICAL INDICATION:Male, 67 years old with history of liver mass, staging, liver mass TECHNIQUE: Multiple axial images were obtained through the chest. Sagittal and coronal reformats were created for review. Contrast used: mL of (None if empty) Oral contrast used: (None if empty) FINDINGS: LUNGS/ PLEURA: No evidence of focal consolidation, pneumothorax or pleural effusion. No pulmonary nod ules. No masses identified. The AIRWAY: Patent and unremarkable. HEART: Size within normal limits. MEDIASTINUM: No gross evidence of adenopathy. VASCULATURE: No aortic aneurysm. MUSCULOSKELETAL: No acute osseous abnormalities SOFT TISSUES/LYMPH NODES: Unremarkable. LOWER NECK: No significant findings. UPPER ABDOMEN: large liver masses as seen on CT abdomen pelvis 12/22/2022 measuring up to 9.0 cm. Atro phic appearing kidneys. Left adrenal nodule measuring 13 mm compatible with benign lipid rich adrenal adenoma. The right adrenal gland is unremarkable. The gallbladder wall thickening the IMPRESSION: 1. No evidence for pulmonary nodule or suspicious finding within the thorax to suggest metastatic di sease. 2. Large hepatic mass as seen on CT from 12/22/2022. Tissue sampling recommended as findings are jai rning for primary hepatocellular carcinoma versus metastatic disease. 3. Atrophic [place] kidneys. 4. Left adrenal lipid rich adenoma.
[2022-12-23 18:38] LABS: Glucose,Whole Blood 295 mg/dL (70-110)
--- NOTE | 2022-12-23 19:09 | P.CONS ---
History of Present Illness - Reason for Consult Consult date: 12/23/22 liver mass Requesting physician: Mary Darnell - Chief Complaint dysuria - History of Present Illness Patient is a 67-year-old male with a significant history of kidney transplant and diabetes mellitus. Patient reports he was admitted to the hospital approximately 2 weeks ago with similar symptoms complaining of dysuria and fever. He was treated with antibiotics at that time with initial improvement in symptoms. Patient states over the last 2 days he began experiencing dysuria fever and hematuria which caused him to present to the ER for further evaluation. Patient reports no personal history of cancer. Denies unintentional weight loss but reports night sweats. Last colonoscopy was 17 years ago, and has never had an EGD. CT abdomen and pelvis revealed large 8.7 cm ill-defined mass within the liver suspicious for neoplasm. Chest x-ray showed no acute pulmonary process. UA revealed hematuria and likely UTI. Patient has been started on cefepime. T max 101.4. Blood cultures and urine culture pending. Bilirubin elevated 2.4. AST and ALT WNL. ALP elevated at 157. Creatinine 1.7. WBC 7.9, hemoglobin 11.8, platelets 237,000. Review of Systems 10 point ROS is negative except as stated in the HPI Past Medical History Past Medical History: Diabetes Mellitus Additional Past Medical History / Comment(s): DM Type 1 post transplant, IgA nephropathy History of Any Multi-Drug Resistant Organisms: None Reported Additional Past Surgical History / Comment(s): Kidney transplant 2004, PD cath/removal, eye surgery as child Past Anesthesia/Blood Transfusion Reactions: No Reported Reaction Past Psychological History: No Psychological Hx Reported Smoking Status: Never smoker Past Alcohol Use History: None Reported, Occasional Past Drug Use History: None Reported Medications and Allergies Home Medications Medication Instructions Recorded Confirmed Type Colchicine 0.6 mg PO DAILY 12/06/22 12/22/22 History Famotidine [Pepcid] 20 mg PO BID 12/06/22 12/22/22 History Fluocinonide 0.05% [Lidex 0.05% 1 applic TOPICAL DAILY PRN 12/06/22 12/22/22 History cream] INSULIN LISPRO (HumaLOG) [humaLOG] See Protocol SQ ACHS 12/06/22 12/22/22 History Insulin Glargine [Lantus Vial] 22 unit SQ HS 12/06/22 12/22/22 History L.acidoph,Paracasei, B.lactis 1 cap PO DAILY 12/06/22 12/22/22 History [Probiotic] Levothyroxine Sodium 88 mcg PO DAILY 12/06/22 12/22/22 History Loperamide [Imodium] 2 mg PO Q6HR PRN 12/06/22 12/22/22 History Magnesium Oxide [Mag-Ox] 800 mg PO BID 12/06/22 12/22/22 History Multivitamins, Thera [Multivitamin 1 tab PO DAILY 12/06/22 12/22/22 History (formulary)] Simethicone 180 mg PO 5XD PRN 12/06/22 12/22/22 History Simvastatin 40 mg PO HS 12/06/22 12/22/22 History Sodium Bicarbonate Tab 1,300 mg PO BID 12/06/22 12/22/22 History Tamsulosin HCl [Flomax] 0.4 mg PO HS 12/06/22 12/22/22 History Turmeric Root Extract [Turmeric] 500 mg PO DAILY 12/06/22 12/22/22 History Ubidecarenone [Coenzyme Q10] 200 mg PO DAILY 12/06/22 12/22/22 History mycophenolate mofetiL [Cellcept] 1,000 mg PO BID 12/06/22 12/22/22 History Aspirin 81 mg PO DAILY #30 tab 12/09/22 12/22/22 Rx Isosorbide Mononitrate ER [Imdur] 30 mg PO DAILY #30 tab 12/09/22 12/22/22 Rx Metoprolol Succinate (ER) [Toprol 25 mg PO DAILY #30 tab 12/09/22 12/22/22 Rx XL] Tacrolimus [Prograf] 2 mg PO BID cap 12/09/22 12/22/22 Rx Allergies Allergy/AdvReac Type Severity Reaction Status Date / Time allopurinol AdvReac Unknown Verified 12/22/22 13:36 Physical Exam Vitals: Vital Signs Temp Pulse Pulse Resp BP BP Pulse Ox 12/23/22 17:17 99.9 F H 95 18 128/51 98 12/23/22 15:48 101.5 F H 92 18 131/86 100 12/23/22 11:15 86 18 122/74 100 12/23/22 10:41 99.1 F 85 20 124/78 99 07/05/23 08:01 99.7 F H 89 16 114/78 99 12/23/22 04:55 82 18 100/55 100 12/22/22 23:21 100.3 F H 12/22/22 22:01 92 18 109/64 98 12/22/22 19:58 101 H 18 116/65 97 Intake and Output 12/23/22 12/23/22 12/23/22 06:59 14:59 22:59 Other: Weight 73.482 kg - Constitutional General appearance: average body habitus, no acute distress - EENT Eyes: no anicteric sclerae, no EOMI ENT: hearing grossly normal - Neck Neck: no lymphadenopathy - Respiratory Respiratory: bilateral: CTA - Cardiovascular Rhythm: regular Heart sounds: normal: S1, S2 Abnormal Heart Sounds: no systolic murmur, no diastolic murmur, no rub, no S3 Gallop, no S4 Gallop, no click, no other - Gastrointestinal General gastrointestinal: no distended, soft, tenderness Localized gastrointestinal: tender: RUQ - Integumentary Integumentary: no cyanotic, no jaundiced, no rash - Neurologic grossly intact - Musculoskeletal Musculoskeletal: strength equal bilaterally - Psychiatric Psychiatric: A&O x's 3, appropriate affect, intact judgment & insight Results CBC & Chem 7: 12/23/22 07:44 12/23/22 07:44 Labs: Abnormal Lab Results - Last 24 Hours (Table) 12/23/22 12/23/22 12/23/22 Range/Units 07:44 07:44 07:57 RBC 3.84 L (4.40-5.60) X 10*6/uL Hgb 11.0 L (12.0-15.0) d/dL Hct 34.5 L (39.6-50.0) % MCHC 31.9 L (32.0-37.0) d/dL MPV 9.4 L (9.5-12.2) FL ESR (0-15) mm/hr Sodium 133 L (135-145) mmol/L BUN 34.3 H (9.0-27.0) mg/dL Est GFR (CKD-EPI) 51 L (>=60) BUN/Creatinine Ratio 22.87 H (12.00-20.00) Ratio Glucose 173 H (70-110) mg/dL POC Glucose (mg/dL) 172 H (70-110) mg/dL C-Reactive Protein 18.60 H (0.00-0.80) mg/dL 12/23/22 12/23/22 12/23/22 Range/Units 11:52 12:28 17:13 RBC (4.40-5.60) X 10*6/uL Hgb (12.0-15.0) d/dL Hct (39.6-50.0) % MCHC (32.0-37.0) d/dL MPV (9.5-12.2) FL ESR 37 H (0-15) mm/hr Sodium (135-145) mmol/L BUN (9.0-27.0) mg/dL Est GFR (CKD-EPI) (>=60) BUN/Creatinine Ratio (12.00-20.00) Ratio Glucose (70-110) mg/dL POC Glucose (mg/dL) 226 H 136 H (70-110) mg/dL C-Reactive Protein (0.00-0.80) mg/dL 12/23/22 Range/Units 18:35 RBC (4.40-5.60) X 10*6/uL Hgb (12.0-15.0) d/dL Hct (39.6-50.0) % MCHC (32.0-37.0) d/dL MPV (9.5-12.2) FL ESR (0-15) mm/hr Sodium (135-145) mmol/L BUN (9.0-27.0) mg/dL Est GFR (CKD-EPI) (>=60) BUN/Creatinine Ratio (12.00-20.00) Ratio Glucose (70-110) mg/dL POC Glucose (mg/dL) 295 H (70-110) mg/dL C-Reactive Protein (0.00-0.80) mg/dL Chest x-ray: report reviewed CT scan - abdomen: report reviewed CT scan - pelvis: report reviewed Assessment and Plan (1) Liver mass Current Visit: Yes Status: Acute Priority: High Code(s): R16.0 - HEPATOMEGALY, NOT ELSEWHERE CLASSIFIED SNOMED Code(s): 486334561 (2) UTI (urinary tract infection) Current Visit: Yes Status: Acute Priority: Medium Code(s): N39.0 - URINARY TRACT INFECTION, SITE NOT SPECIFIED SNOMED Code(s): 10520087 Plan: Liver mass: -CT abdomen and pelvis revealed large 8.7 cm ill-defined mass within the liver suspicious for neoplasm. Discussed findings in detail with patient and family -Bilirubin elevated at 2.4. AST and ALT WNL. ALP elevated at 157. -CT chest ordered for further staging -IR consulted for evaluation for liver biopsy -Tumor markers ordered -Patient states he lives in [place] and is requesting upon discharge, his records to be forwarded to his primary care physician so he can be referred to a local oncologist -Patient is agreeable with plan and is agreeable to proceed with biopsy UTI: -UA showed hematuria and likely UTI. Patient has been started on cefepime. T max 101.4. Blood cultures and urine cultures pending -Creatinine 1.7. WBC 7.9, hemoglobin 11.8, platelets 237,000. -ID following
[2022-12-23 19:57] LABS: Cancer Antigen 19-9 6.3 U/mL (0.0-34.9); Carcinoembryonic Antigen <2.0 ng/mL (0.0-4.9)
[2022-12-23 20:15] LABS: Glucose,Whole Blood 348 mg/dL (70-110)
[2022-12-23 20:28] LABS: Alpha Fetoprotein, Tumor Mkr <3.00 ng/mL (0.00-7.90)
[2022-12-23] MEDS: INSULIN DETEMIR (LEVEMIR) 100 UNIT/ML SYR SQ SCH (21:18)
[2022-12-23] MEDS: TAMSULOSIN 0.4 MG CAP.ER.24H PO SCH (21:19)
[2022-12-23 21:20] LABS: Glucose,Whole Blood 305 mg/dL (70-110)
--- NOTE | 2022-12-23 21:21 | PN ---
PROGRESS NOTE DATE OF SERVICE: 12/23/2022 SUBJECTIVE: This is a 67-year-old gentleman, who was admitted with dysuria and hematuria, is being evaluated for UTI. The patient also had abdominal and pelvis CAT scan, which showed a large 8.7 cm ill-defined mass, suspicious for neoplasm. Workup is underway. PAST MEDICAL HISTORY: Reviewed. REVIEW OF SYSTEMS: Fourteen-point review is negative except as mentioned earlier. CURRENT MEDICATIONS: Reviewed include cefepime. Doses and rest of the medications are reviewed. PHYSICAL EXAMINATION: VITAL SIGNS: Pulse is 85, blood pressure 124/70, respirations 28. HEENT: Conjunctivae are normal. NECK: No jugular venous distention. CARDIOVASCULAR: S1 and S2 muffled. RESPIRATORY: Breath sounds diminished at the bases. ABDOMEN: Soft. NERVOUS SYSTEM: Nonfocal. LABORATORY DATA: WBC 8.3, hemoglobin 11.6. ESR is 37. ASSESSMENT: 1. Acute urinary tract infection with recurrence of symptoms with possible sepsis present on admission. 2. 8.7 ill-defined mass in the liver, rule out malignancy versus infection. 3. History of renal transplantation. 4. Immunosuppressed. 5. Chronic kidney disease, stage 3. 6. Diabetes mellitus, type 1. 7. History of IgA nephropathy. RECOMMENDATIONS: Recommend to continue current medications. Continue symptomatic treatment. Continue the antibiotics. Otherwise, even the patient might require a biopsy or other workup at some point. COVID is negative. We will closely follow with Dr. Doran and as well as Dr. Saucedo from Hematology/Oncology. Guarded prognosis because of multiple complex medical issues. Ultrasound of the liver. Further recommendations to follow. Dr. Pastor, Nephrology, is following from the transplant point of view. CT chest also has been ordered. MMODL / IJN: [id number] /
--- NOTE | 2022-12-23 23:14 | P.PN ---
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 On today's evaluation that is 12/23/2022 patient did have a low-grade fever of 99.7 this morning patient is feeling slightly better he is breathing comfortably denies any chest pain or shortness with no cough no nausea vomiting no abdominal pain and urinary symptoms has improved Objective - Vital Signs Vital signs: Vital Signs Temp 99.1 F 12/23/22 10:41 Pulse 85 12/23/22 10:41 Resp 20 12/23/22 10:41 BP 124/78 12/23/22 10:41 Pulse Ox 99 12/23/22 10:41 FiO2 Intake & Output 12/22/22 12/23/22 12/23/22 18:59 06:59 18:59 Weight 73.482 kg - Exam GENERAL DESCRIPTION: Elderly male lying in bed in no distress RESPIRATORY SYSTEM: Unlabored breathing , decreased breath sounds at bases HEART: S1 S2 regular rate and rhythm ,no loud murmurs ABDOMEN: Soft , no tenderness EXTREMITIES: No edema feet - Labs CBC & Chem 7: 12/23/22 07:44 12/23/22 07:44 Labs: Abnormal Lab Results - Last 24 Hours (Table) 12/22/22 12/23/22 12/23/22 Range/Units 18:20 07:44 07:44 RBC 3.84 L (4.40-5.60) X 10*6/uL Hgb 11.0 L (12.0-15.0) d/dL Hct 34.5 L (39.6-50.0) % MCHC 31.9 L (32.0-37.0) d/dL MPV 9.4 L (9.5-12.2) FL Sodium 133 L (135-145) mmol/L BUN 34.3 H (9.0-27.0) mg/dL Est GFR (CKD-EPI) 51 L (>=60) BUN/Creatinine Ratio 22.87 H (12.00-20.00) Ratio Glucose 173 H (70-110) mg/dL POC Glucose (mg/dL) 201 H (70-110) mg/dL C-Reactive Protein 18.60 H (0.00-0.80) mg/dL 12/23/22 Range/Units 07:57 RBC (4.40-5.60) X 10*6/uL Hgb (12.0-15.0) d/dL Hct (39.6-50.0) % MCHC (32.0-37.0) d/dL MPV (9.5-12.2) FL Sodium (135-145) mmol/L BUN (9.0-27.0) mg/dL Est GFR (CKD-EPI) (>=60) BUN/Creatinine Ratio (12.00-20.00) Ratio Glucose (70-110) mg/dL POC Glucose (mg/dL) 172 H (70-110) mg/dL C-Reactive Protein (0.00-0.80) mg/dL Assessment and Plan (1) Sepsis Current Visit: Yes Status: Acute Code(s): A41.9 - SEPSIS, UNSPECIFIED ORGANISM SNOMED Code(s): 05028698 (2) UTI (urinary tract infection) Current Visit: Yes Status: Acute Priority: Medium Code(s): N39.0 - URINARY TRACT INFECTION, SITE NOT SPECIFIED SNOMED Code(s): 86479201 Plan: 1patient was in the hospital with sepsis in this patient did have fever tachycardia source is likely UTI in this patient with a history of renal transpl ant on immunosuppressive medication recently did have a similar episode and the patient responded to the Rocephin and cultures were negative with recent admission to the hospital and antibiotic exposure will need to cover for the resistant gram-negative 2CT abdominal pelvis did shows abnormality in the liver concerning for possible neoplasm however keeping in mind the patient did have a fever we will have to make sure not dealing with a liver abscess 3-patient benefit from transfer to tertiary care for biopsy of this liver abnormality as well as culture this was discussed in detail with admitting physician 4-for now continue with the cefepime and monitor clinical course closely Time with Patient: Greater than 30
[2022-12-24 06:14] LABS: Glucose,Whole Blood 76 mg/dL (70-110)
[2022-12-24] MEDS: INSULIN ASPART (NovoLOG) 100 UNIT/ML VIAL SQ SCH ×7 (06:15→19:56)
--- NOTE | 2022-12-24 08:00 | US ---
EXAMINATION TYPE: US liver DATE OF EXAM: 12/24/2022 COMPARISON: CT abdomen pelvis 12/22/2022 CLINICAL INDICATION: Male, 67 years old with history of RUQ tenderness, liver mass; TECHNIQUE: Multiple sonographic images of the right upper quadrant are obtained. FINDINGS: EXAM MEASUREMENTS: Liver Length: 15.8 cm Gallbladder Wall: 0.3 cm CBD: 0.8 cm Right Kidney: 12.6 x 4.6 x 5.6 cm Pancreas: visualized portions wnl, tail obscured by overlying midline bowel gas Liver: 9.4 x 8.0 x 9.5cm solid vascular mass right lobe Gallbladder: borderline hydropic, irregular wall thickening Evidence for sonographic Coleman's sign: no CBD: dilated Right Kidney: atrophic upper [place] kidney not well seen, transplant pelvic kidney appears wnl Visualized portions of the pancreas are within normal limits. The tail is obscured by overlying bowel gas. There is a dominant well-defined circumscribed mass within the right hepatic lobe measuring up to 9.5 cm. This demonstrates heterogenous echotexture with internal vascularity demonstrated. Hydropic gallbladder with minimal wall thickening. Per english teacher, negative sonographic Coleman sign. No cholelithiasis. Common bile duct is mildly dilated measuring up to 0.8 cm. The upper [place] right kidne y is atrophic and poorly visualized. Transplanted pelvic kidney appears unremarkable without evidence of hydronephrosis, cholelithiasis, or solid mass. Cortical medullary differentiation is maintained. IMPRESSION: 1. Dominant right hepatic lobe 9.5 cm vascular mass concerning for primary malignancy. 2. Mild dilatation of the common bile duct. This could be further evaluated with MRCP as clinically indicated. 3. Atrophic upper [place] kidney with unremarkable appearance of the pelvic transplant kidney.
[2022-12-24] MEDS: ASPIRIN 81 MG PO SCH (09:31)
[2022-12-24] MEDS: METOPROLOL SUCCINATE (ER) 25 MG TAB.ER.24H PO SCH (09:41)
[2022-12-24] MEDS: ISOSORBIDE MONONITRATE ER 30 MG TAB.ER.24H PO SCH (09:42)
[2022-12-24] MEDS: NON FORMULARY DRUG (Ubidecarenone [Coenzyme Q10] 200 MG Capsule) PO SCH (09:44)
[2022-12-24] MEDS: COLCHICINE 0.6 MG EACH PO SCH (09:44)
[2022-12-24] MEDS: FAMOTIDINE 20 MG TAB PO SCH (09:44)
[2022-12-24] MEDS: LEVOTHYROXINE 88 MCG TAB PO SCH (09:44)
[2022-12-24] MEDS: MULTIVITAMINS, THERA 1 EACH TAB PO SCH (09:44)
[2022-12-24] MEDS: TACROLIMUS 1 MG CAP PO SCH ×2 (09:44→19:57)
[2022-12-24] MEDS: MAGNESIUM OXIDE 400 MG TAB PO SCH ×2 (09:44→19:57)
[2022-12-24] MEDS: NON FORMULARY DRUG (L.Acidoph,Paracasei, B.Lactis [Probiotic] 1 EACH Capsule) PO SCH (09:49)
[2022-12-24 11:54] LABS: Basophils # (A) 0.03 X 10*3/uL (0.00-0.10); Basophils % (A) 0.5 %; Eosinophils # (A) 0.15 X 10*3/uL (0.04-0.35); Eosinophils % (A) 2.6 %; HCT 30.9 % (39.6-50.0); HGB 10.1 d/dL (12.0-15.0); Lymphocytes # (A) 1.24 X 10*3/uL (0.90-5.00); Lymphocytes % (A) 21.9 %; MCH 29.4 pg (27.0-32.0); MCHC 32.7 d/dL (32.0-37.0); MCV 90.1 FL (80.0-97.0); Mean Platelet Volume 9.6 FL (9.5-12.2); Monocytes # (A) 0.73 X 10*3/uL (0.20-1.00); Monocytes % (A) 12.9 %; NRBC Per 100 WBC 0 X 10*3/uL (0.00-0.01); Neutrophils % (A) 61.7 %; Platelet Count 226 X 10*3/uL (140-440); RBC 3.43 X 10*6/uL (4.40-5.60); RDW 13.6 % (11.5-14.5); WBC 5.67 X 10*3/uL (4.50-10.00)
[2022-12-24 12:19] VITALS: BMI 23.2
[2022-12-24] MEDS: CEFEPIME 2 GM in SODIUM CHLORIDE 0.9% 100 ML IVPB SCH ×2 (12:27→23:57)
[2022-12-24] MEDS: SODIUM BICARBONATE TAB 650 MG TAB PO SCH ×2 (12:31→21:01)
[2022-12-24 12:40] LABS: BUN/Creat Ratio 22.62 Ratio (12.00-20.00); Blood Urea Nitrogen 29.4 mg/dL (9.0-27.0); Calcium 9.3 mg/dL (8.7-10.3); Chloride 103 mmol/L (96-109); Glucose 66 mg/dL (70-110); Potassium 4.9 mmol/L (3.5-5.5); Sodium 136 mmol/L (135-145)
--- NOTE | 2022-12-24 12:45 | P.PN ---
Subjective Patient is seen for follow-up for acute kidney injury. Underlying history of donor renal transplant for IgA nephropathy about 15 years ago. Admitted with complaints of low-grade fever increased weakness and maintained on IV antibiotics and IV fluids. CT of the abdomen showed mass in the liver which is being evaluated by oncology. Unclear whether infectious or malignant origin. Complaining of blood sugars being significantly elevated at about 400 because of diet being ordered as renal diet. No complaints of chest pain or shortness of breath Patient has been voiding Maintained on IV fluids with serum creatinine down to 1.3 from 1.7 on initial admission. Objective - Vital Signs Vital signs: Vital Signs Temp 99.1 F 12/24/22 08:00 Pulse 81 12/24/22 08:00 Resp 16 12/24/22 08:00 BP 103/68 12/24/22 08:00 Pulse Ox 97 12/24/22 08:00 FiO2 Intake & Output 12/23/22 12/24/22 12/24/22 18:59 06:59 18:59 Weight 73.482 kg 73.482 kg Other: Voiding Method Toilet Toilet # Voids 2 - Exam Patient is awake, comfortable, in no acute distress Examination of the heart S1 and S2 Examination of the lungs bilateral breath sounds are heard. Allograft is nontender Abdomen is soft nontender Examination of lower extremities shows no edema DAIRY NUTRITION SPECIALIST exam grossly intact - Labs CBC & Chem 7: 12/24/22 06:53 12/24/22 06:53 Labs: Abnormal Lab Results - Last 24 Hours (Table) 12/23/22 12/23/22 12/23/22 Range/Units 12:28 17:13 18:35 RBC (4.40-5.60) X 10*6/uL Hgb (12.0-15.0) d/dL Hct (39.6-50.0) % ESR 37 H (0-15) mm/hr BUN (9.0-27.0) mg/dL BUN/Creatinine Ratio (12.00-20.00) Ratio Glucose (70-110) mg/dL POC Glucose (mg/dL) 136 H 295 H (70-110) mg/dL 12/23/22 12/23/22 12/24/22 Range/Units 20:15 21:19 06:53 RBC 3.43 L (4.40-5.60) X 10*6/uL Hgb 10.1 L (12.0-15.0) d/dL Hct 30.9 L (39.6-50.0) % ESR (0-15) mm/hr BUN (9.0-27.0) mg/dL BUN/Creatinine Ratio (12.00-20.00) Ratio Glucose (70-110) mg/dL POC Glucose (mg/dL) 348 H 305 H (70-110) mg/dL 12/24/22 Range/Units 06:53 RBC (4.40-5.60) X 10*6/uL Hgb (12.0-15.0) d/dL Hct (39.6-50.0) % ESR (0-15) mm/hr BUN 29.4 H (9.0-27.0) mg/dL BUN/Creatinine Ratio 22.62 H (12.00-20.00) Ratio Glucose 66 L (70-110) mg/dL POC Glucose (mg/dL) (70-110) mg/dL Microbiology - Last 24 Hours (Table) 12/22/22 18:35 Urine Culture - Final Urine,Voided Assessment and Plan Assessment: 1. Acute kidney injury associated with underlying infection. Component of hypovolemia as well, currently improved with IV hydration. CT of the abdomen was unremarkable for the transplant kidney. UA shows WBCs 15 with trace blood and 1+ protein. Prograf level was also elevated on 12/06/2022 and dose was decreased at that time. Repeat Prograf l evel is pending 2. UTI with urine culture not growing any specific organism during his last admission but significantly improved with IV antibiotics. Patient is Being followed by ID 3. 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 4. Volume depletion 5. Elevated tacrolimus level last admission status post decreased dose. Repeat Trough level drawn this morning. Plan: continue IV fluids Follow-up on repeat tacrolimus level Continue antibiotics as per ID Continue current dose of immunosuppressive medications. Await workup of liver mass
[2022-12-24 16:31] LABS: Glucose,Whole Blood 216 mg/dL (70-110)
[2022-12-24 19:16] LABS: Glucose,Whole Blood 230 mg/dL (70-110)
[2022-12-24] MEDS: TAMSULOSIN 0.4 MG CAP.ER.24H PO SCH (19:57)
[2022-12-24] MEDS: ATORVASTATIN 20 MG TAB PO SCH (19:58)
--- NOTE | 2022-12-24 19:59 | P.PN ---
Subjective Progress Note Date: 12/24/22 This is a 67-year-old male who came to the hospital with right upper and lower quadrant diffuse abdominal pain along with fevers and not feeling well. Patient was found to have a large liver mass most likely neoplasm and oncology following recommending interventional radiology consultation for possible liver biopsy. Per interventional radiology department unable to obtain as patient took an aspirin one day prior and must be 7 days with no aspirin or blood thinners. Patient has a past medical history of kidney transplant back in 2004 after peritoneal dialysis. Patient has a known diabetic and normally lives in [place] although was up here vacationing when developing the symptoms. Patient is insulin-dependent and recommend continue with Accu-Cheks before meals and at bedtime. Oncology and infectious disease following patient is maintained on antibiotics and currently afebrile and recommending transfer to tertiary treatment center of [facility] where patient received care previously and patient agrees with transfer. Review of systems: Constitutional: No reports of fatigue, fever, or chills Cardiovascular: No reports of chest pain or palpitations Respiratory: No reports of shortness of breath or cough GI: n released o reports of nausea, no reports of vomiting, reports diffuse abdominal pain on the right : No reports of dysuria or retention Neurovascular: reports of generalized weakness All medications have been reviewed PHYSICAL EXAMINATION: GENERAL: The patient is alert and oriented x4, Well developed, well nourished. HEENT: Pupils are round and equally reacting to light. EOMI. no scleral icterus. No conjunctival pallor. Normocephalic, atraumatic. No pharyngeal erythema. No thyromegaly. CARDIOVASCULAR: S1 and S2 muffled PULMONARY: diminished breath sounds bilaterally with no wheezing or rhonchi noted. ABDOMEN: soft. Nontender on exam. non-distended, normoactive bowel sounds. No palpable organomegaly. MUSCULOSKELETAL: No joint swelling or deformity. EXTREMITIES: No cyanosis, clubbing, or pedal edema. NEUROLOGICAL: Gross neurological examination did not reveal any focal deficits. Diffuse weakness SKIN: No rashes. Assessment: Acute urinary tract infection with recurrence of symptoms with possible sepsis, present on admission 8.7 cm ill-defined mass in the liver, rule out malignancy versus infection History of renal transplantation in 2004 Chronic kidney disease, stage III Immunosuppressed Diabetes mellitus, type I, uncontrolled with hyperglycemia History of IgA nephropathy GI prophylaxis DVT prophylaxis Full code Plan: Recommend to continue with current medications and management infectious disease and oncology following. Consultations have discussed further and recommended transfer to tertiary treatment center and transfer was initiated accepted at [facility] by Dr. Cedrick Maddox. Patient to be evaluated by medicine to discuss liver biopsy and treatment plan moving forward. Infectious disease following an maintained on antibiotics in the form of cefepime with concerns initially of urinary tract infection. Case management verified no insurance authorization was required for transfer. Patient is agreeable and currently awaiting a bed. Recommend continue with Accu-Cheks before meals and at bedtime and sliding scale along with long-acting insulin as scheduled. Prognosis is guarded The impression and plan of care has been dictated by Mary Darnell, nurse practitioner as directed. Dr. Susan MD I have performed a history and examination and MDM of this patient, discussed the same with the dictator, and agree with the dictator's assessment and plan as written ,documented as a scribe. Based on total visit time, I have performed more than 50% of the visit. Any additional findings or plans will be noted. Objective - Vital Signs Vital signs: Vital Signs Temp 99.0 F 12/24/22 14:00 Pulse 89 12/24/22 14:00 Resp 18 12/24/22 14:00 BP 115/72 12/24/22 14:00 Pulse Ox 99 12/24/22 14:00 FiO2 Intake & Output 12/24/22 12/24/22 12/25/22 06:59 18:59 06:59 Intake Total 240 Balance 240 Weight 73.482 kg Intake: Oral 240 Other: Voiding Method Toilet Toilet # Voids 2 1 - Labs CBC & Chem 7: 12/24/22 06:53 12/24/22 06:53 Labs: Abnormal Lab Results - Last 24 Hours (Table) 12/23/22 12/23/22 12/24/22 Range/Units 20:15 21:19 06:53 RBC 3.43 L (4.40-5.60) X 10*6/uL Hgb 10.1 L (12.0-15.0) d/dL Hct 30.9 L (39.6-50.0) % BUN (9.0-27.0) mg/dL BUN/Creatinine Ratio (12.00-20.00) Ratio Glucose (70-110) mg/dL POC Glucose (mg/dL) 348 H 305 H (70-110) mg/dL 12/24/22 12/24/22 12/24/22 Range/Units 06:53 16:25 19:14 RBC (4.40-5.60) X 10*6/uL Hgb (12.0-15.0) d/dL Hct (39.6-50.0) % BUN 29.4 H (9.0-27.0) mg/dL BUN/Creatinine Ratio 22.62 H (12.00-20.00) Ratio Glucose 66 L (70-110) mg/dL POC Glucose (mg/dL) 216 H 230 H (70-110) mg/dL Microbiology - Last 24 Hours (Table) 12/22/22 10:26 Blood Culture - Preliminary Blood 12/22/22 10:26 Blood Culture - Preliminary Blood 12/22/22 18:35 Urine Culture - Final Urine,Voided
--- NOTE | 2022-12-24 20:24 | P.PN ---
Subjective Progress Note Date: 12/24/22 Principal diagnosis: liver mass At today's visit patient is resting comfortably in bed eating lunch. He reports feeling well. He denies nausea vomiting diarrhea and abdominal pain. Denies fever and chills. No other reported complaints at this time Objective - Vital Signs Vital signs: Vital Signs Temp 99.0 F 12/24/22 14:00 Pulse 89 12/24/22 14:00 Resp 18 12/24/22 14:00 BP 115/72 12/24/22 14:00 Pulse Ox 99 12/24/22 14:00 FiO2 Intake & Output 12/24/22 12/24/22 12/25/22 06:59 18:59 06:59 Intake Total 240 Balance 240 Weight 73.482 kg Intake: Oral 240 Other: Voiding Method Toilet Toilet # Voids 2 1 - Constitutional General appearance: Present: average body habitus, no acute distress - EENT Eyes: Present: anicteric sclerae, EOMI ENT: Present: hearing grossly normal - Respiratory Details: breathing is even and unlabored - Cardiovascular Details: skin warm and dry - Gastrointestinal General gastrointestinal: Present: soft. Absent: tenderness - Integumentary Integumentary: Absent: cyanotic, rash - Neurologic Neurologic Comment(s): grossly intact - Musculoskeletal Musculoskeletal: Present: strength equal bilaterally - Psychiatric Psychiatric: Present: A&O x's 3, appropriate affect, intact judgment & insight - Labs CBC & Chem 7: 12/24/22 06:53 12/24/22 06:53 Labs: Abnormal Lab Results - Last 24 Hours (Table) 12/23/22 12/23/22 12/24/22 Range/Units 20:15 21:19 06:53 RBC 3.43 L (4.40-5.60) X 10*6/uL Hgb 10.1 L (12.0-15.0) d/dL Hct 30.9 L (39.6-50.0) % BUN (9.0-27.0) mg/dL BUN/Creatinine Ratio (12.00-20.00) Ratio Glucose (70-110) mg/dL POC Glucose (mg/dL) 348 H 305 H (70-110) mg/dL 12/24/22 12/24/22 12/24/22 Range/Units 06:53 16:25 19:14 RBC (4.40-5.60) X 10*6/uL Hgb (12.0-15.0) d/dL Hct (39.6-50.0) % BUN 29.4 H (9.0-27.0) mg/dL BUN/Creatinine Ratio 22.62 H (12.00-20.00) Ratio Glucose 66 L (70-110) mg/dL POC Glucose (mg/dL) 216 H 230 H (70-110) mg/dL Microbiology - Last 24 Hours (Table) 12/22/22 10:26 Blood Culture - Preliminary Blood 12/22/22 10:26 Blood Culture - Preliminary Blood 12/22/22 18:35 Urine Culture - Final Urine,Voided - Imaging and Cardiology CT scan - chest: report reviewed US - abdomen: report reviewed Assessment and Plan (1) Liver mass Current Visit: Yes Status: Acute Priority: High Code(s): R16.0 - HEPATOMEGALY, NOT ELSEWHERE CLASSIFIED SNOMED Code(s): 872451480 (2) UTI (urinary tract infection) Current Visit: Yes Status: Acute Priority: Medium Code(s): N39.0 - URINARY TRACT INFECTION, SITE NOT SPECIFIED SNOMED Code(s): 40299165 Plan: Liver mass: -CT abdomen and pelvis revealed large 8.7 cm ill-defined mass within the liver suspicious for neoplasm. Discussed findings in detail with patient and family -Bilirubin elevated at 2.4. AST and ALT WNL. ALP elevated at 157. -CT chest ordered for further staging, revealing no evidence for pulmonary n odule or suspicious finding within the thorax to suggest metastatic disease. Large hepatic mass as seen on CT from 12/22/2022. Atrophic [place] kidneys and left adrenal lipid rich adenoma. Liver ultrasound revealed dominant right hepatic lobe 9.5 cm vascular mass concerning for malignancy and mild dilatation of the common bile duct. Findings of imaging was discussed with patient. -IR consulted for evaluation for liver biopsy, however due to admin of aspirin interventional radiologist is requesting a 6 day hold on aspirin prior to biopsy. -Tumor markers WNL -Patient lives in [place] and originally had requested all records to be transferred to his PCP in [place] so he can be referred to an oncologist, however, patient is now stating that he would prefer to stay in [place] and get his treatment as he believes he will get better care here. Spoke with internal medicine today and per ID they are requesting for patient to be transferred to [facility] where his kidney transplant was performed. Spoke to patient in regards to this today and he is in agreement with this plan and will proceed with oncological workup/care at . Informed patient that if he wants to proceed with care locally in [place] that he can contact our office to establish care upon discharge. UTI: -UA showed hematuria and likely UTI. Continues on cefepime. Blood cultures and urine culture negative thus far. -Creatinine improved, 1.3 today. WBC 5.6, hemoglobin 10.1, platelets 226,000. -ID following
[2022-12-24] MEDS ORDERED: INSULIN DETEMIR (LEVEMIR) 100 UNIT/ML SYR SQ SCH (21:00)
[2022-12-25 06:12] LABS: Glucose,Whole Blood 102 mg/dL (70-110)
[2022-12-25] MEDS: INSULIN ASPART (NovoLOG) 100 UNIT/ML VIAL SQ SCH ×7 (06:13→18:41)
[2022-12-25] MEDS: ASPIRIN 81 MG PO SCH (07:45)
[2022-12-25 08:48] LABS: Basophils # (A) 0 X 10*3/uL (0.00-0.10); Basophils % (A) 0 %; Eosinophils # (A) 0.15 X 10*3/uL (0.04-0.35); Eosinophils % (A) 2.9 %; HCT 31.9 % (39.6-50.0); HGB 10.6 d/dL (12.0-15.0); Lymphocytes # (A) 1.11 X 10*3/uL (0.90-5.00); Lymphocytes % (A) 21.6 %; MCH 29.1 pg (27.0-32.0); MCHC 33.2 d/dL (32.0-37.0); MCV 87.6 FL (80.0-97.0); Mean Platelet Volume 9.2 FL (9.5-12.2); Monocytes # (A) 0.72 X 10*3/uL (0.20-1.00); NRBC Per 100 WBC 0 X 10*3/uL (0.00-0.01); Neutrophils # (A) 3.13 X 10*3/uL (1.80-7.70); Neutrophils % (A) 60.7 %; Platelet Count 231 X 10*3/uL (140-440); RBC 3.64 X 10*6/uL (4.40-5.60); RDW 13.2 % (11.5-14.5); WBC 5.15 X 10*3/uL (4.50-10.00)
[2022-12-25] MEDS: SODIUM BICARBONATE TAB 650 MG TAB PO SCH (09:02)
[2022-12-25] MEDS: ISOSORBIDE MONONITRATE ER 30 MG TAB.ER.24H PO SCH ×2 (09:02→09:08)
[2022-12-25] MEDS: METOPROLOL SUCCINATE (ER) 25 MG TAB.ER.24H PO SCH ×2 (09:02→09:09)
[2022-12-25] MEDS: MULTIVITAMINS, THERA 1 EACH TAB PO SCH (09:02)
[2022-12-25] MEDS: TACROLIMUS 1 MG CAP PO SCH (09:02)
[2022-12-25] MEDS: MAGNESIUM OXIDE 400 MG TAB PO SCH (09:02)
[2022-12-25] MEDS: COLCHICINE 0.6 MG EACH PO SCH (09:03)
[2022-12-25] MEDS: NON FORMULARY DRUG (Ubidecarenone [Coenzyme Q10] 200 MG Capsule) PO SCH (09:03)
[2022-12-25] MEDS: FAMOTIDINE 20 MG TAB PO SCH (09:03)
[2022-12-25] MEDS: NON FORMULARY DRUG (L.Acidoph,Paracasei, B.Lactis [Probiotic] 1 EACH Capsule) PO SCH (09:30)
[2022-12-25 09:53] LABS: BUN/Creat Ratio 21.75 Ratio (12.00-20.00); Blood Urea Nitrogen 26.1 mg/dL (9.0-27.0); Calcium 9.4 mg/dL (8.7-10.3); Carbon Dioxide 20.2 mmol/L (21.6-31.8); Chloride 100 mmol/L (96-109); Glucose 85 mg/dL (70-110); Magnesium 1.4 mg/dL (1.5-2.4); Potassium 4.6 mmol/L (3.5-5.5); Sodium 136 mmol/L (135-145)
[2022-12-25 12:29] LABS: Glucose,Whole Blood 221 mg/dL (70-110)
[2022-12-25] MEDS: CEFEPIME 2 GM in SODIUM CHLORIDE 0.9% 100 ML IVPB SCH (12:50)
[2022-12-25] MEDS: LEVOTHYROXINE 88 MCG TAB PO SCH (12:50)
[2022-12-25] MEDS: MAGNESIUM SULFATE-D5W PMX 1 GM in DEXTROSE/WATER 1 100ML.BAG IVPB SCH (15:31)
--- NOTE | 2022-12-25 16:18 | P.DS ---
Providers Date of admission: 12/22/22 12:54 Expected date of discharge: 12/25/22 Attending physician: Alexandru Holt MD Consults: 12/22/22 12:53 Consult Physician Urgent Consulting Provider: Moises Doran Consult Reason/Comments: Urinary tract infection Do you want consulting provider notified?: Yes Consult Physician Urgent Consulting Provider: Tequila Pastor Consult Reason/Comments: Renal insufficiency Do you want consulting provider notified?: Yes 12/23/22 10:13 Consult Physician Urgent Consulting Provider: Yariel Saucedo Consult Reason/Comments: liver mass Do you want consulting provider notified?: Yes Primary care physician: Physician Nonstaff Hospital Course: Final diagnosis Acute urinary tract infection with recurrence of symptoms with possible sepsis, present on admission. 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 patient has been accepted by Dr. Cedrick Maddox and will be evaluated regarding large liver mass. Patient to follow-up with kidney specialist outpatient as well as primary care provider. Total time taken is greater than 35 minutes. Hospital course This is a 67-year-old male who was recently admitted With fevers and concerns for possible acute urinary tract infection although cultures have been negative. Patient does have a history of kidney transplant and ultimate diabetes posttransplant and is type I maintained on insulin. Blood sugars have been elevated during hospitalization most likely due to the diet here as patient is very meticulous about his blood sugars and management and is extremely controlled in the outpatient setting. Patient continues to have some right abdominal diffuse pain and tenderness although stable at this point. Patient is continued on antibiotics in the form of cefepime with concerns of infection initially and being followed by infectious disease. Oncology evaluated the patient recommending tertiary transfer treatment center for further evaluation possible biopsy of the liver and overall care. Patient was accepted by Dr. Cedrick Maddox at [facility] and patient has received A bed. Patient is afebrile. Currently no reports of chest pain, shortness of breath, or palpitations. No reports of nausea or vomiting and patient is tolerating diet. Patient will be transferred to [facility] today. Physical exam: Gen: This is [id number] male who is awake, alert and oriented 3, well- developed, well-nourished heeNT: Head is atraumatic, normocephalic. Pupils equal, round. Sclerae is anicteric. NECK: Supple. No JVD. No lymphadenopathy. No thyromegaly. LUNGS: Clear to auscultation. No wheezes or rhonchi. No intercostal retractions. HEART: Regular rate and rhythm. No murmur. ABDOMEN: Soft. Bowel sounds are present. No masses. mild tenderness noted on the right upper and lower quadrants extremities: No pedal edema. No calf tenderness. NEUROLOGICAL: Patient is awake, alert and oriented x3. Cranial nerves 2 through 12 are grossly intact. Please refer to medication reconciliation sheet for a list of medications. The impression and plan of care has been dictated by Mary Darnell, Nurse Practitioner as directed. Dr. Susan MD I have performed a history and examination and MDM of this patient, discussed the same with the dictator, and agree with the dictator's assessment and plan as written ,documented as a scribe. Based on total visit time, I have performed more than 50% of the visit. Patient Condition at Discharge: Stable Plan - Discharge Summary New Discharge Prescriptions: No Action Tamsulosin HCl [Flomax] 0.4 mg PO HS Insulin Glargine [Lantus Vial] 22 unit SQ HS Simvastatin 40 mg PO HS Levothyroxine Sodium 88 mcg PO DAILY Fluocinonide 0.05% [Lidex 0.05% cream] 1 applic TOPICAL DAILY PRN PRN Reason: Rash Ubidecarenone [Coenzyme Q10] 200 mg PO DAILY INSULIN LISPRO (HumaLOG) [humaLOG] See Protocol SQ ACHS L.acidoph,Paracasei, B.lactis [Probiotic] 1 cap PO DAILY Tacrolimus [Prograf] 2 mg PO BID cap Aspirin 81 mg PO DAILY #30 tab mycophenolate mofetiL [Cellcept] 1,000 mg PO BID Sodium Bicarbonate Tab 1,300 mg PO BID Famotidine [Pepcid] 20 mg PO BID Simethicone 180 mg PO 5XD PRN PRN Reason: Bloating Loperamide [Imodium] 2 mg PO Q6HR PRN PRN Reason: Diarrhea Colchicine 0.6 mg PO DAILY Turmeric Root Extract [Turmeric] 500 mg PO DAILY Multivitamins, Thera [Multivitamin (formulary)] 1 tab PO DAILY Magnesium Oxide [Mag-Ox] 800 mg PO BID Isosorbide Mononitrate ER [Imdur] 30 mg PO DAILY #30 tab Metoprolol Succinate (ER) [Toprol XL] 25 mg PO DAILY #30 tab Discharge Medication List Colchicine 0.6 mg PO DAILY 12/06/22 [History] Famotidine [Pepcid] 20 mg PO BID 12/06/22 [History] Fluocinonide 0.05% [Lidex 0.05% cream] 1 applic TOPICAL DAILY PRN 12/06/22 [History] INSULIN LISPRO (HumaLOG) [humaLOG] See Protocol SQ ACHS 12/06/22 [History] Insulin Glargine [Lantus Vial] 22 unit SQ HS 12/06/22 [History] L.acidoph,Paracasei, B.lactis [Probiotic] 1 cap PO DAILY 12/06/22 [History] Levothyroxine Sodium 88 mcg PO DAILY 12/06/22 [History] Loperamide [Imodium] 2 mg PO Q6HR PRN 12/06/22 [History] Magnesium Oxide [Mag-Ox] 800 mg PO BID 12/06/22 [History] Multivitamins, Thera [Multivitamin (formulary)] 1 tab PO DAILY 12/06/22 [Histo ry] Simethicone 180 mg PO 5XD PRN 12/06/22 [History] Simvastatin 40 mg PO HS 12/06/22 [History] Sodium Bicarbonate Tab 1,300 mg PO BID 12/06/22 [History] Tamsulosin HCl [Flomax] 0.4 mg PO HS 12/06/22 [History] Turmeric Root Extract [Turmeric] 500 mg PO DAILY 12/06/22 [History] Ubidecarenone [Coenzyme Q10] 200 mg PO DAILY 12/06/22 [History] mycophenolate mofetiL [Cellcept] 1,000 mg PO BID 12/06/22 [History] Aspirin 81 mg PO DAILY #30 tab 12/09/22 [Rx] Isosorbide Mononitrate ER [Imdur] 30 mg PO DAILY #30 tab 12/09/22 [Rx] Metoprolol Succinate (ER) [Toprol XL] 25 mg PO DAILY #30 tab 12/09/22 [Rx] Tacrolimus [Prograf] 2 mg PO BID cap 12/09/22 [Rx] Follow up Appointment(s)/Referral(s): Nonstaff,Physician [Primary Care Provider] - 1-2 days
[2022-12-25 16:32] VITALS: BP 126/78; PULSE 77; RESP 16; TEMP 98
[2022-12-25 17:52] LABS: Glucose,Whole Blood 148 mg/dL (70-110)
--- NOTE | 2022-12-25 18:12 | P.PN ---
Subjective Progress Note Date: 12/24/22 Principal diagnosis: Fever Patient is a 67-year-old male with a past medical history significant for renal failure secondary to IgA nephropathy in this patient was status post donor renal transplant 15 years ago patient was recently admitted at [facility] middle of November 2022 complaining of weakness and burning of urine , Patient culture were negative clinic responded to Rocephin discharged on Ceftin now presenting back to the hospital with fever burning of urine patient did have a normal white count UA was positive cultures are pending he did have CT abdominal pelvis large 8.7 cm ill-defined mass within the liver suspicious for neoplasm transplant kidney appears unremarkable. On today's evaluation that is 12/24/2022 patient did have a low-grade fever 100 F around midnight and the patient is afebrile since then the patient is breathing comfortably no chest pain no shortness with a cough no nausea vomiting abdominal pain and no diarrhea Objective - Vital Signs Vital signs: Vital Signs Temp 100.0 F H 12/24/22 00:09 Pulse 88 12/24/22 00:09 Resp 17 12/24/22 00:09 BP 105/68 12/24/22 00:09 Pulse Ox 96 12/24/22 00:09 FiO2 Intake & Output 12/23/22 12/24/22 12/24/22 18:59 06:59 18:59 Weight 73.482 kg Other: Voiding Method Toilet # Voids 2 - Exam GENERAL DESCRIPTION: Elderly male lying in bed in no distress RESPIRATORY SYSTEM: Unlabored breathing , decreased breath sounds at bases HEART: S1 S2 regular rate and rhythm ,no loud murmurs ABDOMEN: Soft , no tenderness EXTREMITIES: No edema feet - Labs CBC & Chem 7: 12/25/22 05:34 12/25/22 05:34 Labs: Abnormal Lab Results - Last 24 Hours (Table) 12/23/22 12/23/22 12/23/22 Range/Units 07:44 07:44 07:57 RBC 3.84 L (4.40-5.60) X 10*6/uL Hgb 11.0 L (12.0-15.0) d/dL Hct 34.5 L (39.6-50.0) % MCHC 31.9 L (32.0-37.0) d/dL MPV 9.4 L (9.5-12.2) FL ESR (0-15) mm/hr Sodium 133 L (135-145) mmol/L BUN 34.3 H (9.0-27.0) mg/dL Est GFR (CKD-EPI) 51 L (>=60) BUN/Creatinine Ratio 22.87 H (12.00-20.00) Ratio Glucose 173 H (70-110) mg/dL POC Glucose (mg/dL) 172 H (70-110) mg/dL C-Reactive Protein 18.60 H (0.00-0.80) mg/dL 12/23/22 12/23/22 12/23/22 Range/Units 11:52 12:28 17:13 RBC (4.40-5.60) X 10*6/uL Hgb (12.0-15.0) d/dL Hct (39.6-50.0) % MCHC (32.0-37.0) d/dL MPV (9.5-12.2) FL ESR 37 H (0-15) mm/hr Sodium (135-145) mmol/L BUN (9.0-27.0) mg/dL Est GFR (CKD-EPI) (>=60) BUN/Creatinine Ratio (12.00-20.00) Ratio Glucose (70-110) mg/dL POC Glucose (mg/dL) 226 H 136 H (70-110) mg/dL C-Reactive Protein (0.00-0.80) mg/dL 12/23/22 12/23/22 12/23/22 Range/Units 18:35 20:15 21:19 RBC (4.40-5.60) X 10*6/uL Hgb (12.0-15.0) d/dL Hct (39.6-50.0) % MCHC (32.0-37.0) d/dL MPV (9.5-12.2) FL ESR (0-15) mm/hr Sodium (135-145) mmol/L BUN (9.0-27.0) mg/dL Est GFR (CKD-EPI) (>=60) BUN/Creatinine Ratio (12.00-20.00) Ratio Glucose (70-110) mg/dL POC Glucose (mg/dL) 295 H 348 H 305 H (70-110) mg/dL C-Reactive Protein (0.00-0.80) mg/dL Assessment and Plan (1) Sepsis Current Visit: Yes Status: Acute Code(s): A41.9 - SEPSIS, UNSPECIFIED ORGANISM SNOMED Code(s): 65823530 (2) UTI (urinary tract infection) Current Visit: Yes Status: Acute Priority: Medium Code(s): N39.0 - URINARY TRACT INFECTION, SITE NOT SPECIFIED SNOMED Code(s): 33335080 Plan: 1patient was in the hospital with sepsis in this patient did have fever tachycardia source is likely UTI in this patient with a history of renal transplant on immunosuppressive medication recently did have a similar episode and the patient responded to the Rocephin and cultures were negative with recent admission to the hospital and antibiotic exposure will need to cover for the resistant gram-negative 2CT abdominal pelvis did shows abnormality in the liver concerning for possible neoplasm however keeping in mind the patient did have a fever we will have to make sure not dealing with a liver abscess 3-patient benefit from transfer to tertiary care for biopsy of this liver abnormality as well as culture , Patient is currently waiting for transfer continue with the cefepime Time with Patient: Less than 30
--- NOTE | 2022-12-25 18:14 | P.PN ---
Subjective Progress Note Date: 12/25/22 Principal diagnosis: Fever Patient is a 67-year-old male with a past medical history significant for renal failure secondary to IgA nephropathy in this patient was status post donor renal transplant 15 years ago patient was recently admitted at [facility] middle of November 2022 complaining of weakness and burning of urine , Patient culture were negative clinic responded to Rocephin discharged on Ceftin now presenting back to the hospital with fever burning of urine patient did have a normal white count UA was positive cultures are pending he did have CT abdominal pelvis large 8.7 cm ill-defined mass within the liver suspicious for neoplasm transplant kidney appears unremarkable. On today's evaluation that is 12/25/2022 the patient is afebrile today the patient is breathing comfortably patient denies having any chest pain or shortness with a cough no nausea vomiting no abdominal pain no diarrhea has been reported Objective - Vital Signs Vital signs: Vital Signs Temp 98.3 F 12/25/22 07:35 Pulse 74 12/25/22 07:35 Resp 15 12/25/22 07:35 BP 104/68 12/25/22 07:35 Pulse Ox 97 12/25/22 07:35 FiO2 Intake & Output 12/24/22 12/25/22 12/25/22 18:59 06:59 18:59 Intake Total 240 120 Balance 240 120 Weight 73.482 kg Intake: Oral 240 120 Other: Voiding Method Toilet Toilet Toilet # Voids 1 2 1 # Bowel Movements 0 - Labs CBC & Chem 7: 12/25/22 05:34 12/25/22 05:34 Labs: Abnormal Lab Results - Last 24 Hours (Table) 12/24/22 12/24/22 12/25/22 Range/Units 16:25 19:14 05:34 RBC 3.64 L (4.40-5.60) X 10*6/uL Hgb 10.6 L (12.0-15.0) d/dL Hct 31.9 L (39.6-50.0) % MPV 9.2 L (9.5-12.2) FL Carbon Dioxide (21.6-31.8) mmol/L Anion Gap (4.00-12.00) mmol/L BUN/Creatinine Ratio (12.00-20.00) Ratio POC Glucose (mg/dL) 216 H 230 H (70-110) mg/dL Magnesium (1.5-2.4) mg/dL 12/25/22 12/25/22 Range/Units 05:34 12:18 RBC (4.40-5.60) X 10*6/uL Hgb (12.0-15.0) d/dL Hct (39.6-50.0) % MPV (9.5-12.2) FL Carbon Dioxide 20.2 L (21.6-31.8) mmol/L Anion Gap 15.80 H (4.00-12.00) mmol/L BUN/Creatinine Ratio 21.75 H (12.00-20.00) Ratio POC Glucose (mg/dL) 221 H (70-110) mg/dL Magnesium 1.4 L (1.5-2.4) mg/dL Microbiology - Last 24 Hours (Table) 12/22/22 10:26 Blood Culture - Preliminary Blood 12/22/22 10:26 Blood Culture - Preliminary Blood 12/23/22 16:45 Blood Culture - Preliminary Blood 12/23/22 16:30 Blood Culture - Preliminary Blood 12/22/22 18:35 Urine Culture - Final Urine,Voided Assessment and Plan (1) Sepsis Current Visit: Yes Status: Acute Code(s): A41.9 - SEPSIS, UNSPECIFIED ORGANISM SNOMED Code(s): 56944611 (2) UTI (urinary tract infection) Current Visit: Yes Status: Acute Priority: Medium Code(s): N39.0 - URINARY TRACT INFECTION, SITE NOT SPECIFIED SNOMED Code(s): 68662936 Plan: this was a telehealth visit 1patient was in the hospital with sepsis in this patient did have fever tachycardia source is likely UTI in this patient with a history of renal transplant on immunosuppressive medication recently did have a similar episode and the patient responded to the Rocephin and cultures were negative with recent admission to the hospital and antibiotic exposure will need to cover for the resistant gram-negative 2CT abdominal pelvis did shows abnormality in the liver concerning for possible neoplasm however keeping in mind the patient did have a fever we will have to make sure not dealing with a liver abscess 3-Patient did have a negative blood as well as urine cultures patient is currently waiting for transfer to [facility] continue with cefepime questions concern answered Time with Patient: Less than 30
--- NOTE | 2022-12-25 19:45 | P.PN ---
Subjective Patient is seen for follow-up for acute kidney injury. Underlying history of donor renal transplant for IgA nephropathy about 15 years ago. Admitted with complaints of low-grade fever increased weakness and maintained on IV antibiotics and IV fluids. CT of the abdomen showed mass in the liver which is being evaluated by oncology. Unclear whether infectious or malignant origin. Complaining of blood sugars being significantly elevated at about 400 because of diet with high carbs. No complaints of chest pain or shortness of breath Patient has been voiding Maintained on IV fluids with serum creatinine down to 1.3 from 1.7 on initial admission. Prograf level came back at 15.6 Objective - Vital Signs Vital signs: Vital Signs Temp 98.0 F 12/25/22 14:00 Pulse 77 12/25/22 14:00 Resp 16 12/25/22 14:00 BP 126/78 12/25/22 14:00 Pulse Ox 98 12/25/22 14:00 FiO2 Intake & Output 12/25/22 12/25/22 12/26/22 06:59 18:59 06:59 Intake Total 360 Balance 360 Intake: Oral 360 Other: Voiding Method Toilet Toilet # Voids 2 1 # Bowel Movements 0 - Exam Patient is awake, comfortable, in no acute distress Examination of the heart S1 and S2 Examination of the lungs bilateral breath sounds are heard. Allograft is nontender Abdomen is soft nontender Examination of lower extremities shows no edema [employer] exam grossly intact - Labs CBC & Chem 7: 12/25/22 05:34 12/25/22 05:34 Labs: Abnormal Lab Results - Last 24 Hours (Table) 12/25/22 12/25/22 12/25/22 Range/Units 05:34 05:34 12:18 RBC 3.64 L (4.40-5.60) X 10*6/uL Hgb 10.6 L (12.0-15.0) d/dL Hct 31.9 L (39.6-50.0) % MPV 9.2 L (9.5-12.2) FL Carbon Dioxide 20.2 L (21.6-31.8) mmol/L Anion Gap 15.80 H (4.00-12.00) mmol/L BUN/Creatinine Ratio 21.75 H (12.00-20.00) Ratio POC Glucose (mg/dL) 221 H (70-110) mg/dL Magnesium 1.4 L (1.5-2.4) mg/dL 12/25/22 Range/Units 17:48 RBC (4.40-5.60) X 10*6/uL Hgb (12.0-15.0) d/dL Hct (39.6-50.0) % MPV (9.5-12.2) FL Carbon Dioxide (21.6-31.8) mmol/L Anion Gap (4.00-12.00) mmol/L BUN/Creatinine Ratio (12.00-20.00) Ratio POC Glucose (mg/dL) 148 H (70-110) mg/dL Magnesium (1.5-2.4) mg/dL Microbiology - Last 24 Hours (Table) 12/22/22 10:26 Blood Culture - Preliminary Blood 12/22/22 10:26 Blood Culture - Preliminary Blood 12/23/22 16:45 Blood Culture - Preliminary Blood 12/23/22 16:30 Blood Culture - Preliminary Blood Assessment and Plan Assessment: 1. Acute kidney injury associated with underlying infection. Component of hypovolemia as well, currently improved with IV hydration. CT of the abdomen was unremarkable for the transplant kidney. UA shows WBCs 15 with trace blood and 1+ protein. Prograf level was also elevated on 12/06/2022 and dose was decreased at that time. Repeat Prograf level is pending 2. UTI with urine culture not growing any specific organism during his last admission but significantly improved with IV antibiotics. Patient is Being followed by ID 3. 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 4. Volume depletion 5. Elevated tacrolimus level last admission status post decreased dose. Repeat Trough level drawn yesterday resulted at 15.6 this evening. 6. S/p donor renal allograft for IgA nephropathy 15 yrs ago with baseline cr around 1.3-1.5mg/dL Plan: continue IV fluids hold prograf as level is high Continue antibiotics as per ID Continue current dose of immunosuppressive medications. Await workup of liver mass
== END 2022-12-25 19:13 | disposition short-term general hospital (02) | DRG 698 ==
LOC: EC 09:30 → 5NMEDONC 12:54 → 6NMEDSUR 12-23 16:35
PROVIDERS: ADMIT Internal Medicine; ATTEND Internal Medicine
DX: T86.13 Kidney transplant infection (principal); A41.9 Sepsis, unspecified organism; D84.9 Immunodeficiency, unspecified; N17.9 Acute kidney failure, unspecified; T86.19 Other complication of kidney transplant; N30.91 Cystitis, unspecified with hematuria; N18.30 Chronic kidney disease, stage 3 unspecified; E10.22 Type 1 diabetes mellitus with diabetic chronic kidney disease; Z20.822 Contact with and (suspected) exposure to COVID-19; E10.42 Type 1 diabetes mellitus with diabetic polyneuropathy; E86.1 Hypovolemia; Y83.0 Surgical operation with transplant of whole organ as the cause of abnormal reaction of the patient, or of later complication, without mention of misadventure at the time of the procedure; Z79.4 Long term (current) use of insulin; Z79.624 Long term (current) use of inhibitors of nucleotide synthesis; Z79.82 Long term (current) use of aspirin; Z79.890 Hormone replacement therapy; Z66 Do not resuscitate; Z79.899 Other long term (current) drug therapy; Z88.8 Allergy status to other drugs, medicaments and biological substances
CPT/HCPCS: 36415; 71046; 71250; 74176; 76705; 80048; 80053; 80197; 81001; 82105; 82378; 83036; 83605; 83735; 85025; 85652; 86140; 86301; 87040; 87086; 87635; 93005; 96361; 96365; 96366; 96375; 99285